=== PATIENT | female | born 1970 ===

== ENCOUNTER → 2020-03-11 14:30 | Outpatient (BNVA) | payer OTHER, SELFPAY | PROVIDERS: PCP Nurse Practitioner Family; Visit Provider Internal Medicine | DX: J45.909 Unspecified asthma, uncomplicated (principal); Z79.899 Other long term (current) drug therapy | CPT/HCPCS: 99212 ==

== ENCOUNTER 2020-04-03 13:33 | Outpatient (REF) | payer OTHER, SELFPAY ==
--- NOTE | 2020-04-03 | MM_ITS ---
EXAMINATION: MM SCREENING DIGITAL BREAST TOMOSYNTHESIS, BILATERAL CLINICAL INFORMATION: Screening. Asymptomatic. The lifetime risk of breast cancer based on the Tyrer-Cuzick Model is 8%. COMPARISON: Mammography: 04/13/2016, 05/15/2013 TECHNIQUE: Digital breast tomosynthesis is performed in both the craniocaudal and mediolateral oblique views along with computer-aided detection (CAD). Synthesized 2D images are generated from the tomosynthesis. FINDINGS: There are scattered areas of fibroglandular density (ACR BI-RADS breast composition Category b). There is fine fibronodular parenchymal pattern similar to prior studies. Nodularity posterior 3:00 left breast is decreased from 2014. Scattered bilateral parenchymal asymmetries are stable. Again, there is intramammary node upper left breast. There are no abnormal calcifications. No significant changes from prior exams. MM/MM tomosynthesis screening BI IMPRESSION: No mammographic evidence of malignancy. ASSESSMENT: BI-RADS 2: Benign RECOMMENDATION: Routine annual mammography screening. This patient's information was entered into a reminder system with a target due date for their next mammogram.
== END 2020-04-03 13:34 | disposition home or self-care (01) ==
LOC: HO.MAMMO 13:33
PROVIDERS: PCP Nurse Practitioner Family; Visit Provider Advanced Practice Midwife
DX: Z12.31 Encounter for screening mammogram for malignant neoplasm of breast (principal)
CPT/HCPCS: 77063; 77067

== ENCOUNTER 2020-07-05 14:55 | Outpatient (REF) | payer OTHER, SELFPAY ==
[2020-07-10 04:48] LABS: HPV mRNA E6/E7 rflx Not Detected (Not Detected)
== END 2020-07-05 14:56 | disposition home or self-care (01) ==
LOC: HO.LAB 14:55
PROVIDERS: PCP Nurse Practitioner Family; Visit Provider Advanced Practice Midwife
DX: Z01.419 Encounter for gynecological examination (general) (routine) without abnormal findings (principal); Z11.51 Encounter for screening for human papillomavirus (HPV); N95.0 Postmenopausal bleeding; Z92.29 Personal history of other drug therapy
CPT/HCPCS: 36415; 87624; 88142

== ENCOUNTER 2020-07-18 11:33 | Outpatient (REF) | payer OTHER, SELFPAY ==
--- NOTE | ~2020-07-18 | US_ITS ---
EXAMINATION: ULTRASOUND PELVIS COMPLETE CLINICAL INFORMATION: Postmenopausal bleeding. COMPARISON: None TECHNIQUE: Transabdominal and transvaginal imaging of pelvis is performed. FINDINGS: The uterus is anteverted and anteflexed measuring 7.8 cm in length, 3.4 cm in AP and 4.1 cm in transverse dimension. The endometrial thickness is 0.3 cm. There is minimal fluid in the cervix. The right ovary measures 1.8 x 1.8 x 1.8 cm and volume 4.1 mL. A dominant follicle is noted. Previously right ovary measured 2.7 x 1.7 x 2.0 cm. The left ovary measures 2.2 x 1.8 x 1.6 cm and volume 3.7 mL. It appears unremarkable. Previously it measured 2.7 x 1.4 x 1.8 cm. There is no free fluid in the cul-de-sac. US/US pelvic complete IMPRESSION: Unremarkable uterus. Minimal fluid in the cervix. The ovaries are grossly unremarkable. There is a dominant follicle in the right ovary.
--- NOTE | ~2020-07-18 | US_ITS ---
EXAMINATION: ULTRASOUND PELVIS COMPLETE CLINICAL INFORMATION: Postmenopausal bleeding. COMPARISON: None TECHNIQUE: Transabdominal and transvaginal imaging of pelvis is performed. FINDINGS: The uterus is anteverted and anteflexed measuring 7.8 cm in length, 3.4 cm in AP and 4.1 cm in transverse dimension. The endometrial thickness is 0.3 cm. There is minimal fluid in the cervix. The right ovary measures 1.8 x 1.8 x 1.8 cm and volume 4.1 mL. A dominant follicle is noted. Previously right ovary measured 2.7 x 1.7 x 2.0 cm. The left ovary measures 2.2 x 1.8 x 1.6 cm and volume 3.7 mL. It appears unremarkable. Previously it measured 2.7 x 1.4 x 1.8 cm. There is no free fluid in the cul-de-sac. US/US transvaginal IMPRESSION: Unremarkable uterus. Minimal fluid in the cervix. The ovaries are grossly unremarkable. There is a dominant follicle in the right ovary.
== END 2020-07-18 11:34 | disposition home or self-care (01) ==
LOC: HO.US 11:33
PROVIDERS: PCP Nurse Practitioner Family; Visit Provider Advanced Practice Midwife
DX: N95.0 Postmenopausal bleeding (principal); Z92.29 Personal history of other drug therapy
CPT/HCPCS: 76830; 76856

== ENCOUNTER → 2020-07-19 13:40 | Outpatient (BNVA) | payer OTHER, SELFPAY | PROVIDERS: Visit Provider Advanced Practice Midwife ==

== ENCOUNTER → 2020-07-29 10:32 | Outpatient (BNVA) | payer OTHER, SELFPAY | PROVIDERS: PCP Nurse Practitioner Family; Visit Provider Internal Medicine | DX: J45.909 Unspecified asthma, uncomplicated (principal); Z79.51 Long term (current) use of inhaled steroids | CPT/HCPCS: 99212 ==

== ENCOUNTER 2020-08-16 14:56 | Outpatient (REF) | payer OTHER, SELFPAY ==
[2020-08-17 10:21] LABS: Follicle Stimulating Hormone 54.3 mIU/mL
== END 2020-08-16 14:57 | disposition home or self-care (01) ==
LOC: HO.LAB 14:56
PROVIDERS: PCP Internal Medicine; Visit Provider Advanced Practice Midwife
DX: R23.2 Flushing (principal)
CPT/HCPCS: 36415; 83001

== ENCOUNTER → 2020-08-27 11:05 | Outpatient (BNVA) | payer OTHER, SELFPAY | PROVIDERS: PCP Nurse Practitioner Family; Visit Provider Advanced Practice Midwife ==

== ENCOUNTER → 2020-12-23 09:14 | Outpatient (BNVA) | payer OTHER, SELFPAY | PROVIDERS: PCP Internal Medicine; Visit Provider Internal Medicine | DX: J30.9 Allergic rhinitis, unspecified (principal); J45.50 Severe persistent asthma, uncomplicated; Z79.899 Other long term (current) drug therapy | CPT/HCPCS: 99212 ==

== ENCOUNTER 2021-01-31 14:27 | Emergency (ER) | payer OTHER, SELFPAY ==
--- NOTE | ~2021-01-31 | XR_ITS ---
EXAMINATION: XR CHEST CLINICAL INFORMATION: Shortness of breath COMPARISON: None TECHNIQUE: Frontal view of the chest was obtained. FINDINGS: The cardiac and mediastinal contours are stable. The lungs are clear. There is no pleural effusion or pneumothorax. There are degenerative changes of the spine. XR/XR chest 1V IMPRESSION: No evidence for acute disease in the chest.
[2021-01-31 14:38] VITALS: BP 152/88; PULSE 95; RESP 18; TEMP 36.6; O2SAT 95; BMI 26.5
[2021-01-31 15:57] VITALS: BP 128/64; PULSE 105; RESP 20; TEMP 37.7; O2SAT 96
--- NOTE | 2021-01-31 16:50 | ED.SOB ---
HPI - SOB/Dyspnea General Chief Complaint: Dyspnea Stated Complaint: diff breathing, wheezing, body ache Time Seen by Provider: 01/31/21 15:51 History of Present Illness HPI Narrative: 50-year-old female postmenopausal. Presented today with having increasing shortness of breath. Wheezing. Upper respiratory symptoms. She stopped smoking about 5 months ago. Positive coughing congestion upper respiratory symptoms. No change in smell or taste. No diarrhea. Patient got immunized with the Jose Luis and Jose Luis COVID vaccine back on January 23. Patient denies any diaphoresis. No chest pain. Positive generalized body ache. Patient has a history of asthma. Been admitted in the hospital in the past. She cannot recall when the last time she got admitted. No history of congestive heart failure. Patient is postmenopausal. Related Data Home Medications Medication Instructions Recorded Confirmed albuterol sulfate 90 mcg/actuation 2 puff INHALATION QID 03/11/20 12/23/20 aerosol inhaler alcohol swabs pad TOPICAL 03/11/20 12/23/20 cyclobenzaprine 10 mg tablet 10 mg PO BEDTIME PRN 03/11/20 12/23/20 fluticasone 500 mcg-salmeterol 50 INHALATION 03/11/20 mcg/dose blistr powdr for inhalation fluticasone propionate 50 INTRANASAL 03/11/20 12/23/20 mcg/actuation nasal spray,suspension ibuprofen 800 mg tablet 800 mg PO TID PRN 03/11/20 12/23/20 ipratropium 0.5 mg-albuterol 3 mg ml INHALATION QID PRN 03/11/20 12/23/20 (2.5 mg base)/3 mL nebulization soln montelukast 10 mg tablet 10 mg PO DAILY 03/11/20 12/23/20 nicotine (polacrilex) 2 mg gum mg PO 03/11/20 12/23/20 omeprazole 20 mg capsule,delayed 20 mg PO DAILY 03/11/20 12/23/20 release Previous Rx's Medication Instructions Recorded fluticasone 250 mcg-salmeterol 50 1 inh INHALATION BID 30 Days #60 ea 07/29/20 mcg/dose blistr powdr for inhalation (Advair Diskus) mepolizumab 100 mg/mL subcutaneous 100 mg SUBCUT Q4W #1 ml 08/20/20 auto-injector estradiol 0.05 mg-norethindrone 1 patch TRANSDERMAL 2XW #8 ea 08/27/20 0.25 mg/24 hr semiwkly transderm patch acetaminophen 300 mg-codeine 30 mg 1 tab PO Q8H PRN 3 Days #7 tab 01/31/21 tablet azithromycin 250 mg tablet See Rx Instructions .ROUTE 01/31/21 .COMPLEX #6 tab prednisone 20 mg tablet 40 mg PO DAILY #10 tab 01/31/21 Allergies Allergy/AdvReac Type Severity Reaction Status Date / Time varenicline [From CHANTIX] Allergy Unknown UNKNOWN Verified 12/23/20 09:21 nicotine [From NICODERM CQ] AdvReac Mild RASH Verified 12/23/20 09:21 Review of Systems Review of Systems: Positive coughing congestion upper respiratory symptoms. Positive generalized malaise. No change in smell or taste. No diarrhea no GI symptoms. Tolerating p.o.. Yes all other systems are reviewed and are negative PMFSH Past Medical History Attestation statement: The following information was validated with the patient. Medical History Allergic rhinitis Asthma Bronchial asthma Surgical History Hx of cholecystectomy Social History Social History Use of substances other than those prescribed or required for medical reasons: No Advance Directives: No Advance Directives Information Provided: No Physical Exam Vital Signs: Vital Signs: Last Vital Signs Temp 100.1 F 01/31/21 17:13 Pulse 113 H 01/31/21 17:20 Resp 20 01/31/21 17:13 BP 128/84 01/31/21 17:13 Pulse Ox 98 01/31/21 17:13 Body Mass Index 26.5 Appearance: Alert. Oriented X3. No acute distress. Eyes: Pupils equal, round and reactive to light. ENT: Pharynx normal. Neck: Normal inspection. Neck supple. No lymph nodes noted. No crepitus CVS: Normal heart rate and rhythm. Pulses normal. Normal S1 and S2 Respiratory: No respiratory distress. Positive expiratory wheezing noted bilaterally. Abdomen: Soft and nontender. No rigidity. No distention. good BS x4 Skin: Skin warm and dry. Normal skin color. Normal skin turgor. Extremities: No lower extremity edema. Neurovascular intact to all extremities. No Lacerations. No Rash Neuro: Oriented X 3. No motor deficit. No sensory deficit. Moving all extermities. No slurred speech MDM - SOB/Dyspnea MDM Narrative Medical decision making narrative: Patient symptom improved after neb treatment. Chest x-ray was grossly negative for any acute evidence of pneumonia pneumothorax. Patient well-appearing. O2 sat 96% on room air. COVID test was negative. Will discharge patient home. In stable condition. Differential Diagnosis Differential diagnosis: Likely asthma with exacerbation Medical Records Attestation: I reviewed the patient's medical records. Lab Data Attestation: I reviewed the patient's lab results. Labs: Lab Results 01/31/21 Range/Units 16:47 COVID-19 (ANNIKA) Negative (Negative) COVID-19 Clin Com See Note Discharge Plan Discharge Clinical Impression: Asthma, Upper respiratory infection Patient Disposition: Home, Self-Care Instructions: Asthma (ED), Upper Respiratory Infection (ED) Prescriptions: New azithromycin 250 mg tablet See Rx Instructions .ROUTE .COMPLEX Qty: 6 RF: 0 prednisone 20 mg tablet 40 mg PO DAILY Qty: 10 RF: 0 acetaminophen-codeine 300-30 mg tablet 1 tab PO Q8H PRN (Reason: pain) 3 Days Qty: 7 RF: 0 No Action mepolizumab 100 mg/mL auto-injector 100 mg subcut Q4W Qty: 1 RF: 12 nicotine (polacrilex) 2 mg gum PO RF: 0 fluticasone propionate 50 mcg/actuation spray,suspension intranasal RF: 0 ibuprofen 800 mg tablet 800 mg PO TID PRN (Reason: migraine) RF: 0 montelukast 10 mg tablet 10 mg PO DAILY RF: 0 omeprazole 20 mg capsule,delayed release(DR/EC) 20 mg PO DAILY RF: 0 fluticasone propion-salmeterol 500-50 mcg/dose blister with device inhalation RF: 0 cyclobenzaprine 10 mg tablet 10 mg PO BEDTIME PRN (Reason: muscle spasm) RF: 0 alcohol swabs Pads, Medicated topical RF: 0 albuterol sulfate 90 mcg/actuation HFA aerosol inhaler 2 puff inhalation QID RF: 0 ipratropium-albuterol 0.5 mg-3 mg(2.5 mg base)/3 mL solution for nebulization inhalation QID PRNRF: 0 fluticasone propion-salmeterol [Advair Diskus] 250-50 mcg/dose blister with device 1 inh inhalation BID 30 Days Qty: 60 RF: 5 estradiol-norethindrone acet 0.05-0.25 mg/24 hr patch semiweekly 1 patch transdermal 2XW Qty: 8 RF: 11 Referrals: Fern Schneider MD [Primary Care Provider] - 2 days
[2021-01-31 17:13] VITALS: BP 128/84; PULSE 114; RESP 20; TEMP 37.8; O2SAT 98
[2021-01-31 17:20] VITALS: PULSE 113; O2SAT 96
[2021-01-31 17:20] LABS: COVID-19 Test Negative (Negative)
[2021-01-31] MEDS: Albuterol/Iprat 2.5/0.5MG 3 ML AMPUL.NEB INHALE (17:20)
[2021-01-31 18:00] VITALS: BP 121/81; PULSE 121; RESP 20; TEMP 37.9; O2SAT 94
[2021-01-31] MEDS: predniSONE 20 MG TABLET 40 MG PO (18:53)
[2021-01-31] MEDS: Ibuprofen 400 MG TABLET PO (18:53)
[2021-01-31] MEDS: Acetaminophen 325 MG TABLET 650 MG PO (18:54)
== END 2021-01-31 19:30 | disposition home or self-care (01) ==
PROVIDERS: Emergency Medicine; Emergency Provider Emergency Medicine Emergency Medical Services; PCP Internal Medicine
DX: J06.9 Acute upper respiratory infection, unspecified (principal); J45.909 Unspecified asthma, uncomplicated; N95.9 Unspecified menopausal and perimenopausal disorder; M79.10 Myalgia, unspecified site; Z79.899 Other long term (current) drug therapy; Z20.822 Contact with and (suspected) exposure to COVID-19
CPT/HCPCS: 36415; 71045; 87635; 94640; 99284

== ENCOUNTER 2021-05-15 13:56 | Outpatient (REF) | payer OTHER, SELFPAY ==
--- NOTE | ~2021-05-15 | XR_ITS ---
EXAMINATION: XR HAND, LEFT CLINICAL INFORMATION: Cellulitis of left finger COMPARISON: None TECHNIQUE: PA, lateral, and oblique views of the left hand. FINDINGS: No fracture. Alignment is anatomic. Joint spaces are maintained. No erosions or soft tissue calcifications.. There is mild soft tissue swelling middle finger without soft tissue calcification. XR/XR hand LT min 3V IMPRESSION: Mild soft tissue swelling middle finger with. No visible fracture, dislocation or subluxation seen. No bony erosive changes.
== END 2021-05-15 13:57 | disposition home or self-care (01) ==
LOC: HO.XRAY 13:56
PROVIDERS: Visit Provider Nurse Practitioner Primary Care
DX: L03.012 Cellulitis of left finger (principal)
CPT/HCPCS: 73130

== ENCOUNTER → 2021-07-03 13:36 | Outpatient (BNVA) | payer OTHER, SELFPAY | PROVIDERS: PCP Internal Medicine; Visit Provider Internal Medicine | DX: J45.909 Unspecified asthma, uncomplicated (principal) | CPT/HCPCS: 94010; 99212 ==

== ENCOUNTER → 2021-10-02 13:13 | Outpatient (BNVA) | payer OTHER, SELFPAY | PROVIDERS: PCP Internal Medicine; Visit Provider Advanced Practice Midwife | DX: Z13.89 Encounter for screening for other disorder (principal) ==

== ENCOUNTER 2021-10-17 13:25 | Outpatient (REF) | payer OTHER, SELFPAY ==
--- NOTE | ~2021-10-17 | MM_ITS ---
EXAMINATION: MM SCREENING DIGITAL BREAST TOMOSYNTHESIS, BILATERAL CLINICAL INFORMATION: Screening. Asymptomatic. The lifetime risk of breast cancer based on the Tyrer-Cuzick Model is 8%. COMPARISON: Mammography: 04/03/2020, 04/13/2016 TECHNIQUE: Digital breast tomosynthesis is performed in both the craniocaudal and mediolateral oblique views along with computer-aided detection (CAD). Synthesized 2D images are generated from the tomosynthesis. FINDINGS: There are scattered areas of fibroglandular density (ACR BI-RADS breast composition Category b). Breast tissue composition borders on heterogeneously dense. There is fine fibronodular parenchymal pattern similar to prior studies. No interval dominant nodule. There are no significant masses, abnormal calcifications, or other abnormalities. The axilla and skin contours are unremarkable. MM/MM tomosynthesis screening BI IMPRESSION: No mammographic evidence of malignancy. ASSESSMENT: BI-RADS 2: Benign RECOMMENDATION: Routine annual mammography screening. This patient's information was entered into a reminder system with a target due date for their next mammogram.
== END 2021-10-17 13:26 | disposition home or self-care (01) ==
LOC: HO.MAMMO 13:25
PROVIDERS: PCP Nurse Practitioner Primary Care; Visit Provider Advanced Practice Midwife
DX: Z12.31 Encounter for screening mammogram for malignant neoplasm of breast (principal)
CPT/HCPCS: 77063; 77067

== ENCOUNTER → 2022-02-17 13:53 | Outpatient (BNVA) | payer OTHER, SELFPAY | PROVIDERS: PCP Nurse Practitioner Primary Care; Visit Provider Internal Medicine | DX: J45.909 Unspecified asthma, uncomplicated (principal) | CPT/HCPCS: 99212 ==

== ENCOUNTER 2022-06-12 14:59 | Outpatient (REF) | payer OTHER, SELFPAY ==
--- NOTE | ~2022-06-12 | US_ITS ---
EXAMINATION: US PELVIS CLINICAL INFORMATION: Postmenopausal bleeding COMPARISON: 07/18/2020 TECHNIQUE: Ultrasound of the pelvis is performed using both transabdominal and transvaginal transducers along with Doppler. Transvaginal imaging is performed due to inadequate visualization transabdominally. FINDINGS: Uterus: The uterus is anteverted and measures 6.1 x 2.9 x 3.0 cm. The double wall endometrial thickness is 0.4 mm. The uterus is smooth in contour and has normal myometrial echogenicity. Anterior uterine wall vascular calcification is noted. Adnexa: Both ovaries are visualized. There is normal color flow to the adnexa. There is no ovarian torsion. There is no pelvic ascites or fluid collection. Right ovary measures 2.7 x 1.8 x 1.9 cm. 1.4 x 1.1 x 1.1 cm intraovarian cyst Left ovary measures 2.6 x 1.7 x 1.1 cm. US/US pelvic and transvaginal IMPRESSION: 1. Endometrial thickness is within normal limits for a postmenopausal patient. 2. Right intraovarian 1.4 cm cyst. Recommend follow-up ultrasound in 6-12 weeks.
== END 2022-06-12 15:00 | disposition home or self-care (01) ==
LOC: HO.US 14:59
PROVIDERS: PCP Internal Medicine; Visit Provider Internal Medicine
DX: N95.0 Postmenopausal bleeding (principal)
CPT/HCPCS: 76830; 76856

== ENCOUNTER → 2022-06-29 08:37 | Outpatient (BNVA) | payer OTHER, SELFPAY | PROVIDERS: PCP Internal Medicine; Visit Provider Advanced Practice Midwife | DX: R23.2 Flushing (principal); R03.0 Elevated blood-pressure reading, without diagnosis of hypertension | CPT/HCPCS: 99212 ==

== ENCOUNTER → 2022-08-19 14:30 | Outpatient (BNVA) | payer OTHER, SELFPAY | PROVIDERS: PCP Internal Medicine; Visit Provider Internal Medicine | DX: J45.909 Unspecified asthma, uncomplicated (principal); Z79.899 Other long term (current) drug therapy | CPT/HCPCS: 99212 ==

== ENCOUNTER → 2022-09-23 10:23 | Outpatient (BNVA) | payer OTHER, SELFPAY | PROVIDERS: PCP Internal Medicine; Visit Provider Nurse Practitioner Family | DX: J45.901 Unspecified asthma with (acute) exacerbation (principal); Z79.52 Long term (current) use of systemic steroids; Z79.899 Other long term (current) drug therapy | CPT/HCPCS: 99212 ==

== ENCOUNTER 2022-10-30 16:19 | Outpatient (REF) | payer OTHER, SELFPAY ==
--- NOTE | ~2022-10-30 | XR_ITS ---
EXAMINATION: XR CHEST CLINICAL INFORMATION: 6 and coughing for 3 to 4 weeks, subacute, COMPARISON: 02/20/2021, 03/05/2019 TECHNIQUE: 2 views of the chest were obtained. FINDINGS: There is no gross pneumothorax. Heart size is normal. Mild rightward curvature of the thoracic spine with degenerative changes. Surgical clips right upper quadrant. No pleural effusion. No focal consolidation to to pneumonia. XR/XR chest 2V IMPRESSION: No evidence of pneumonia or pleural effusion.
== END 2022-10-30 16:20 | disposition home or self-care (01) ==
LOC: HO.XRAY 16:19
PROVIDERS: PCP Registered Nurse; Visit Provider Registered Nurse
DX: R05.2 Subacute cough (principal)
CPT/HCPCS: 71046

== ENCOUNTER 2022-12-08 18:13 | Outpatient (REF) | payer OTHER, SELFPAY ==
[2022-12-09 11:45] LABS: CT PCR NOT DETECTED (Not Detect.); NG PCR NOT DETECTED (Not Detect.)
== END 2022-12-08 18:14 | disposition home or self-care (01) ==
LOC: HO.LNP 18:13
PROVIDERS: Visit Provider Nurse Practitioner Primary Care
DX: R30.0 Dysuria (principal); Z20.822 Contact with and (suspected) exposure to COVID-19
CPT/HCPCS: 0353U; 87086; 87088; 87186

== ENCOUNTER 2022-12-08 19:19 | Outpatient (REF) | payer OTHER, SELFPAY | END 2022-12-08 19:20 | disposition home or self-care (01) | LOC: HO.HHCLNP 19:19 | PROVIDERS: Visit Provider Nurse Practitioner Primary Care | DX: R30.0 Dysuria (principal) | CPT/HCPCS: 87086; 87088; 87186 ==

== ENCOUNTER 2023-01-26 11:42 | Outpatient (REF) | payer OTHER, SELFPAY ==
--- NOTE | ~2023-01-26 | MM_ITS ---
EXAMINATION: MM SCREENING DIGITAL BREAST TOMOSYNTHESIS, BILATERAL CLINICAL INFORMATION: Screening. Asymptomatic. COMPARISON: Mammography: This study is compared with prior exams dating back to 2016. TECHNIQUE: Digital breast tomosynthesis is performed in both the craniocaudal and mediolateral oblique views along with computer-aided detection (CAD). Synthesized 2D images are generated from the tomosynthesis. FINDINGS: There are scattered areas of fibroglandular density (ACR BI-RADS breast composition Category b). There are no significant masses, abnormal calcifications, or other abnormalities. MM/MM tomosynthesis screening BI IMPRESSION: No mammographic evidence of malignancy. ASSESSMENT: BI-RADS BI-RADS 1 - Negative RECOMMENDATION: Routine annual mammography screening. 1 year F/U This examination should not preclude the clinical evaluation of a suspicious palpable abnormality. This patient's information was entered into a reminder system with a target due date for their next mammogram.
== END 2023-01-26 11:43 | disposition home or self-care (01) ==
LOC: HO.MAMMO 11:42
PROVIDERS: PCP Internal Medicine; Visit Provider Internal Medicine
DX: Z12.31 Encounter for screening mammogram for malignant neoplasm of breast (principal)
CPT/HCPCS: 77063; 77067

== ENCOUNTER → 2023-01-26 11:45 | Outpatient (BNV) | payer OTHER, SELFPAY | PROVIDERS: PCP Internal Medicine; Visit Provider Radiology Diagnostic Radiology | DX: Z12.31 Encounter for screening mammogram for malignant neoplasm of breast (principal) | CPT/HCPCS: 77063; 77067 ==

== ENCOUNTER 2023-02-21 09:39 | Emergency (ER) | payer OTHER, SELFPAY ==
--- NOTE | ~2023-02-21 | XR_ITS ---
EXAMINATION: XR CHEST CLINICAL INFORMATION: Cough COMPARISON: Chest radiograph from 10/30/2022 TECHNIQUE: 2 views of the chest were obtained. FINDINGS: No focal consolidation. No pneumothorax. Trachea is midline. Cardiac mediastinal silhouette is not enlarged. Aorta demonstrates mild tortuosity. No large pleural effusion. Osseous structures are intact. Soft tissues are unremarkable. Surgical clips right upper abdomen. XR/XR chest 2V IMPRESSION: No acute cardiopulmonary process.
[2023-02-21 09:41] VITALS: BP 115/94; PULSE 105; RESP 20; TEMP 36.7; O2SAT 97; BMI 31.8
--- NOTE | 2023-02-21 09:53 | ED_ITS ---
HPI - Asthma General Chief Complaint: Asthma Stated Complaint: Asthma Time Seen by Provider: 02/21/23 09:52 Source: patient, RN notes reviewed and old records reviewed Mode of arrival: ambulatory History of Present Illness HPI Narrative: 52-year-old female with a past medical history of allergic rhinitis, asthma, presenting to the ED complaining of asthma exacerbation x 4 days with productive cough, SOB, and chest discomfort with coughing. Admits to using nebulizer and inhalers at home without relief. Denies fever/chills, sore throat, recent travel, sick contacts. MD complaint: asthma attack and shortness of breath Related Data Home Medications Medication Instructions Recorded Confirmed albuterol sulfate 90 mcg/actuation 2 puff inhalation QID 03/11/20 09/23/22 aerosol inhaler alcohol swabs pad topical 03/11/20 09/23/22 cyclobenzaprine 10 mg tablet 10 mg PO BEDTIME PRN muscle spasm 03/11/20 09/23/22 fluticasone propionate 50 intranasal 03/11/20 09/23/22 mcg/actuation nasal spray,suspension ibuprofen 800 mg tablet 800 mg PO TID PRN migraine 03/11/20 09/23/22 ipratropium 0.5 mg-albuterol 3 mg ml inhalation QID PRN 03/11/20 09/23/22 (2.5 mg base)/3 mL nebulization soln montelukast 10 mg tablet 10 mg PO DAILY 03/11/20 09/23/22 nicotine (polacrilex) 2 mg gum mg PO 03/11/20 09/23/22 cholecalciferol (vitamin D3) 50 50 mcg PO DAILY 07/03/21 09/23/22 mcg (2,000 unit) capsule Previous Rx's Medication Instructions Recorded fluticasone 250 mcg-salmeterol 50 1 inh inhalation BID ASTHMA 30 07/29/20 mcg/dose blistr powdr for days #60 ea inhalation (Advair Diskus) Nucala 100 mg/mL subcutaneous 100 mg subcut Q4W #1 mL 09/18/22 auto-injector (mepolizumab) azithromycin 250 mg tablet See Rx Instructions PO .COMPLEX #6 09/23/22 tabs prednisone 10 mg tablet 40 mg (4 x 10 mg) PO DAILY 5 days 02/01/23 #20 tabs prednisone 20 mg tablet 40 mg (2 x 20 mg) PO DAILY 5 days 02/21/23 #10 tabs Allergies Allergy/AdvReac Type Severity Reaction Status Date / Time varenicline [From CHANTIX] Allergy Unknown UNKNOWN Verified 09/23/22 10:30 nicotine [From NICODERM CQ] AdvReac Mild RASH Verified 09/23/22 10:30 Review of Systems Review of Systems: Constitutional: No Fever, No Chills ENT/Mouth: No Ear Pain, No Nasal Congestion, No sore throat, No Rhinorrhea, No Swallowing Difficulty Cardiovascular: + Chest Pain w/cough, + SOB Respiratory: + Cough, + Sputum, + Wheezing Gastrointestinal: No Nausea, No Vomiting, No Abdominal pain Musculoskeletal: No joint pain, No Myalgias, No Joint Swelling Skin: No Skin Lesions, No rash Neuro: No Weakness Yes all other systems are reviewed and are negative Constitutional: Constitutional: Reports as per [facility] Past Medical History Attestation statement: The following information was validated with the patient. Source: old records reviewed Medical History Allergic rhinitis Bronchial asthma Asthma Surgical History Hx of cholecystectomy Social History Social History Alcohol intake: current Alcohol intake frequency: a few times a month Patient Tobacco Use Status: Former Tobacco user Advance Directives: No Sexual orientation: Straight/Heterosexual Gender identity: Female Physical Exam Vital Signs: Vital Signs: Last Vital Signs Temp 98.0 F 02/21/23 09:41 Pulse 84 02/21/23 12:46 Resp 18 02/21/23 12:46 BP 115/94 H 02/21/23 09:41 Pulse Ox 97 02/21/23 09:41 O2 Del Method Room Air 02/21/23 09:41 BMI result Body Mass Index 31.8 Const: General: cooperative, healthy appearing and no acute distress Orientation/consciousness: patient oriented x3 Limitations: no limitations HEENT: Head: Yes normal to inspection and Yes atraumatic Ears: hearing grossly normal bilaterally General nose exam: Normal external nose present Face and sinus: Yes normal facial exam Mouth: Normal oral and palatal mucosa present and no drooling Eyes: General: appearance normal, both eyes and all related structures EOM: EOMs intact bilaterally Neck: Neck: Yes normal visual inspection and Yes no meningeal signs Resp: Effort & Inspection: normal respiratory effort, Actively coughing and no respiratory distress Auscultation: wheezes expiratory wheezes and throughout Cardio: Rate: regular rate Heart sounds: S1 normal heart sound present and S2 normal heart sound present Skin: Rashes: no rashes Wounds: no wounds Neuro: General: patient oriented x3, tone normal and no meningeal signs Cranial nerves: Yes CN's II-XII intact bilaterally Gait exam (Neuro): Normal gait present Extrem: General: Yes normal to inspection Course Course Course Narrative: XR chest 2V IMPRESSION: No acute cardiopulmonary process. -COVID negative -1150--on re-evaluation post DuoNeb patient with continued expiratory wheeze, additional neb ordered. -1333--on re-evaluation breath sounds improved, still slight end expiratory residual wheeze. Additional DuoNeb offered however patient would like to be discharged home, she has machine at home with solution. Discussed diligent use of machine over the next few days. Results discussed with patient including worrisome signs and symptoms and strict return precautions, and when to return to the emergency department. They verbalized understanding and feel safe for discharge at this time. Medications Administered Discontinued Medications Generic Name Dose Route Start Last Admin Trade Name Valdezq PRN Reason Stop Dose Admin Albuterol/Ipratropium 3 ml 02/21/23 11:32 02/21/23 11:34 Albuterol/Iprat 2.5/0.5mg 3 Ml Ampul.Neb INHALE 02/21/23 11:33 3 ml ONCE ONE Administration Albuterol/Ipratropium 3 ml 02/21/23 11:49 02/21/23 12:45 Albuterol/Iprat 2.5/0.5mg 3 Ml Ampul.Neb INHALE 02/21/23 11:50 3 ml ONCE ONE Administration Prednisone 40 mg 02/21/23 10:02 02/21/23 10:58 Prednisone 20 Mg Tablet PO 02/21/23 10:03 40 mg ONCE ONE Administration Medical Decision Making Medical Decision Making MDM Narrative: 52-year-old female with a past medical history of allergic rhinitis, asthma, presenting to the ED complaining of asthma exacerbation x 4 days with productive cough, SOB, and chest discomfort with coughing. On exam mildly tachycardic likely from coughing, NAD, nontoxic appearing, no respiratory distress, diffuse expiratory wheeze noted. Concern for viral syndrome vs asthma exacerbation vs pneumonia vs bronchitis. Lower suspicion for ACS/PE Plan: COVID-19 testing, CXR, ED bronchodilator protocol, PO Prednisone Please refer to course for remaining clinical decision making, interpretation of labs/imaging results, and discussions with consultants and/or family members. Differential Diagnosis Differential Diagnoses: The differential diagnosis associated with the presentation includes As above Lab Data Labs: Lab Results 02/21/23 Range/Units 10:08 COVID-19 (ANNIKA) Negative (Negative) COVID-19 Clin Com See Note Independent Interpretation I performed an independent interpretation of an: Plain X-Ray Radiology Impression Discussion of test interpretation with radiology: I have reviewed the radiologist's reading. External Record Review External record reviewed: Inpatient record, Office record, Outpatient record, Prior outpatient labs, Prior outpatient radiology, Primary care record and Outside ED record Tests considered The following testing was considered but not selected: As above Prescription Management I considered prescription management with: Antibiotic Chronic Conditions Patient?s care impacted by: Other (asthma) Discharge Plan Discharge Clinical Impression: Asthma with acute exacerbation Patient Disposition: Home, Self-Care Instructions: Asthma (DC) Additional Instructions: Chest x-ray unremarkable. You tested negative for COVID-19 Continue to use your neb machine and inhalers at home In addition take prednisone as prescribed Follow-up with your doctor If symptoms persist or worsen return to the ED Prescriptions: New prednisone 20 mg tablet 40 mg PO DAILY 5 Days Qty: 10 0RF No Action Nucala 100 mg/mL auto-injector 100 mg subcut Q4W Qty: 1 11RF prednisone 10 mg tablet 40 mg PO DAILY 5 Days Qty: 20 0RF nicotine (polacrilex) 2 mg gum PO fluticasone propionate 50 mcg/actuation spray,suspension intranasal ibuprofen 800 mg tablet 800 mg PO TID PRN (Reason: migraine) montelukast 10 mg tablet 10 mg PO DAILY cyclobenzaprine 10 mg tablet 10 mg PO BEDTIME PRN (Reason: muscle spasm) alcohol swabs Pads, Medicated topical albuterol sulfate 90 mcg/actuation HFA aerosol inhaler 2 puff inhalation QID ipratropium-albuterol 0.5 mg-3 mg(2.5 mg base)/3 mL solution for nebulization inhalation QID PRN fluticasone propion-salmeterol [Advair Diskus] 250-50 mcg/dose blister with device 1 inh inhalation BID 30 Days Qty: 60 5RF cholecalciferol (vitamin D3) 50 mcg (2,000 unit) capsule 50 mcg PO DAILY azithromycin 250 mg tablet See Rx Instructions PO .COMPLEX Qty: 6 0RF Rx Instructions: For 250 mg dose pack: take 500 mg today (day 1), then 250 mg for 4 days (days 2-5) PO Referrals: Fern Schneider MD [Primary Care Provider] - 3 days Stand Alone Forms: Work/School Release
[2023-02-21 10:36] LABS: COVID-19 Test Negative (Negative); IDNOW Serial# BCCEAD1C
[2023-02-21] MEDS: predniSONE 20 MG TABLET 40 MG PO (10:58)
--- NOTE | 2023-02-21 11:00 | PC.NURSE ---
pt medicated per MAR
[2023-02-21 11:34] VITALS: PULSE 78; RESP 16; O2SAT 95
[2023-02-21] MEDS: Albuterol/Iprat 2.5/0.5MG 3 ML AMPUL.NEB INHALE ×2 (11:34→12:45)
[2023-02-21 12:46] VITALS: PULSE 84; RESP 18; O2SAT 96
== END 2023-02-21 13:44 | disposition home or self-care (01) ==
PROVIDERS: Emergency Provider Emergency Medicine; PCP Internal Medicine
DX: J45.901 Unspecified asthma with (acute) exacerbation (principal); R05.9 Cough, unspecified; R07.89 Other chest pain; R06.02 Shortness of breath; Z11.52 Encounter for screening for COVID-19; Z20.822 Contact with and (suspected) exposure to COVID-19
CPT/HCPCS: 71046; 87635; 94640; 99283; 99284

== ENCOUNTER 2023-03-01 14:03 | Outpatient (AMB) | payer OTHER, SELFPAY ==
--- NOTE | 2023-03-01 14:07 | A.OFFVIS_ITS ---
Intake Vital Signs 03/01/23 14:09 Height 5 ft 1 in Weight 166 lb BMI 31.4 BP 110/72 Blood Pressure Location Lt brachial Position Sitting Pulse 107 H Pulse Source Pulse Oximeter Pulse Oximetry (%) 98 Oxygen Delivery Method Room Air Intake Visit Reasons: Asthma Intake Note: pt is here for follow up and still on Nucala, and feeling okay and she does feel little wheezy. Cloth Shrinking Tester Required: No Allergies varenicline [From CHANTIX] Allergy (Unknown, Verified 03/01/23 14:26) UNKNOWN nicotine [From NICODERM CQ] Adverse Reaction (Mild, Verified 03/01/23 14:26) RASH Medication List - Last Reconciled 03/01/23 by Lianet Catalan MD albuterol sulfate 90 mcg/actuation 2 puffs inhalation QID alcohol swabs pad topical cholecalciferol (vitamin D3) 50 mcg PO DAILY cyclobenzaprine 10 mg PO BEDTIME PRN fluticasone propion-salmeterol 250-50 mcg/dose (Advair Diskus) 1 inh inhalation BID 30 days fluticasone propionate 50 mcg/actuation intranasal ibuprofen 800 mg PO TID PRN ipratropium-albuterol 0.5 mg-3 mg(2.5 mg base)/3 mL mL inhalation QID PRN montelukast 10 mg PO DAILY nicotine (polacrilex) mg PO Nucala (mepolizumab) 100 mg subcut Q4W NS Do you need a note to return to daycare/school/sports/work: No HPI Asthma HPI Details 52 YEARS OLD FEMALE A KNOWN CASE OF CHRONIC PERSISTENT BRONCHIAL ASTHMA, WITH RECURRENT ACUTE EXACERBATIONS, BUT HAD IMPROVED SIGNIFICANTLY AFTER SHE WAS STARTED ON BIOLOGIC TREATMENT ( NUCALA ) SHE WAS SEEN IN THE EMERGENCY ROOM ON 01/31 AND 1021, WITH EXACERBATION OF HER ASTHMA. SHE GOT BETTER BUT, COMPLAINS OF ONGOING WHEEZING, DENIES ANY A.CUTE RESPIRATORY INFECTION. SHE STILL HAS CAT AT HOME, AND SHE HAS BEEN OUT OF ADVAIR FOR THE LAST FEW WEEKS. [facility] Medical History Allergic rhinitis Bronchial asthma Asthma Surgical History Hx of cholecystectomy Social History Alcohol intake: current Alcohol intake frequency: a few times a month Patient Tobacco Use Status: Former Tobacco user Sexual orientation: Straight/Heterosexual Gender identity: Female Review of Systems Const All systems reviewed & are unremarkable except as noted in HPI and below ENT Denies nasal congestion Card Denies chest pain, Denies leg edema and Denies dyspnea on exertion Resp Reports cough (mild , intermittent . ) and Denies dyspnea on exertion GI Reports no additional complaints Reports no additional complaints Musc Reports no additional complaints Neuro Reports no additional complaints Psych Reports no additional complaints Endo Reports no additional complaints Physical Exam Vital Signs: Last Vital Signs Pulse 107 H 03/01/23 14:09 BP 110/72 03/01/23 14:09 Pulse Ox 98 03/01/23 14:09 Oxygen Delivery Method Room Air 03/01/23 14:09 BMI result Body Mass Index 31.4 Const General: healthy appearing, comfortable, no acute distress, alert and awake Orientation/consciousness: patient oriented x3 HEENT Head: Yes normal to inspection General nose exam: No nasal polyps present and No nasal discharge present Face and sinus: Yes sinuses nontender Mouth: oropharynx normal Throat: Yes posterior oropharynx normal Eyes General: appearance normal, both eyes and all related structures Neck Neck: Yes normal visual inspection, Yes no lymphadenopathy, Yes trachea midline and Yes no JVD Thyroid: Thyroid normal Chest Chest palpation & inspection: normal inspection of the chest, normal palpation of entire chest wall and no tenderness Resp Other: Percussion note is resonant,, breath sounds are equal. she does have scattered expiratory wheezes on khadra.th sides Cardio Palpation: normal PMI Rate: regular rate Rhythm: regular rhythm Heart sounds: no gallops and no murmurs Peripheral pulses: Peripheral pulses 2+ throughout GI Palpation (GI): Soft to palpation, nontender, No hepatosplenomegaly present and no masses Auscultation: normal bowel sounds Back/Spine/Pelvis Thoracic/Lumbar Spine: thoracic and lumbar spine normal to inspection Skin General skin exam: no rashes or lesions noted Neuro General: patient oriented x3 and no focal motor deficits Cranial nerves: Yes CN's II-XII intact bilaterally Extrem General: Yes normal to inspection, Yes no clubbing, cyanosis or edema and Yes no calf tenderness Psych Appearance: grossly normal and well kempt Speech and movement: Normal speech and movement present Assessment & Plan Assessment & Plan (1) Allergic rhinitis: Comment: WELL CONTROLLED , WITH MILD INTERMITTENT FLARE UPS. TX CONT. MONTELUKAST 10 MG DAILY , AND FLONASE -50 2 SPRAYS IN EACH NOSTRIL ONCE A DAY . Code(s): J30.9 - Allergic rhinitis, unspecified (2) Bronchial asthma: Comment: PATIENT HAS CHRONIC PERSISTENT BRONCHIAL ASTHMA, MOST LIKELY ALLERGIC, MAIN TRIGGER AT HOME IS CAT , HAS BEEN EXPLAINED MANY TIMES THAT SHE SHOULD TRY TO AVOID TOO MUCH CONTACT. WITH THE CAT, DOES NOT WANT TO GIVE UP. TX : NUCALA 100 MG SUBQ Q.4 WEEKS. ADVAIR 250-51 I.NHALATION B.I.D. IPRATROPIUM-ALBUTEROL SOLUTION IN THE NEBULIZER Q 6 HOURS P.R.N.. FOR OUTDOORS ALBUTEROL HFA Q 4-6 HOURS P.R.N. * PREDNISONE 10 MG 1 B.I .D. FOR 1 WEEK , P.R.N. FOR ACUTE EXACERBATION. PRESCRIBED TO JUST KEEP AT HOME , BUT TRY TO LIMITS THE USE OF PREDNISONE MUCH POSSIB.LE Code(s): J45.909 - Unspecified asthma, uncomplicated Medications: New prednisone 10 mg PO BID 14 tabs 0RF ASTHMA EXCARBATION . 1 week Refilled fluticasone propion-salmeterol 250-50 mcg/dose (Advair Diskus) 1 inh inhalation BID 30 days 60 ea 5RF ASTHMA Coding Level of Care Code Est Pt Level 3 (30635) Diagnoses Allergic rhinitis J30.9 Bronchial asthma J45.909
[2023-03-01 14:09] VITALS: BP 110/72; PULSE 107; O2SAT 98; BMI 31.4
== END 2023-03-01 14:36 | disposition home or self-care (01) ==
PROVIDERS: PCP Internal Medicine; Visit Provider Internal Medicine
DX: J30.9 Allergic rhinitis, unspecified (principal); J45.909 Unspecified asthma, uncomplicated
CPT/HCPCS: 99213

== ENCOUNTER → 2023-03-01 14:03 | Outpatient (BNVA) | payer OTHER, SELFPAY | PROVIDERS: PCP Internal Medicine; Visit Provider Internal Medicine | DX: J45.909 Unspecified asthma, uncomplicated (principal) | CPT/HCPCS: 99212 ==

== ENCOUNTER 2023-06-30 15:00 | Outpatient (AMB) | payer OTHER, SELFPAY ==
--- NOTE | 2023-06-30 15:08 | A.OFFVIS_ITS ---
Intake Vital Signs 06/30/23 15:11 Height 5 ft 1 in Weight 159 lb 13.362 oz BMI 30.2 BP 110/70 Blood Pressure Location Lt brachial Position Sitting Pulse 108 H Pulse Source Pulse Oximeter Pulse Oximetry (%) 98 Oxygen Delivery Method Room Air Intake Visit Reasons: Asthma Intake Note: pt is here for follow up and states no asthma flare ups, on nucala. District Or District Office Director Required: No Allergies varenicline [From CHANTIX] Allergy (Unknown, Verified 06/30/23 15:25) UNKNOWN nicotine [From NICODERM CQ] Adverse Reaction (Mild, Verified 06/30/23 15:25) RASH Medication List - Last Reconciled 06/30/23 by Lianet Catalan MD albuterol sulfate 90 mcg/actuation 2 puffs inhalation QID alcohol swabs pad topical cholecalciferol (vitamin D3) 50 mcg PO DAILY cyclobenzaprine 10 mg PO BEDTIME PRN fluticasone propion-salmeterol 250-50 mcg/dose (Advair Diskus) 1 inh inhalation BID 30 days fluticasone propionate 50 mcg/actuation intranasal ibuprofen 800 mg PO TID PRN ipratropium-albuterol 0.5 mg-3 mg(2.5 mg base)/3 mL mL inhalation QID PRN montelukast 10 mg PO DAILY nicotine (polacrilex) mg PO Nucala (mepolizumab) 100 mg subcut Q4W NS Do you need a note to return to daycare/school/sports/work: No HPI Asthma HPI Details 53 YEARS OLD FEMALE A CASE OF ALLERGIC R HINITIS AND SEVERE BRONCHIAL ASTHMA, NONSMOKER , USING NICOTINE GUM NEEDED. SHE IS ON NUCALA 100 MG SUBQ Q.4 WEEKS. HAS NOT NEEDED. TO USE PREDNISONE SHE IS DOING WELL WITH THE USE OF ADVAIR 250-51 INHALATION B.I.D. AND IPRATROPIUM-ALBUTEROL SOLUTION IN THE NEBULIZER ONLY NEEDED. OR ALBUTEROL HFA 2 PUFFS Q 4-6 HOURS P.R.N. WHEN OUTDOORS. THE USE OF RESCUE MEDS HAS BEEN CUT DOWN SIGNIFICANTLY. SHE ALSO USES MONTELUKAST 10 MG DAILY. SHE IS DOING VERY WELL AND IS VERY HAPPY WITH THE USE OF NUCALA. [facility] Medical History Allergic rhinitis Bronchial asthma Asthma Surgical History Hx of cholecystectomy Social History Alcohol intake: current Alcohol intake frequency: a few times a month Patient Tobacco Use Status: Former Tobacco user Sexual orientation: Straight/Heterosexual Gender identity: Female Review of Systems Const All systems reviewed & are unremarkable except as noted in HPI and below ENT Denies nasal congestion Card Denies chest pain, Denies leg edema and Denies dyspnea on exertion Resp Reports cough (mild , intermittent . ) and Denies dyspnea on exertion GI Reports no additional complaints Reports no additional complaints Musc Reports no additional complaints Neuro Reports no additional complaints Psych Reports no additional complaints Endo Reports no additional complaints Physical Exam Vital Signs: Last Vital Signs Pulse 108 H 06/30/23 15:11 BP 110/70 06/30/23 15:11 Pulse Ox 98 06/30/23 15:11 Oxygen Delivery Method Room Air 06/30/23 15:11 BMI result Body Mass Index 30.2 Const General: healthy appearing, comfortable, no acute distress, alert and awake Orientation/consciousness: patient oriented x3 HEENT Head: Yes normal to inspection General nose exam: No nasal polyps present and No nasal discharge present Face and sinus: Yes sinuses nontender Mouth: oropharynx normal Throat: Yes posterior oropharynx normal Eyes General: appearance normal, both eyes and all related structures Neck Neck: Yes normal visual inspection, Yes no lymphadenopathy, Yes trachea midline and Yes no JVD Thyroid: Thyroid normal Chest Chest palpation & inspection: normal inspection of the chest, normal palpation of entire chest wall and no tenderness Resp Other: Percussion note is resonant,, breath sounds are equal. No wheezes or rhonchi are heard today. Cardio Palpation: normal PMI Rate: regular rate Rhythm: regular rhythm Heart sounds: no gallops and no murmurs Peripheral pulses: Peripheral pulses 2+ throughout GI Palpation (GI): Soft to palpation, nontender, No hepatosplenomegaly present and no masses Auscultation: normal bowel sounds Back/Spine/Pelvis Thoracic/Lumbar Spine: thoracic and lumbar spine normal to inspection Skin General skin exam: no rashes or lesions noted Neuro General: patient oriented x3 and no focal motor deficits Cranial nerves: Yes CN's II-XII intact bilaterally Extrem General: Yes normal to inspection, Yes no clubbing, cyanosis or edema and Yes no calf tenderness Psych Appearance: grossly normal and well kempt Speech and movement: Normal speech and movement present Assessment & Plan Assessment & Plan (1) Allergic rhinitis: Comment: WELL CONTROLLED , WITH MILD INTERMITTENT FLARE UPS. Code(s): J30.9 - Allergic rhinitis, unspecified Plan: TX CONT. MONTELUKAST 10 MG DAILY , AND FLONASE -50 2 SPRAYS IN EACH NOSTRIL ONCE A DAY . (2) Bronchial asthma: Comment: PATIENT HAS CHRONIC PERSISTENT BRONCHIAL ASTHMA, MOST LIKELY ALLERGIC, MAIN TRIGGER AT HOME IS CAT , HAS BEEN EXPLAINED MANY TIMES THAT SHE SHOULD TRY TO AVOID TOO MUCH CONTACT. WITH THE CAT, DOES NOT WANT TO GIVE UP. Code(s): J45.909 - Unspecified asthma, uncomplicated Plan: TX : NUCALA 100 MG SUBQ Q.4 WEEKS. ADVAIR 250-51 I.NHALATION B.I.D. IPRATROPIUM-ALBUTEROL SOLUTION IN THE NEBULIZER Q 6 HOURS P.R.N.. FOR OUTDOORS ALBUTEROL HFA Q 4-6 HOURS P.R.N. Coding Level of Care Code Est Pt Level 3 (46096) Diagnoses Allergic rhinitis J30.9 Bronchial asthma J45.909
[2023-06-30 15:11] VITALS: BP 110/70; PULSE 108; O2SAT 98; BMI 30.2
== END 2023-06-30 15:25 | disposition home or self-care (01) ==
PROVIDERS: PCP Internal Medicine; Visit Provider Internal Medicine
DX: J30.9 Allergic rhinitis, unspecified (principal); J45.909 Unspecified asthma, uncomplicated
CPT/HCPCS: 99213

== ENCOUNTER → 2023-06-30 15:00 | Outpatient (BNVA) | payer OTHER, SELFPAY | PROVIDERS: PCP Internal Medicine; Visit Provider Internal Medicine | DX: J45.909 Unspecified asthma, uncomplicated (principal) | CPT/HCPCS: 99212 ==

== ENCOUNTER 2023-11-06 18:39 | Emergency (ER) | payer OTHER, SELFPAY ==
--- NOTE | ~2023-11-06 | XR_ITS ---
EXAMINATION: XR LUMBOSACRAL SPINE CLINICAL INFORMATION: Right lower back pain COMPARISON: None available. TECHNIQUE: Three views of the lumbosacral spine. FINDINGS: There are 5 lumbar-type nonrib-bearing vertebrae. The vertebral body heights and alignment are maintained. Intervertebral disc spaces are preserved except for probable mild narrowing of the L2-L3 disc space. Posterior elements appear intact. Minimal anterior endplate spurring is noted at multiple levels in the lumbar spine and visualized lower thoracic spine. No suspicious lytic or blastic osseous lesions are seen. Postcholecystectomy surgical clips are noted in the right upper abdominal quadrant. Moderate to large stool burden in the visualized colon. On limited evaluation, sclerosis along the sacral and iliac sides of bilateral sacroiliac joints is suspected. XR/XR lumbar spine 2-3V IMPRESSION: No evidence of acute compression fracture or suspicious osseous lesion. Probable sclerosis along the sacroiliac joints; in the appropriate clinical settings findings may suggest sacroiliitis. Recommend clinical correlation and further imaging evaluation as clinically deemed necessary.
[2023-11-06 18:43] VITALS: BP 151/88; PULSE 95; RESP 18; TEMP 36.7; O2SAT 95; BMI 27.4
--- NOTE | 2023-11-06 21:35 | ED_ITS ---
HPI - General Adult General Chief complaint: Back Pain/Injury Stated complaint: right leg pain Time Seen by Provider: 11/06/23 21:35 History of Present Illness ED Provider: Keerthi GREGG narrative: The patient is a 53-year-old woman who says that she has a history of asthma but is otherwise in fairly good health. She is currently going through menopause. She says that yesterday morning, on Wednesday morning she woke up with significant right lower back pain that has been radiating down the right leg. The pain today was interfering with her ability to walk and she finally drove to the emergency room for evaluation. No fever, sweats, chills. She says that she has been lifting heavy bricks on Wednesday and this might have been a factor in developing this low back pain. She does not have a history of back problems. She works as a COLLECTIONS TECHNICIAN. No bowel or bladder control problems. Related Data Home Medications ?Medication ?Instructions ?Recorded ?Confirmed albuterol sulfate 90 mcg/actuation 2 puff inhalation QID 03/11/20 03/01/23 aerosol inhaler alcohol swabs pad topical 03/11/20 03/01/23 cyclobenzaprine 10 mg tablet 10 mg PO BEDTIME PRN muscle spasm 03/11/20 03/01/23 fluticasone propionate 50 intranasal 03/11/20 03/01/23 mcg/actuation nasal spray,suspension ibuprofen 800 mg tablet 800 mg PO TID PRN migraine 03/11/20 03/01/23 ipratropium 0.5 mg-albuterol 3 mg ml inhalation QID PRN 03/11/20 03/01/23 (2.5 mg base)/3 mL nebulization soln montelukast 10 mg tablet 10 mg PO DAILY 03/11/20 03/01/23 nicotine (polacrilex) 2 mg gum mg PO 03/11/20 03/01/23 cholecalciferol (vitamin D3) 50 50 mcg PO DAILY 07/03/21 03/01/23 mcg (2,000 unit) capsule Previous Rx's ?Medication ?Instructions ?Recorded fluticasone 250 mcg-salmeterol 50 1 inh inhalation BID ASTHMA 30 03/01/23 mcg/dose blistr powdr for days #60 ea inhalation (Advair Diskus) Nucala 100 mg/mL subcutaneous 100 mg subcut Q4W #1 mL 10/18/23 auto-injector (mepolizumab) cyclobenzaprine 10 mg tablet 10 mg PO TID PRN muscle spasm #14 11/06/23 tabs ibuprofen 600 mg tablet 600 mg PO Q6H PRN pain #14 tabs 11/06/23 morphine 15 mg immediate release 15 mg PO Q6H PRN pain #10 tabs 11/06/23 tablet Allergies Allergy/AdvReac Type Severity Reaction Status Date / Time varenicline [From CHANTIX] Allergy Unknown UNKNOWN Verified 11/06/23 18:45 nicotine [From NICODERM CQ] AdvReac Mild RASH Verified 11/06/23 18:45 Review of Systems Review of Systems: Yes all other systems are reviewed and are negative [facility] Past Medical History Medical History Allergic rhinitis Bronchial asthma Asthma Surgical History Hx of cholecystectomy Social History Social History Alcohol intake: current Alcohol intake frequency: a few times a month Patient Tobacco Use Status: Former Tobacco user Advance Directives: No Advance Directives Information Provided: No Do you have a plan to hurt others: No Plan Sexual orientation: Straight/Heterosexual Gender identity: Female Physical Exam ED Vital Signs: Vital Signs - 24 hr 11/06/23 18:43 11/06/23 23:03 11/07/23 00:36 Temperature 98.0 F 97.7 F 98.0 F Pulse Rate 95 79 80 Respiratory Rate 18 18 18 Blood Pressure 151/88 H 126/77 140/79 H Pulse Oximetry 95 99 98 Oxygen Delivery Method Room Air Room Air Room Air 11/07/23 00:40 Temperature 98.0 F Pulse Rate 80 Respiratory Rate 18 Blood Pressure 140/79 H Pulse Oximetry 98 Oxygen Delivery Method Room Air BMI result Body Mass Index 27.4 Const Other: The patient is awake, alert, pleasant, cooperative. She did not look in distress at rest but was in obvious discomfort when moving around. HENMT Other: Face is symmetrical and unremarkable. Mucous membranes moist. Eyes Other: Pupils are round equal, conjunctivae clear Resp Effort & Inspection: normal respiratory effort Auscultation: clear to auscultation bilaterally Cardio Rate: regular rate Rhythm: regular rhythm Heart sounds: S1 normal heart sound present and S2 normal heart sound present GI Other: Abdomen is soft and nontender Back/Spine/Pelvis Other: No definite midline vertebral tenderness. There is right paraspinous tenderness. Skin Other: Skin is dry and unremarkable. Neuro Other: The patient has pain with moving the right leg but no jas weakness. The patient has minimal reflexes in either of the knees or ankles. With augmentation maneuvers there is a 1+ reflexes at the left knee in the left ankle. I really could not get much in the way of reflexes in the right knee or right ankle. Minimal Babinski responses. Sensation is intact throughout. Extrem Other: No calf swelling or tenderness. No peripheral edema. No asymmetry. Negative contralateral straight leg raise test. Positive ipsilateral straight leg raise test. Medications Administered Discontinued Medications Generic Name Dose Route Start Last Admin Trade Name Freq PRN Reason Stop Dose Admin Acetaminophen 975 mg 11/06/23 21:45 11/06/23 21:49 Acetaminophen 325 Mg Tablet PO 11/06/23 21:46 975 mg ONCE ONE Administration Ketorolac Tromethamine 30 mg 11/06/23 21:44 11/06/23 21:49 Ketorolac Tromethamine 30 Mg/Ml Vial IM 11/06/23 21:45 30 mg ONCE ONE Administration Medical Decision Making Medical Decision Making [facility] Narrative: The patient is a 53-year-old woman who presents with right lower back pain radiating down the right leg. There are no red flags. An x-ray of the lumbar spine shows sclerosis along the sacroiliac joints but no other acute findings. This is essentially a sciatica like syndrome. The patient will be given a work note. She will be given prescriptions for ibuprofen, cyclobenzaprine, and morphine. She should follow up with her PCP. Discharge Plan Discharge Clinical Impression: Low back pain radiating to right leg Patient Disposition: Home, Self-Care Instructions: Acute Low Back Pain (ED), Lower Back Exercises (ED) Additional Instructions: You seem to have a significant case of low back pain. I have sent a prescription for ibuprofen that you may use as needed for pain. You may also use acetaminophen (Tylenol), 2 extra-strength tablets up to 3 times a day. In addition to ibuprofen and acetaminophen I have sent prescriptions for cyclobenzaprine and morphine. These are medications that can make you sleepy and you should only use these medications when you are home and planning on resting. Please contact your regular doctor on Wednesday to set up a prompt follow up appointment. You have been given a work note for the next week. Return to the emergency room if significantly worse. Prescriptions: New ibuprofen 600 mg tablet 600 mg PO Q6H PRN (Reason: pain) Qty: 14 0RF cyclobenzaprine 10 mg tablet 10 mg PO TID PRN (Reason: muscle spasm) Qty: 14 0RF morphine 15 mg tablet 15 mg PO Q6H PRN (Reason: pain) Qty: 10 0RF Rx Instructions: Partial Fill upon patient request. No Action Nucala 100 mg/mL auto-injector 100 mg subcut Q4W Qty: 1 12RF nicotine (polacrilex) 2 mg gum PO fluticasone propionate 50 mcg/actuation spray,suspension intranasal ibuprofen 800 mg tablet 800 mg PO TID PRN (Reason: migraine) montelukast 10 mg tablet 10 mg PO DAILY cyclobenzaprine 10 mg tablet 10 mg PO BEDTIME PRN (Reason: muscle spasm) alcohol swabs Pads, Medicated topical albuterol sulfate 90 mcg/actuation HFA aerosol inhaler 2 puff inhalation QID ipratropium-albuterol 0.5 mg-3 mg(2.5 mg base)/3 mL solution for nebulization inhalation QID PRN cholecalciferol (vitamin D3) 50 mcg (2,000 unit) capsule 50 mcg PO DAILY fluticasone propion-salmeterol [Advair Diskus] 250-50 mcg/dose blister with device 1 inh inhalation BID 30 Days Qty: 60 5RF Referrals: Fern Schneider MD [Primary Care Provider] - (acute low back pain) Stand Alone Forms: Work/School Release Interventions: ED Discharge Assessment Last Done: 11/07/23 00:40 Discharge Date/Time: 11/07/23 00:40 Print Language: Icelandic
[2023-11-06] MEDS: Acetaminophen 325 MG TABLET 975 MG PO (21:49)
[2023-11-06] MEDS: Ketorolac Tromethamine 30 MG/ML VIAL IM (21:49)
[2023-11-06 23:03] VITALS: BP 126/77; PULSE 79; RESP 18; TEMP 36.5; O2SAT 99
[2023-11-07 00:36] VITALS: BP 140/79; PULSE 80; RESP 18; TEMP 36.7; O2SAT 98
[2023-11-07 00:40] VITALS: BP 140/79; PULSE 80; RESP 18; TEMP 36.7; O2SAT 98
== END 2023-11-07 00:40 | disposition home or self-care (01) ==
PROVIDERS: Emergency Provider Emergency Medicine; PCP Internal Medicine
DX: M54.41 Lumbago with sciatica, right side (principal)
CPT/HCPCS: 72100; 96372; 99284; J1885

== ENCOUNTER 2023-12-22 14:15 | Outpatient (AMB) | payer OTHER, SELFPAY ==
[2023-12-22 14:28] VITALS: BP 138/80; PULSE 101; O2SAT 99; BMI 28.5
--- NOTE | 2023-12-22 14:28 | A.OFFVIS_ITS ---
Vital Signs 12/22/23 14:28 Height 5 ft 2 in Weight 156 lb BMI 28.5 BP 138/80 Blood Pressure Location Lt brachial Position Sitting Pulse 101 H Pulse Source Pulse Oximeter Pulse Oximetry (%) 99 Oxygen Delivery Method Room Air Intake Visit Reasons: Asthma Intake Note: pt is here for follow up and states she is feeling she needed a treatment due to wheeze. [employer] Professor [employer] Required: No Allergies varenicline [From CHANTIX] Allergy (Unknown, Verified 12/22/23 14:51) UNKNOWN nicotine [From NICODERM CQ] Adverse Reaction (Mild, Verified 12/22/23 14:51) RASH Medication List - Last Reconciled 12/22/23 by Lianet Catalan MD albuterol sulfate 90 mcg/actuation 2 puffs inhalation QID alcohol swabs pad topical cholecalciferol (vitamin D3) 50 mcg PO DAILY cyclobenzaprine 10 mg PO TID PRN cyclobenzaprine 10 mg PO BEDTIME PRN fluticasone propion-salmeterol 250-50 mcg/dose (Advair Diskus) 1 inh inhalation BID 30 days fluticasone propionate 50 mcg/actuation intranasal ibuprofen 600 mg PO Q6H PRN ibuprofen 800 mg PO TID PRN ipratropium-albuterol 0.5 mg-3 mg(2.5 mg base)/3 mL mL inhalation QID PRN montelukast 10 mg PO DAILY morphine 15 mg PO Q6H PRN nicotine (polacrilex) mg PO Nucala (mepolizumab) 100 mg subcut Q4W NS Do you need a note to return to daycare/school/sports/work: No HPI HPI Asthma: Details: 53 YEARS OLD FEMALE IS HERE FOR HER 6 MONTHS FOLLOW-UP . SHE IS BEING TREATED FOR CHRONIC EOSINOPHILIC BRONCHIAL ASTHMA . SHE HAS DONE VERY WELL WITH THE INJECTIONS OF NUCALA 100 MG Q 4 WEEKS. STILL HAS MILD INTERMITTENT NASAL CONGESTION AND WHEEZING, FOR WHICH SHE USES ALBUTEROL HFA OR IF THAT DOES NOT HELP THEN SHE USES DUONEB UPDRAFT AT HOME. SHE IS NONSMOKER. SHE STILL HAS HER CAT AT HOME . [facility] Medical History (Updated 12/22/23 @ 15:12 by Lianet Catalan MD) Eosinophilia Allergic rhinitis Bronchial asthma Asthma Surgical History Hx of cholecystectomy Social History Alcohol intake: current Alcohol intake frequency: a few times a month Patient Tobacco Use Status: Former Tobacco user Sexual orientation: Straight/Heterosexual Gender identity: Female Review of Systems Const All systems reviewed & are unremarkable except as noted in HPI and below ENT Denies nasal congestion Card Denies chest pain, Denies leg edema and Denies dyspnea on exertion Resp Reports cough (mild , intermittent . ) and Denies dyspnea on exertion GI Reports no additional complaints Reports no additional complaints Musc Reports no additional complaints Neuro Reports no additional complaints Psych Reports no additional complaints Endo Reports no additional complaints Physical Exam Vital Signs: Last Vital Signs Pulse 101 H 12/22/23 14:28 BP 138/80 12/22/23 14:28 Pulse Ox 99 12/22/23 14:28 Oxygen Delivery Method Room Air 12/22/23 14:28 BMI result Body Mass Index 28.5 Const General: healthy appearing, comfortable, no acute distress, alert and awake Orientation/consciousness: patient oriented x3 HEENT Head: Yes normal to inspection General nose exam: No nasal polyps present and No nasal discharge present Face and sinus: Yes sinuses nontender Mouth: oropharynx normal Throat: Yes posterior oropharynx normal Eyes General: appearance normal, both eyes and all related structures Neck Neck: Yes normal visual inspection, Yes no lymphadenopathy, Yes trachea midline and Yes no JVD Thyroid: Thyroid normal Chest Chest palpation & inspection: normal inspection of the chest, normal palpation of entire chest wall and no tenderness Resp Other: Percussion note is resonant,, breath sounds are equal. No wheezes or rhonchi are heard today. Cardio Palpation: normal PMI Rate: regular rate Rhythm: regular rhythm Heart sounds: no gallops and no murmurs Peripheral pulses: Peripheral pulses 2+ throughout GI Palpation (GI): Soft to palpation, nontender, No hepatosplenomegaly present and no masses Auscultation: normal bowel sounds Back/Spine/Pelvis Thoracic/Lumbar Spine: thoracic and lumbar spine normal to inspection Skin General skin exam: no rashes or lesions noted Neuro General: patient oriented x3 and no focal motor deficits Cranial nerves: Yes CN's II-XII intact bilaterally Extrem General: Yes normal to inspection, Yes no clubbing, cyanosis or edema and Yes no calf tenderness Psych Appearance: grossly normal and well kempt Speech and movement: Normal speech and movement present Office Procedures Spirometry Testing Spirometry Comments: In office spirometry completed with results given to Dr Catalan. 96216- Spirometry Results Reviewed Results Reviewed: SPIROMETRY Assessment & Plan Assessment & Plan (1) Bronchial asthma: Comment: PATIENT HAS CHRONIC PERSISTENT BRONCHIAL ASTHMA, MOST LIKELY ALLERGIC, MAIN TRIGGER AT HOME IS CAT , HAS BEEN EXPLAINED MANY TIMES THAT SHE SHOULD TRY TO AVOID TOO MUCH CONTACT. WITH THE CAT, DOES NOT WANT TO GIVE UP. Code(s): J45.909 - Unspecified asthma, uncomplicated Category: Medical Plan: KEEP A DISTANCE FROM THE CAT MONTELUKAST 10 MG DAILY ALBUTEROL HFA 2 PUFFS Q 4-6 HOURS P.R.N. ADVAIR DISKUS 250-51 INHALATION B.I.D. IPRATROPIUM-ALBUTEROL, MAY CUT IT DOWN TO ONLY ONCE A DAY WHEN SYMPTOMS ARE UNDER CONTROL. IPRATROPIUM-ALBUTEROL SOLUTION IN THE NEBULIZER Q 6 HOURS P.R.N., IF ALBUTEROL HFA DOES NOT HELP. (2) Allergic rhinitis: Comment: WELL CONTROLLED , WITH MILD INTERMITTENT FLARE UPS. Code(s): J30.9 - Allergic rhinitis, unspecified Category: Medical Plan: CONTINUE MONTELUKAST 10 MG DAILY AND FLONASE - 51 INHALATION IN EACH NOSTRIL DAILY (3) Eosinophilia: Comment: SHE HAS HAD MILD EOSINOPHILIA, NEEDS TO BE CHECKED ,AGAIN IF. NUCALA HAS MADE A DIFFERENCE. Code(s): D72.10 - Eosinophilia, unspecified Category: Medical Plan CBC WITH DIFF ORDERED. I WOULD ALSO CHECK IGE LEVEL . Orders: Orders Immunoglobulin E Today J30.9 - Allergic rhinitis, unspecified, J45.909 - Unspecified asthma, uncomplicated AMB Spirometry Testing Today D72.10 - Eosinophilia, unspecified, J30.9 - Allergic rhinitis, unspecified Complete Blood Count Auto Diff Today D72.10 - Eosinophilia, unspecified, J30.9 - Allergic rhinitis, unspecified, J45.909 - Unspecified asthma, uncomplicated Coding Level of Care Code Est Pt Level 3 (93464) Diagnoses Bronchial asthma J45.909 Allergic rhinitis J30.9 Eosinophilia D72.10 CPT Codes Spirometry - CPT: 21948- Spirometry ([id number])
== END 2023-12-22 15:14 | disposition home or self-care (01) ==
PROVIDERS: PCP Internal Medicine; Visit Provider Internal Medicine
DX: J45.909 Unspecified asthma, uncomplicated (principal); J30.9 Allergic rhinitis, unspecified; D72.10 Eosinophilia, unspecified
CPT/HCPCS: 94010; 99213

== ENCOUNTER → 2023-12-22 14:15 | Outpatient (BNVA) | payer OTHER, SELFPAY | PROVIDERS: PCP Internal Medicine; Visit Provider Internal Medicine | DX: J45.909 Unspecified asthma, uncomplicated (principal); D72.10 Eosinophilia, unspecified | CPT/HCPCS: 94010; 99212 ==

== ENCOUNTER 2023-12-23 10:50 | Outpatient (REF) | payer OTHER, SELFPAY ==
--- NOTE | ~2023-12-23 | US_ITS ---
EXAMINATION: US PELVIS CLINICAL INFORMATION: Follow-up left ovarian cyst. COMPARISON: Pelvic ultrasound 06/12/2022 TECHNIQUE: Ultrasound of the pelvis is performed using both transabdominal and transvaginal transducers along with Doppler. Transvaginal imaging is performed due to inadequate visualization transabdominally. FINDINGS: UTERUS: The uterus is anteverted and measures 6.3 x 2.4 x 3.4 cm. The double wall endometrial thickness is 1.0 mm. The uterus is smooth in contour and has normal myometrial echogenicity. No visible fibroid. ADNEXA: Both ovaries are visualized. There is normal color flow to the adnexa. There is no ovarian torsion. here is no pelvic ascites or fluid collection. Right ovary measures 2.8 x 1.7 x 2.0 cm for a volume of 5.0 mL. A few cysts are present the largest measuring 1.2 cm. Previously this larger cyst measured 1.4 x 1.1 x 1.1 cm. A single 0.7 cm cyst and a 4 mm area of calcification. The previously seen right ovarian cyst has not resolved. US/US pelvic and transvaginal IMPRESSION: 1. Normal-appearing uterus. 2. Benign-appearing right ovarian cysts. No further follow-up should be necessary. Electronically signed by: Claude Schilling MD 01/04/2024 04:14 PM EDT
== END 2023-12-23 10:51 | disposition home or self-care (01) ==
LOC: HO.US 10:50
PROVIDERS: PCP Internal Medicine; Visit Provider Internal Medicine
DX: N83.201 Unspecified ovarian cyst, right side (principal)
CPT/HCPCS: 76830; 76856

== ENCOUNTER 2024-02-07 12:35 | Outpatient (REF) | payer OTHER, SELFPAY ==
[2024-02-07 13:26] LABS: MANUAL DIFF FLAG NO
[2024-02-07 13:35] LABS: Basophils Percent Auto 0.5 % (0-2); Eosinophils Absolute Auto 0.1 X10*3/uL (0.0-0.4); Eosinophils Percent Auto 1.3 % (0-4); Hematocrit 45.2 % (37.0-47.0); Hemoglobin 15.3 g/dl (12.0-16.0); Imm Gran Abs Auto 0.02 X10*3/uL (0.00-0.03); Imm Gran Pct Auto 0.3 % (0.0-0.4); Lymphocytes Absolute Auto 2.2 X10*3/uL (1.2-4.9); Lymphocytes Percent Auto 29.6 % (20-40); Mean Corpuscular HGB Conc 33.8 g/dl (31.0-35.0); Mean Corpuscular Hemoglobin 30.1 pg (27.0-33.0); Mean Platelet Volume 9.1 fL (9.4-12.3); Monocytes Absolute Auto 0.6 X10*3/uL (0.1-1.2); Monocytes Percent Auto 7.6 % (2-11); Neutrophils Absolute Auto 4.5 x10*3/uL (2.0-8.3); Neutrophils Percent Auto 60.7 % (45-73); Platelet Count 327 X10*3/uL (160-400); Red Blood Count 5.08 X10*6/uL (4.20-5.50); Red Cell Distribution Width 11.8 % (11.0-16.0); White Blood Count 7.5 X10*3/uL (4.8-10.8)
[2024-02-07 13:50] LABS: Estimated Average Glucose 94 mg/dL; Hemoglobin A1C 117.7754 umol/L; Hemoglobin A1c % 4.9 % (<6.0); Total Hemoglobin (HGBA1C) 3867.4345 umol/L
[2024-02-07 14:10] LABS: Alanine Aminotransferase 26 U/L (0-31); Albumin Level 4.1 g/dL (3.5-5.0); Alkaline Phosphatase 66 U/L (39-117); Anion Gap 12 (12-20); Aspartate Amino Transferase 15 U/L (5-31); Bilirubin Total 0.4 mg/dL (0.0-1.0); Blood Urea Nitrogen 13 mg/dL (9-16); Carbon Dioxide 27 mmol/L (22-29); Chloride 103 mmol/L (96-108); Cholesterol 215 mg/dL (<200); Estimated Glomerular Filt Rate > 60; Glucose Random 71 mg/dL (60-115); HDL Cholesterol 64 mg/dL (>40); LDL Cholesterol Calculated 109 mg/dL (<100); Potassium 3.8 mmol/L (3.3-5.1); Sodium 138 mmol/L (135-145); Triglycerides 212 mg/dL (<150)
[2024-02-07 14:14] LABS: Erythrocyte Sedimentation Rate 3 MM/HR (0-20)
[2024-02-07 14:18] LABS: Vitamin D 25-OH Total 54.3 ng/mL (>30)
[2024-02-07 14:32] LABS: Reflex LDLD? No
[2024-02-08 04:16] LABS: Syphilis Screen Nonreactive (Nonreactive)
[2024-02-08 13:47] LABS: Immunoglobulin E 561 kU/L (<OR=114)
[2024-02-09 11:14] LABS: Anti Nuclear Antibody Screen NEGATIVE (NEGATIVE)
[2024-02-10 01:07] LABS: TS Negative Control Passed; TS Panel A 0; TS Panel B 3; TS Positive Control Passed; TSpotTB Negative (Negative)
== END 2024-02-07 12:36 | disposition home or self-care (01) ==
LOC: HO.HHCL 12:35
PROVIDERS: Referring Provider Internal Medicine; Visit Provider Internal Medicine
DX: I10 Essential (primary) hypertension (principal); N83.201 Unspecified ovarian cyst, right side; N95.1 Menopausal and female climacteric states; B35.3 Tinea pedis; R61 Generalized hyperhidrosis; J30.9 Allergic rhinitis, unspecified; J45.909 Unspecified asthma, uncomplicated; D72.10 Eosinophilia, unspecified
CPT/HCPCS: 36415; 80053; 80061; 82306; 82785; 83036; 84443; 85025; 85652; 86038; 86481; 86780

== ENCOUNTER 2024-03-17 13:05 | Outpatient (REF) | payer OTHER, SELFPAY ==
[2024-03-17 15:12] LABS: Bacterial Vaginosis PCR POSITIVE (Negative); Candida Group PCR NOT DETECTED (Not Detect); Candida glab krusei PCR NOT DETECTED (Not Detect); Trichomonas vaginalis PCR NOT DETECTED (Not Detect)
[2024-03-17 15:48] LABS: CT PCR NOT DETECTED (Not Detect.); NG PCR NOT DETECTED (Not Detect.)
[2024-04-06 13:39] LABS: HPV 16,18/45 See PAP report
== END 2024-03-17 13:06 | disposition home or self-care (01) ==
LOC: HO.HHCLNP 13:05
PROVIDERS: Visit Provider Internal Medicine
DX: Z01.419 Encounter for gynecological examination (general) (routine) without abnormal findings (principal); N83.201 Unspecified ovarian cyst, right side
CPT/HCPCS: 0352U; 87491; 87591; 87624; 88175

== ENCOUNTER 2024-06-21 13:28 | Outpatient (AMB) | payer OTHER, SELFPAY ==
[2024-06-21 13:35] VITALS: BP 128/72; PULSE 91; O2SAT 98; BMI 27.6
--- NOTE | 2024-06-21 13:35 | MHC.OFFVIS ---
Vital Signs 06/21/24 13:35 Height 5 ft 2 in Weight 151 lb 0.266 oz BMI 27.6 BP 128/72 Blood Pressure Location Lt brachial Position Sitting Pulse 91 Pulse Source Pulse Oximeter Pulse Oximetry (%) 98 Oxygen Delivery Method Room Air Intake Visit Reasons: Asthma Intake Note: pt is here for follow up and states she is feeling good today Freight Tallier Required: No Allergies varenicline [From CHANTIX] Allergy (Unknown, Verified 06/21/24 13:39) UNKNOWN nicotine [From NICODERM CQ] Adverse Reaction (Mild, Verified 06/21/24 13:39) RASH Medication List - Last Reconciled 06/21/24 by Lianet Catalan MD albuterol sulfate 90 mcg/actuation 2 puffs inhalation QID alcohol swabs pad topical cholecalciferol (vitamin D3) 50 mcg PO DAILY cyclobenzaprine 10 mg PO TID PRN fluticasone propion-salmeterol 250-50 mcg/dose (Advair Diskus) 1 inh inhalation BID 30 days fluticasone propionate 50 mcg/actuation intranasal ibuprofen 600 mg PO Q6H PRN ibuprofen 800 mg PO TID PRN ipratropium-albuterol 0.5 mg-3 mg(2.5 mg base)/3 mL mL inhalation QID PRN montelukast 10 mg PO DAILY nicotine (polacrilex) mg PO Nucala (mepolizumab) 100 mg subcut Q4W NS Do you need a note to return to daycare/school/sports/work: No HPI HPI Asthma: Details: 54 YEARS OLD FEMALE WITH LONGSTANDING HISTORY OF ALLERGIC RHINITIS AND BRONCHIAL ASTHMA. COMES FOR FOLLOW-UP AFTER 6 MONTHS. ON HER CURRENT TREATMENT REGIMEN SHE IS DOING VERY WELL. ESPECIALLY SINCE SHE IS ON NUCALA INJECTIONS ONCE A MONTH HER SYMPTOMS HAVE MUCH IMPROVED, SHE USES ALBUTEROL INHALER ONCE IN A WHILE, AND IF THAT DOES NOT HELP THEN SHE WILL USE IPRATROPIUM-ALBUTEROL SOLUTION IN THE NEBULIZER. BUT THIS IS ONLY OCCASIONALLY AND MUCH LESS THAN BEFORE. SHE CONTINUES TO USE ADVAIR, AND MONTELUKAST ON A REGULAR BASIS. SHE DOES NOT SMOKE ANYMORE AND CONTINUES TO USE NICOTINE GUM P.R.N. IF SHE HAS AN URGE. [facility], [facility] Medical History Eosinophilia Allergic rhinitis Bronchial asthma Asthma Surgical History Hx of cholecystectomy Social History Alcohol intake: current Alcohol intake frequency: a few times a month Patient Tobacco Use Status: Former Tobacco user Sexual orientation: Straight/Heterosexual Gender identity: Female Review of Systems Const All systems reviewed & are unremarkable except as noted in HPI and below ENT Denies nasal congestion Card Denies chest pain, Denies leg edema and Denies dyspnea on exertion Resp Reports cough (mild , intermittent . ) and Denies dyspnea on exertion GI Reports no additional complaints Reports no additional complaints Musc Reports no additional complaints Neuro Reports no additional complaints Psych Reports no additional complaints Endo Reports no additional complaints Physical Exam Vital Signs: Last Vital Signs Pulse 91 06/21/24 13:35 BP 128/72 06/21/24 13:35 Pulse Ox 98 06/21/24 13:35 Oxygen Delivery Method Room Air 06/21/24 13:35 BMI result Body Mass Index 27.6 Const General: healthy appearing, comfortable, no acute distress, alert and awake Orientation/consciousness: patient oriented x3 HEENT Head: Yes normal to inspection General nose exam: No nasal polyps present and No nasal discharge present Face and sinus: Yes sinuses nontender Mouth: oropharynx normal Throat: Yes posterior oropharynx normal Eyes General: appearance normal, both eyes and all related structures Neck Neck: Yes normal visual inspection, Yes no lymphadenopathy, Yes trachea midline and Yes no JVD Thyroid: Thyroid normal Chest Chest palpation & inspection: normal inspection of the chest, normal palpation of entire chest wall and no tenderness Resp Other: Percussion note is resonant,, breath sounds are equal. No wheezes or rhonchi are heard today. Cardio Palpation: normal PMI Rate: regular rate Rhythm: regular rhythm Heart sounds: no gallops and no murmurs Peripheral pulses: Peripheral pulses 2+ throughout GI Palpation (GI): Soft to palpation, nontender, No hepatosplenomegaly present and no masses Auscultation: normal bowel sounds Back/Spine/Pelvis Thoracic/Lumbar Spine: thoracic and lumbar spine normal to inspection Skin General skin exam: no rashes or lesions noted Neuro General: patient oriented x3 and no focal motor deficits Cranial nerves: Yes CN's II-XII intact bilaterally Extrem General: Yes normal to inspection, Yes no clubbing, cyanosis or edema and Yes no calf tenderness Psych Appearance: grossly normal and well kempt Speech and movement: Normal speech and movement present Office Procedures Spirometry Testing Spirometry Comments: In office spirometry performed with results given to Dr Catalan. 93815- Spirometry Results Reviewed Results Reviewed: SPIROMETRY FVC=80 % FEV1= 63 % FEV1/FVC= 63 FEF 25-75 = 51 % C/W MODERATELY SEVERE OBSTRUCTIVE DISORDER. COMPARED TO THE SPIROMETRY RESULTS IN DECEMBER 2023 THE FLOW VOLUMES ARE DEFINITELY DECREASED. Assessment & Plan Assessment & Plan (1) Bronchial asthma: Comment: PATIENT HAS CHRONIC PERSISTENT BRONCHIAL ASTHMA, MOST LIKELY ALLERGIC, MAIN TRIGGER AT HOME IS CAT , HAS BEEN EXPLAINED MANY TIMES THAT SHE SHOULD TRY TO AVOID TOO MUCH CONTACT. WITH THE CAT, DOES NOT WANT TO GIVE UP. ACCORDING TO THE SPIROMETRY TODAY THE OBSTRUCTIVE COMPONENT IS NOT WELL CONTROLLED. PATIENT ADMITTED THAT SHE IS NOT USING ADVAIR TWICE A DAY REGULARLY, . AND THAT COULD BE THE REASON Code(s): J45.909 - Unspecified asthma, uncomplicated Category: Medical Plan: ADVISED TO USE ADVAIR 250-51 INHALATION B.I.D. REGULARLY AND DO NOT MISS. ALBUTEROL 2 PUFFS Q 6 HOURS P.R.N.. ALTERNATIVELY MAY USE IPRATROPIUM-ALBUTEROL SOLUTION IN THE NEBULIZER P.R.N.. (2) Allergic rhinitis: Comment: WELL CONTROLLED , WITH MILD INTERMITTENT FLARE UPS. Code(s): J30.9 - Allergic rhinitis, unspecified Category: Medical Plan: CONTINUE NUCALA 100 MG SUBQ Q.4 WEEKS MONTELUKAST 10 MG DAILY. FLONASE 2 SPRAY EACH NOSTRIL DAILY (3) Eosinophilia: Comment: SHE HAS HAD MILD EOSINOPHILIA, NEEDS TO BE CHECKED ,AGAIN IF. NUCALA HAS MADE A DIFFERENCE. Code(s): D72.10 - Eosinophilia, unspecified Category: Medical Plan: PATIENT HAS HAD EOSINOPHILIC BRONCHIAL ASTHMA, MUCH IMPROVED AFTER STARTING ON NUCALA. Plan CONTINUE NUCALA 100 MG SUBQ Q 4 WEEKS. Orders: Orders AMB Spirometry Testing Today J45.909 - Unspecified asthma, uncomplicated Coding Level of Care Code Est Pt Level 3 (40708) Diagnoses Bronchial asthma J45.909 Allergic rhinitis J30.9 Eosinophilia D72.10 CPT Codes Spirometry - CPT: 36873- Spirometry ([id number])
--- OUTSIDE RECORDS SUMMARY | 2024-06-21 13:48 | XMS_ITS | Encounter Summary ---
Author Organization [employer] Address [address] [place] [address] Care Team Providers Care Electronic Equipment Repairer Name Role Phone Fern Schneider MD Primary Care Provider + Encounter Details Date Type Department Care Team (Late st Contact Info) Description 06/01/2022 Orders Only [facility] MEDICINE [address] [place], [place] [phone] Geena Wiley LPN Social History Tobacco Use Types Packs/Day Years Used Date Smoking Tobacco: Never Assessed Comments Unknown Sex and Gender Information Value Date Recorded Sex Assigned at Female 03/02/2022 10:14 AM EDT Legal Sex Female 10:14 AM EDT Gender Identity Female 03/02/2022 10:14 AM EDT Sexual Orientation Straight 03/02/2022 10 :14 AM EDT documented as of this encounter Plan of Treatment Upcoming Encounters Date Type Department Care Team (Late st Contact Info) Description 06/29/2024 1:00 PM EST Office Visit [facility] [address] [place], [place] [phone] Tracy Macdonald [address] [place], [place] [phone] documented as of this encounter Procedures Procedure Name Priority Date/Time Associated Diagnosis Comments US PELVIS TRANSVAGINAL Routine 06/12/2022 3:24 PM EST documented in this encounter Results * US Pelvis Transvaginal (06/12/2022 3:24 PM EST) Anatomical Region Laterality Modality Pelvis Ultrasound 06/12/2022 3:24 PM EST Narrative 06/15/2022 5:29 PM EST ? [facility] ?[address] ?[place] [address] ? Ultrasound Report ? Signed ? Patient: Wang,Iris N ?MR#: [id number] ? : 1970 ?Acct:[id number] ? Age/Sex: 52 / F ?ADM Date: 06/12/22 ? Loc: HO.US ? Attending Dr: Fern Schneider MD ? Ordering Physician: Fern Schneider MD ?? Date of Service: 06/12/22 ?? Procedure(s): US pelvic and transvaginal ?? Accession Number(s): [id number] ? cc: Fern Schneider MD ? EXAMINATION: ? US PELVIS ? CLINICAL INFORMATION: ? Postmenopausal bleeding ? COMPARISON: ?? 07/18/2020 ? TECHNIQUE: ?? Ultrasound of the pelvis is performed using both transabdominal and ?? transvaginal transducers along with Doppler. Transvaginal imaging is ?? performed due to inadequate visualization transabdominally. ? FINDINGS: ?? Uterus: ?? The uterus is anteverted and measures 6.1 x 2.9 x 3.0 cm. ? The double wall endometrial thickness is 0.4 mm. ? The uterus is smooth in contour and has normal myometrial echogenicity. ? Anterior uterine wall vascular calcification is noted. ? Adnexa: ?? Both ovaries are visualized. There is normal color flow to the adnexa. ?? There is no ovarian torsion. ??There is no pelvic ascites or fluid ?? collection. ? Right ovary measures 2.7 x 1.8 x 1.9 cm. 1.4 x 1.1 x 1.1 cm ?? intraovarian cyst ? Left ovary measures 2.6 x 1.7 x 1.1 cm. ? US/US pelvic and transvaginal ?? IMPRESSION: ?? 1. ??Endometrial thickness is within normal limits for a postmenopausal ?? patient. ?? 2. ??Right intraovarian 1.4 cm cyst. Recommend follow-up ultrasound in ?? 6-12 weeks. ? Dictated By: ?Alis Snider MD ? Signed By: ?<Electronically signed by Alis Snider MD in OV> ? 06/15/226 ? DD/ 23 ? TD/TT: ? Hog Trader: ? Procedure Note Donothoustoninterpreter, Image - 06/15/2022 [place] [address] Ultrasound Report Signed Patient: Mecca Wang NMR#: [id number] : 1970Acct:[id number] Age/Sex: 52 / FADM Date: 06/12/22 Loc: HO.US Attending Dr: Fern Schneider MD Ordering Physician: Fern Schneider MD Date of Service: 06/12/22 Procedure(s): US pelvic and transvaginal Accession Number(s): [id number] cc: Fern Schneider MD EXAMINATION: US PELVIS CLINICAL INFORMATION: Postmenopausal bleeding COMPARISON: 07/18/2020 TECHNIQUE: Ultrasound of the pelvis is performed using both transabdominal and transvaginal transducers along with Doppler. Transvaginal imaging is performed due to inadequate visualization transabdominally. FINDINGS: Uterus: The uterus is anteverted and measures 6.1 x 2.9 x 3.0 cm. The double wall endometrial thickness is 0.4 mm. The uterus is smooth in contour and has normal myometrial echogenicity. Anterior uterine wall vascular calcification is noted. Adnexa: Both ovaries are visualized. There is normal color flow to the adnexa. There is no ovarian torsion. There is no pelvic ascites or fluid collection. Right ovary measures 2.7 x 1.8 x 1.9 cm. 1.4 x 1.1 x 1.1 cm intraovarian cyst Left ovary measures 2.6 x 1.7 x 1.1 cm. US/US pelvic and transvaginal IMPRESSION: 1. Endometrial thickness is within normal limits for a postmenopausal patient. 2. Right intraovarian 1.4 cm cyst. Recommend follow-up ultrasound in 6-12 weeks. Dictated By: Alis Snider MD Signed By: <Electronically signed by Alis Snider MD in OV> 06/15/22 1726 DD/ 1524 TD/TT: Hog Trader: [facility] External Provider IMG US PROCEDURES Edited Result - Final documented in this encounter Visit Diagnoses Not on filedocumented in this encounter Care Teams Electronic Equipment Repairer Relationship Specialty Start Date End Date Fern Schneider MD [address] [place] [phone] PCP - General Family Medicine 06/13/20 documented as of this encounter
--- OUTSIDE RECORDS SUMMARY | 2024-06-21 13:48 | XMS_ITS | Encounter Summary ---
Author Organization [employer] Address [address] [place] [address] Care Team Providers Care Foot Specialist Name Role Phone Fern Schneider MD Primary Care Provider + Encounter Details Date Type Department Care Team (Late st Contact Info) Description 05/06/2022 Orders Only [facility] PEDS [address] [place], [place] [phone] Liz Frausto LPN Social History Tobacco Use Types Packs/Day [...] 06/29/2024 1:00 PM EST Office Visit [facility] [address] [place] [address] Juvencio Macdonaldine [address] [place], [place] [phone] documented as of this encounter Visit Diagnoses Not on filedocumented in this encounter Care Teams Foot Specialist Relationship Specialty Start Date End Date Fern Schneider MD [address] [place] [phone] PCP - General Family Medicine 06/13/20 documented as of this encounter
--- OUTSIDE RECORDS SUMMARY | 2024-06-21 13:48 | XMS_ITS | Encounter Summary ---
Author Organization [employer] Address [address] [place] [address] Care Team Providers Care Registered Medical Transcriptionist Name Role Phone Fern Schneider MD Primary Care Provider + Encounter Details Date Type Department Care Team (Late Contact Info) Description 10/13/2022 Orders Only [facility] PEDS [address] [place], [place] [phone] Liz Frausto LPN Social History Tobacco Use Types Packs/Day Years Used Date Smoking Tobacco: Never Smokeless Tobacco: Never Alcohol Use Standard Drinks/Week Comments Yes 0 (1 standard drink = 0.6 oz pur e alcohol) oca Depression Answer Date Recorded Patient Health Questionnaire-2 Score 0 08/18/2022 Comments Unknown Sex and Gender Information Value [...] Description 06/29/2024 1:00 PM EST Office Visit [facility] [address] [place], [place] [phone] Tracy Macdonald [address] [place], [place] [phone] documented as of this encounter Procedures Procedure Name Priority Date/Time Associated Diagnosis Comments XR CHEST 2 VIEWS Routine 10/30/2022 4:39 PM EDT documented in this encounter Results * XR Chest 2 Views (10/30/2022 4:39 PM EDT) Anatomical Region Laterality Modality Chest Radiographic Melony ging 10/30/2022 4:39 PM EDT Narrative 11/16/2022 10:50 AM EDT ? [facility] ?[address] ?[place] [address] ?XRay Report ? Signed ? Patient: Wang,Iris N ?MR#: [id number] ? : 1970 ?Acct:[id number] ? Age/Sex: 52 / F ?ADM Date: 10/30/22 ? Loc: HO.XRAY ? Attending Dr: Breana MILLS ? Ordering Physician: Breana Bates ?? Date of Service: 10/30/22 ?? Procedure(s): XR chest 2V ?? Accession Number(s): [id number] ? cc: Breana Bates ? EXAMINATION: ?? XR CHEST ? CLINICAL INFORMATION: ?? 6 and coughing for 3 to 4 weeks, subacute, ? COMPARISON: ?? 02/20/2021, 03/05/2019 ? TECHNIQUE: ?? 2 views of the chest were obtained. ? FINDINGS: ?? There is no gross pneumothorax. Heart size is normal. ? Mild rightward curvature of the thoracic spine with degenerative ?? changes. Surgical clips right upper quadrant. ? No pleural effusion. No focal consolidation to to pneumonia. ? XR/XR chest 2V ?? IMPRESSION: ?? No evidence of pneumonia or pleural effusion. ? Dictated By: ?Lilliam Siegel MD ? Signed By: ?<Electronically signed by Lilliam Siegel MD in OV> ? 11/16/22 1048 ? DD/ 1639 ? TD/TT: ? Salesforce Developer: ? Procedure Note Jacques Dudley - 11/16/[address] [address] XRay Report Signed Patient: Mecca Wang NMR#: [id number] : 1970Acct:[id number] Age/Sex: 52 / FADM Date: 10/30/22 Loc: TINA Attending Dr: Breana Bates SOLAR INSTALLER TECHNICIAN Ordering Physician: Breana Bates Date of Service: 10/30/22 Procedure(s): XR chest 2V Accession Number(s): [id number] cc: Breana Bates EXAMINATION: XR CHEST CLINICAL INFORMATION: 6 and coughing for 3 to 4 weeks, subacute, COMPARISON: 02/20/2021, 03/05/2019 TECHNIQUE: 2 views of the chest were obtained. FINDINGS: There is no gross pneumothorax. Heart size is normal. Mild rightward curvature of the thoracic spine with degenerative changes. Surgical clips right upper quadrant. No pleural effusion. No focal consolidation to to pneumonia. XR/XR chest 2V IMPRESSION: No evidence of pneumonia or pleural effusion. Dictated By: Lilliam Siegel MD Signed By: <Electronically signed by Lilliam Siegel MD in OV> 11/16/22 1048 DD/ 1639 TD/TT: Salesforce Developer: [facility] External Provider IMG XR PROCEDURES Final Result documented in this encounter Visit Diagnoses Not on filedocumented in this encounter Care Teams Registered Medical Transcriptionist Relationship Specialty Start Date End Date Fern Schneider MD [address] [place] [phone] PCP - General Family Medicine 06/13/20 documented as of this encounter
--- OUTSIDE RECORDS SUMMARY | 2024-06-21 13:48 | XMS_ITS | Clinical Summary ---
Author Organization [employer] Address [address] [facility] [address] [place] [address] Care Team Providers Care Founder President And Ceo Name Role Phone Kyung Ch MD Primary Care Provider + Allergies Active Allergy Reactions Criticality Noted Date Comments Nicotine Dermatitis 01/05/2017 Only with Nicotine patch, no allergy to other nicotine containing products Varenicline 06/01/2011 Other reaction(s): nausea, face red & itchy Medications aluminum chloride (Drysol) 20 % external solution Apply topically at bedtime. 35 mL 1 08/10/19 24 2024 Active clotrimazole-be tamethasone (Lotrisone) cream APPLY 1 GRAM TOPICALLY TO THE AFFECTED AREA(S) TWICE DAILY DIRECTED FOR 28 DAYS 30 g 1 11/17/19 24 Active montelukast (Singulair) 10 MG tablet TAKE 1 TABLET BY MOUTH EVERY DAY IN THE EVENING 90 tablet 1 11/18/19 24 Active mometasone (Nasonex) 50 MCG/ACT nasal spray INSTILL 2 SPRAYS IN EACH NOSTRIL ONCE DAILY IN THE MORNING 17 g 3 01/21/20 24 Active Fluticasone-Luis meterol 250-50 MCG/ACT aerosol powder INHALE 1 PUFF BY MOUTH TWICE DAILY RINSE MOUTH AFTER USING. 12/08/19 24 Active Nucala 100 MG/ML solution auto-injector Inject under the skin every 4 (four) weeks. Active morphine (MSIR) 15 MG tablet Take 15 mg by mouth every 6 (six) hours if needed. 11/07/19 24 Active ipratropium-alb uterol (Duo-Neb) 0.5-2.5 mg/3 mL nebulizer solution Take 3 mL by nebulization every 6 (six) hours. 180 mL 11 01/29/20 24 2024 Active glycopyrrolate (Robinul) 1 MG tabletIndicatio ns:Hyperhidrosi s Take 1 tablet (1 mg) by mouth 3 times daily. 90 tablet 11 02/18/20 24 2024 Active moisturizing mouth (Biotene Oral Dry Mouth) solution Take 1 spray by mouth if needed (dry mouth). 44.3 mL 03/19/20 24 Active cyclobenzaprine (Flexeril) 10 MG tabletIndicatio ns:Muscle spasm TAKE 1 TABLET BY MOUTH AT BEDTIME NEEDED FOR MUSCLE SPASMS 30 tablet 2 04/28/20 24 Active Ventolin HFA 108 (90 Base) MCG/ACT inhalerIndicati ons:Moderate persistent extrinsic asthma without complication INHALE 2 PUFFS BY MOUTH FOUR TIMES DAILY 18 g 3 05/11/19 25 Active nicotine polacrilex (Nicorette) 2 MG gum CHEW 1 PIECE OF GUM EVERY 2 HOURS NEEDED FOR SMOKING CESSATION 100 each 1 05/12/19 25 Active CombiPatch 0.05-0.14 MG/DAYIndicatio ns:Menopausal flushing APPLY 1 PATCH TO SKIN TWICE A WEEK 8 patch 2 06/01/19 25 Active omeprazole (PriLOSEC) [address] capsuleIndicati ons:Gastroesoph ageal reflux disease without esophagitis TAKE 1 CAPSULE BY MOUTH EVERY DAY IN THE MORNING 90 capsule 1 06/08/19 25 Active omeprazole (PriLOSEC) [address] capsuleIndicati ons:Gastroesoph ageal reflux disease without esophagitis TAKE 1 CAPSULE BY MOUTH DAILY IN THE MORNING 90 capsule 1 05/05/19 24 2024 Discontinued estradiol-noret hindrone (CombiPatch) 0.05-0.14 MG/DAYIndicatio ns:Menopausal flushing APPLY 1 PATCH TO SKIN TWICE A WEEK 8 patch 02/07/20 24 2024 Discontinued Active Problems Problem Noted Date Diagnosed Date Bronchitis 05/05/2024 Assessment & Plan (05/08/2024 12:16 PM EST): Drink plenty of fluids and rest CXR ordered 5 days of prednisone and z pack Patient will be contacted with results Leukoplakia of oral cavity 03/17/2024 Assessment & Plan (03/20/2024 8:45 AM EST): I gave her information to schedule dental appointment [facility] for further evaluation. Advised to cut down Glycopyrrolate to once per day and do a lavage with Biotene oral, re-consult prn if Sx do not improve within a few weeks. Encounter for cervical Pap smear with pelvic exa m 03/17/2024 Assessment & Plan (03/17/2024 12:25 PM EST): Pelvic exam today wnl FU pap smear results/HPV/STI testing and will call back PRN positive results or FU in 3 months Pt feels safe at home no concern for DV/STDs Counseled regarding STI prevention If today's pap smear/co testing is normal next one will be due in 5 years. Moderate persistent asthma without complication 02/07/2024 Assessment & Plan (02/07/2024 12:30 PM EDT): - controlled, declined influenza IZ - continue Duo-neb PRN + Advair BID + Singulair + Nucala and f/u with pulmonology - reminded her not to smoke Chronic bilateral thoracic back pain 02/07/2024 Assessment & Plan (02/07/2024 12:31 PM EDT): - pt has OA of the spine - advised to continue weight reduction and will also refer to PT Tinea pedis of both feet 10/18/2023 Assessment & Plan (12/08/2023 7:38 PM EDT): Rx Lotrimin cream to use bid x 2-3w. Keep feet clean and dry, can use baking soda on shoes daily. Arthralgia 10/18/2023 Assessment & Plan (10/18/2023 10:48 AM EDT): On ankles and knee, it could be oA vs auto immune/psoriasis? Order labs and fu w me May need PT or intraarticular inj Hyperhidrosis 08/10/2023 Assessment & Plan (08/10/2023 2:20 PM EDT): - Pt is using topical agents, most likely aluminium chloride lotions? I will rx Drysol and refer to derm for fu, may need anticholinergic meds. Screening mammogram for breast cancer 12/29/2022 Chronic cough 12/16/2022 Assessment & Plan (12/29/2022 2:30 PM EDT): Asthma seems to be controlled and PND is partially improved on Fluticasone spray. Refer to ENT to evaluate laryngeal area, specially given hx smoking. Continue Advair, Flonase and omeprazole. FU w me in 4m Primary hypertension 11/20/2022 Assessment & Plan (03/17/2024 12:25 PM EST): Controlled. Continue off medications. Counseled re low salt diet/increase moderate physical activity. Check home BP BIW and prn CP/GALEANO/CABA Non smoking patient. Follow up in 3 months. Assessment & Plan (02/07/2024 12:27 PM EDT): Uncontrolled, she has been off Losartan for more than 3 months Counseled re low salt diet/increase moderate physical activity. Check home BP BIW and prn CP/GALEANO/CABA Non smoking patient. Order labs and f/u with me in 2 months Assessment & Plan (12/08/2023 7:40 PM EDT): Controlled. Compliant w/meds Continue losartan 50mg/d Counseled re low salt diet/increase moderate physical activity. Check home BP BIW and prn CP/GALEANO/CABA Non smoking patient. FU in 6m Assessment & Plan (08/10/2023 9:44 AM EDT): - uncontrolled. Pt has not been taking medication for a few weeks. - refill for Losartan sent to pharmacy - order labs - Continue Losartan same dose - Counseled re low salt diet/increase moderate physical activity. - Check home BP BIW and prn CP/GALEANO/CABA - f/u in 4-5 weeks Assessment & Plan (12/29/2022 2:32 PM EDT): Borderline controlled, unclear about compliance Continue Lisinopril for now, check BP in 3-4 m with BP readings log Counseled re low salt diet/increase moderate physical activity. Check home BP BIW and prn CP/GALEANO/CABA Non smoking patient (x 6-8m). Assessment & Plan (11/20/2022 12:16 PM EDT): Uncontrolled today, could be related to prednisone or sudafed use DC sudafed, start nasonex as above continue lisinopril 5mg and FU with me in 1 month Counseled re low salt diet/increase moderate physical activity. Check home BP BIW and prn CP/GALEANO/CABA Non smoking patient. Postnasal drip 11/20/2022 Assessment & Plan (11/20/2022 12:16 PM EDT): DC flonase and start nasonex Use nasal saline Postcoital bleeding 11/20/2022 Assessment & Plan (11/20/2022 12:16 PM EDT): Resolved, reconsult PRN currently treated for UTI Gastroesophageal reflux disease without esophagi tis 08/18/2022 Assessment & Plan (08/18/2022 10:57 AM EDT): Recently quit smoking. Use omeprazole x2 months and then PRN. Smoker within last 12 months 08/18/2022 Assessment & Plan (08/10/2023 9:45 AM EDT): - pt is continued to be abstinent - counseled on importance of not smoking due to asthma and is using HRT patch Assessment & Plan (08/18/2022 10:57 AM EDT): Currently using nicotine gums, allergic to nicotine patch Cyst of right ovary 08/18/2022 Assessment & Plan (03/17/2024 12:25 PM EST): Stable for over 2 years. No need for additional follow up. Assessment & Plan (12/09/2023 3:41 PM EDT): Pelvic US rs for 12/22. Infor provided to patient. Assessment & Plan (12/08/2023 7:41 PM EDT): - Never had f/u for pelvic ultrasound - I gave her the info to schedule US. Assessment & Plan (08/10/2023 9:44 AM EDT): - Never had f/u for pelvic ultrasound - will order pelvic ultrasound Assessment & Plan (12/29/2022 2:39 PM EDT): Hasn't rs pelvic US, she has the order with her. I told her to call and rs appt. Assessment & Plan (11/20/2022 12:15 PM EDT): Pelvic US needs to be rescheduled FU with me next month Assessment & Plan (08/18/2022 10:56 AM EDT): FU pelvic US prior to next appointment. Perimenopausal symptoms 08/14/2022 Assessment & Plan (12/09/2023 3:47 PM EDT): She has worsening arthralgias, vasomotor changes, weight gain, tiredness. FU in 3-4w when she's back to HRT Advised to get labs done, mainly due to weight gain Visual impairment 05/20/2022 Postmenopausal bleeding 05/20/2022 Assessment & Plan (12/09/2023 3:40 PM EDT): None since last year, didn't fu with pelvic US Pelvic US rs for 12/23/23 at 11am, info provided to patient. FU with pelvic US results Assessment & Plan (05/20/2022 3:07 PM EST): Had slightly thick endometrium (6mm) On pelvic US 2y ago, never fu for it.Order pelvic US and fu w me in 1m. Moderate persistent asthma with exacerbation Assessment & Plan (01/29/2024 1:02 PM EDT): Give prednisone 50mg in clinic before departure Then continue prednisone 40mg x 5 days Use nebulizer every 2-3 hours with Duonebs, refills ordered to the pharmacy ER precautions for ongoing symptoms or worsening symptoms despite prednisone and 2-3 hour frequent neb admin Assessment & Plan (12/09/2023 3:39 PM EDT): Ro acute exacerbation/viral? Advised to use albuterol q4h x 2d then prn Restarted Advair bid today, will continue Nucala and Singulair FU 3-4w Assessment & Plan (12/09/2023 2:36 PM EDT): >>ASSESSMENT AND PLAN FOR EXTRINSIC ASTHMA WRITTEN ON 05/20/2022 3:04 PM BY KYUNG CH MD Doing well, received from Cov[facility] Continue Nucala, advair and fu with pulmonology. Recommended to continue off smoking, use nicotine gum. Assessment & Plan (12/09/2023 2:36 PM EDT): >>ASSESSMENT AND PLAN FOR EXTRINSIC ASTHMA WRITTEN ON 08/18/2022 11:00 AM BY LINDA Chaidez. Continue Advair, NUCALA, and ventolin Congratulated her for quitting smoking. Menopausal flushing 08/31/2016 Assessment & Plan (02/07/2024 12:15 PM EDT): - advised to restart HRT and f/u with me in 2 months - reminded her not to start smoking again Assessment & Plan (12/09/2023 3:45 PM EDT): - She's off HRT patch. - Advised to get back on hormonal patch and fu with me in 3w - She's an ex- smoker - PAP and mammogram are up to date Assessment & Plan (08/10/2023 2:16 PM EDT): - seems to be better on HRT patch - will schedule pap smear with me, continue on HRT patch for now. - She's an ex- smoker - mammograph is up to date Assessment & Plan (12/29/2022 2:39 PM EDT): Improving on combo patch, will continue for 6more month Needs repeated PAP on 2023. I will order mammogram She has order to rs pelvic US due to hx ovarian cyst. Patient is a non smoker Assessment & Plan (11/20/2022 12:17 PM EDT): significantly improved with combipatch Pt is an ex-smoker, quit more than 1 year ago. Continue combipatch Needs FU Pelvic US, see below. FU with me in 3 months Assessment & Plan (08/18/2022 11:03 AM EDT): Pt has significant menopausal symptoms. She quit smoking a few months ago and seems to be doing well on nicotine gum. She has failed OTC meds and SNRIs. Start Combipatch to change every week and fu with me in 3 months. Discussed with pt the importance of staying abstinent from smoking Will attempt tight control of HTN Will repeat pelvic US Assessment & Plan (05/20/2022 3:12 PM EST): Failed Effexor and OTC meds. Counseled to stay away form smoking, use nicotine gum, encouraged out door exercise, dress in layers. Order CV RF and pelvic US to determine risk of HRT. 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 Hypercholesterolemia 07/24/2016 Assessment & Plan (12/09/2023 3:42 PM EDT): Advised to get labs done prior to next appt. She's not on meds Recommended moderate amount of exercise and increase consumption of fruit, vegetables, fish and high fiber foods. Should decrease consumption of highly saturated fats or trans fats. Vitamin D deficiency 07/24/2016 Overweight 08/01/2015 Assessment & Plan (02/10/2024 3:09 PM EDT): Discussed re weight reduction options including exercise, life style modifications, diet and referral to invoicing specialist. Recommended to decrease soda and sugary beverage consumption, increase protein intake with meals (at least 1 portion of protein with each meal) to assist with satiety, increase dietary fiber Recommended at least 150 min/week of moderate intensity exercise. Will f/u with labs and consider medication treatments including Metformin or Topamax Assessment & Plan (12/09/2023 3:41 PM EDT): Discussed re weight reduction options including exercise, life style modifications, diet and meds. FU with labs in 3-4w Recommended to decrease soda and sugary beverage consumption, increase protein intake with meals (at least 1 portion of protein with each meal) to assist with satiety, increase dietary fiber Recommended at least 150 min/week of moderate intensity exercise. Resolved Problems Problem Noted Date Diagnosed Date Resolved Date Elevated blood pressure reading 05/20/2022 03/17/2024 Assessment & Plan (11/22/2022 4:58 PM EDT): Has dx HTN. See below Assessment & Plan (08/18/2022 11:01 AM EDT): Pt seems to have new onset hypertension. Congratulated her for quitting smoking. Start lisinopril 5 mg and check BP twice her per week. Order BMP prior to next appointment Counseled re low salt diet/increase moderate physical activity. Check home BP BIW and prn CP/GALEANO/CABA Assessment & Plan (05/20/2022 3:05 PM EST): For few years npw, ro HTN Order labs to assess CV Risk factors and fu w me in 1m Counseled re low salt diet/increase moderate physical activity. Check home BP BIW and prn CP/GALEANO/CABA Quit smoking 1-2m ago. Encounters Date Type Department Care Team Description 06/08/2024 Refill [facility] [address] [place] [address] Kyung Ch MD Gastroesophageal reflux disease without esophagitis; Chronic rhinitis 06/01/2024 Refill [facility] [address] [place] [address] Kyung Ch MD Menopausal flushing 05/12/2024 Refill [facility] [address] [place], [place] [phone] Kyung Ch MD 05/11/2024 Refill [facility] [address] [place] [address] Kyung Ch MD Moderate persistent extrinsic asthma without complication 05/05/2024 2:40 PM EST Office Visit [facility] [address] [place], [place] [phone] Lisha Sanabria MD Bronchitis (Primary Dx) 04/28/2024 Refill [facility] [address] [place], [place] [phone] Kyung Ch MD Muscle spasm from Last 3 Months Immunizations Name Administration Dates Next Due Hep B, adult 04/01/2018,08/28/2016,07/24/2016 Pneumococcal Polysaccharide PPSV23 07/05/2017 Tdap 08/01/2015 Social History Tobacco Use Types Packs/Day Years Used Date Smoking Tobacco: Former Cigarettes Passive Smoke Exposure: Past Smokeless Tobacco: Never Tobacco Cessation:Counseling Given: Not Answered Alcohol Use Standard Drinks/Week Comments Yes 0 (1 standard drink = 0.6 oz pur e alcohol) oca Housing Stability Answer Date Recorded What is your housing situation today? I have ajith rod 10/18/[address] you li ve. Do you have problems with any of the following? None of the above 10/18/2023 Food Insecurity Answer Date Recorded Within the past 12 months, y ou worried that your food would run out before you got money to buy more: Never True 10/18/2023 Within the past 12 months,th e food you bought just didn't last and you didn't have enough money to get more: Never True Transportation Answer Date Recorded In the past 12 months, has l ack of transportation kept you from medical appts, meetings, work or from getting things needed for daily living? No 10/18/2023 Utilities Answer Date Recorded In the past 12 months, has t he electric, gas, oil or water company threatened to shut off services in your home? No 10/18/2023 Depression Answer Date Recorded Patient Health Questionnaire-2 Score 0 10/18/2023 Internet Access Answer Date Recorded Internet Access Q1 No 12/31/2023 Internet Access Q2 I do not want or need it 12/03 Comments No Sex and Gender Information Value Date Recorded Sex Assigned at Female 03/02/2022 10:14 AM EDT Legal Sex Female 10:14 AM EDT Gender Identity Female 03/02/2022 10:14 AM EDT Sexual Orientation Straight 03/02/2022 10 :14 AM EDT Last Filed Vital Signs Vital Sign Reading Time Taken Comments Blood Pressure 167/88 05/05/2024 2:43 PM EST Pulse 102 05/05/2024 2:43 PM EST Temperature 36.2 ??C (97.2 ??F) 05/05/2024 2:43 PM ES T Respiratory Rate 18 05/05/2024 2:43 PM EST Oxygen Saturation 98% 05/05/2024 2:43 PM EST Inhaled Oxygen Concentration - - Weight 68.6 kg (151 lb 3.2 oz) 05/05/2024 2:43 P M EST Height 156.2 cm (5' 1.5 ) 03/17/2024 11:51 AM ES T Body Mass Index 28.11 03/17/2024 11:51 AM EST Plan of Treatment Upcoming Encounters Date Type Department Care Team (Late st Contact Info) Description 06/29/2024 1:00 PM EST Office Visit [facility] [address] [place] [phone] Tracy Macdonald [address] [place] [phone] Health Maintenance Due Date Last Done Comments CT Colonography 1969 Colonoscopy 1969 Colorectal Cancer Screening 1970 FIT DNA/Cologuard 1969 FIT 1970 FOBT 1970 HIV Screening 1970 Sigmoidoscopy 1970 Alcohol/Substance Use Screening 1981 Hepatitis C Screening 1987 Pneumococcal Vaccine: 50+ Years (2 of 2 - PCV) 07/05/2018 07/05/2017 Zoster Vaccines (1 of 2) 2019 COVID-19 Vaccine ( season) 2024 06/30/2021, 01/16/2021 Influenza Vaccine (#1) 2024 Mammogram 01/27/2024 01/26/2023 Depression Screening 10/17/2024 10/18/2023, 10/18/19 24 SDOH Screening 10/17/2024 10/18/2023 Tobacco Screening 03/17/2025 03/17/2024 Cervical Cancer Screening 07/05/2025 HPV/Cotest 07/05/2025 07/05/2020, 0308/2020, 07/05/2020, Additional history exists DTaP/Tdap/Td Vaccines (2 - Td or Tdap) 07/31/2025 08/01/2015 Lipid Panel 02/06/2029 02/07/2024, 04/25/2020 Pap Smear 03/17/2029 03/17/2024, 07/05/2020 RSV Patients and Patients Aged 60 years or older (1 - 1-dose 75+ series) 2044 Hepatitis B Vaccines Completed 04/01/2018, 08/28/2016, 07/24/2016 HIB Vaccines Aged Out No longer eligi ble based on patient's age to complete this topic HPV Vaccines Aged Out No longer eligi ble based on patient's age to complete this topic Hepatitis A Vaccines Aged Out No long er eligible based on patient's age to complete this topic IPV Vaccines Aged Out No longer eligi ble based on patient's age to complete this topic Meningococcal Vaccine Aged Out No nerissa eve eligible based on patient's age to complete this topic RSV under 20 months Aged Out No longe r eligible based on patient's age to complete this topic Rotavirus Vaccines Aged Out No longer eligible based on patient's age to complete this topic Procedures Procedure Name Priority Date/Time Associated Diagnosis Comments POCT INFLUENZA B (ID NOW RAPID MOLECULAR) Routine 05/05/2024 3:12 PM EST Bronchitis POCT INFLUENZA A (ID NOW RAPID MOLECULAR) Routine 05/05/2024 3:12 PM EST Bronchitis POCT RAPID COVID ANTIGEN Routine 05/05/2024 3:12 PM EST Bronchitis PAP SMEAR Routine 03/17/2024 12:00 AM EST Encounter for cervical Pap smear with pelvic exam LIPID PANEL WITH REFLEX TO DIRECT LDL Routine 02/07/2024 12:42 PM EDT Primary hypertension BI MAMMOGRAM SCREENING TOMOSYNTHESIS BILATERAL Routine 01/26/2023 12:00 PM EDT HM PAP/HPV Routine 07/05/2020 from Last 3 Months or Most Recently Relevant to Health Maintenance Results * Influenza B (ID NOW Rapid Molecular) (05/05/2024 3:12 PM EST) [facility] Influenza B Negative Negative, Indeterminate [facility] Swab 05/05/2024 3:12 PM EST Lisha Gutiérrez MD POINT OF CARE TEST EN TER/EDIT ORDERABLES Final Result Performing Organization Address City/[facility]/ZIP Co de Phone Number [facility] [address] [place] [phone] * Influenza A (ID NOW Rapid Molecular) (05/05/2024 3:12 PM EST) [facility] Influenza A Negative Negative, Indeterminate [facility] Swab 05/05/2024 3:12 PM EST Lisha Gutiérrez MD POINT OF CARE TEST EN TER/EDIT ORDERABLES Final Result Performing Organization Address [facility] Co de Phone Number [facility] [address] [place] [phone] * POCT Rapid COVID Ag (05/05/2024 3:12 PM EST) [facility] Rapid COVID Ag Negative [facility] Swab 05/05/2024 3:12 PM EST us Lisha Gutiérrez MD POINT OF CARE TEST EN TER/EDIT ORDERABLES Final Result [facility] [address] [place] [phone] * Pap Smear (03/17/2024 12:00 AM EST) Swab Cervical swab / Unknown 03/17/2024 03/17/2024 1:50 PM EST Narrative [facility] - 04/05/2024 7:49 AM EST ----- ------- Name: Mecca Wang ? Age/Sex: 53/F ? : 1970 Unit#: [id number] ?? Attend Dr: Kyung Ch MD ?Re03/17/24 ?Status: DEP REF ? Location: HO.HHCLNP ? Disch: ? ----- ------- SPEC : [id number] ?RECD: 03/17/24-1349 ? STATUS: ??SOUT ? REQ NUM: [id number] ? BETZAIDA: 03/17/24-0000 ? SUBM DR: Kyung Ch MD ? ENTERED: ??03/17/24-1354 ?SP TYPE: Pap Smr ?OTHR DR: ? ORDERED: ??Pap Smear ? Interpretation ?? Satisfactory for evaluation. ?? Negative for intraepithelial lesion or malignancy. ?? No endocervical cells seen. ?? Coccobacilli consistent with shift in vaginal cinthia. ? HPV High Risk: ??Negative ? HPV Genotyping 16: ??Negative ?? HPV Genotyping 18: ??Negative ?Clinical Information LMP: Postmenopausal Previous PAP test: 2020, WNL ? Material Received ?? ThinPrep-Cervical ----- ------- Signed (signature on file) SHERIE Lane (ASCP) 04/05/24 0749 ? ----- ------- ? END OF REPORT ? us Kyung Ch MD LAB CYTOLOGY ORDERABLES Final Result Performing Organization Address [facility]/State/ZIP Co de Phone Number [facility] [address] [place] [phone] * (ABNORMAL) Lipid Panel with Reflex to Direct LDL (02/07/2024 12:42 PM EDT) Triglycerides 212(H) <150 mg/dL [facility] Comment:Desirable Triglyceri de: less than 150 mg/dLBorderline High Triglyceride 150-199 mg/dLHigh Triglyceride: 200-499 mg/dLVery High Triglyceride: greater than or equal to 5OO mg/dL Cholesterol 215(H) <200 mg/dL [facility] Comment:Desirable Cholestero l: less than 200 mg/dLBorderline High Cholesterol: 200-239 mg/dLHigh Cholesterol: greater than 239 mg/dL LDL Cholesterol Calculated 109(H) <100 mg/dL [facility] Comment:Desirable LDL: less than 100 mg/dLNear Optimal/Above Optimal LDL: 110- 129 mg/dLBorderline High LDL: 130-159 mg/dLHigh LDL: 160-189 mg/dLVery High LDL: greater than or equal to 190 mg/dL HDL Cholesterol 64 >40 mg/dL [facility] Comment:Desirable HDL: great er than 40 mg/dL Note: This HDL assay may give artificially low results in patients with liver disease. Blood 02/07/2024 12:4 2 PM EDT 02/07/2024 1:13 PM EDT Kyung Ch MD LAB BLOOD ORDERABLES Fin al Result [facility] [address] [place] [phone] * BI Mammogram Screening Tomosynthesis Bilateral (01/26/2023 12:00 PM EDT) Anatomical Region Laterality Modality Breast Bilateral Mammography 01/26/2023 12:0 0 PM EDT Narrative 02/21/2023 7:42 AM EDT ? [facility] [place] ? [address] ?[place] [id number] ? Mammography Report ? Signed ? Patient: Wang,Iris N ?MR#: [id number] ? : 1970 ?Acct:[id number] ? Age/Sex: 52 / F ?ADM Date: 01/26/23 ? Loc: HO.MAMMO ? Attending Dr: Kyung Ch MD ? Ordering Physician: Kyung Ch MD ?Results: 1Ne ?? gative ? Date of Service: 01/26/23 ?Follow Up: 1 Year From Orig ?? inal Mammogram ? Procedure(s): MM tomosynthesis screening BI ?? Accession Number(s): [id number] ? cc: Kyung Ch MD ? EXAMINATION: ?? MM SCREENING DIGITAL BREAST TOMOSYNTHESIS, BILATERAL ? CLINICAL INFORMATION: ? Screening. Asymptomatic. ? COMPARISON: ?? Mammography: This study is compared with prior exams dating back to ?? 2016. ? TECHNIQUE: ?? Digital breast tomosynthesis is performed in both the craniocaudal and ?? mediolateral oblique views along with computer-aided detection (CAD). ?? Synthesized 2D images are generated from the tomosynthesis. ? FINDINGS: ?? There are scattered areas of fibroglandular density (ACR BI-RADS breast ?? composition Category b). ? There are no significant masses, abnormal calcifications, or other ?? abnormalities. ? MM/MM tomosynthesis screening BI ?? IMPRESSION: ?? No mammographic evidence of malignancy. ? ASSESSMENT: ? BI-RADS BI-RADS 1 - Negative ? RECOMMENDATION: ?? Routine annual mammography screening. ? 1 year F/U ? This examination should not preclude the clinical evaluation of a ?? suspicious palpable abnormality. ? This patient's information was entered into a reminder system with a ?? target due date for their next mammogram. ? Dictated By: ?Mary Alice Walls MD ? Signed By: ?<Electronically signed by Mary Alice Walls MD in OV> ? 10/22/23 0738 ? DD/ 1200 ? TD/TT: ? Nursing Program Director: ? Procedure Note Jacques Dudley - [facility]/2023 [facility] [address] [place] [address] Mammography Report Signed Patient: Mecca Wang [facility]#: [id number] : 1970Acct:[id number] Age/Sex: 52 / FADM Date: 01/26/23 Loc: [facility] Attending Dr: Kyung Ch MD Ordering Physician: Kyung Chesults: 1Ne gative Date of Service: 01/26/23Follow Up: 1 Year From Orig inal Mammogram Procedure(s): MM tomosynthesis screening BI Accession Number(s): [id number] cc: Kyung Ch MD EXAMINATION: MM SCREENING DIGITAL BREAST TOMOSYNTHESIS, BILATERAL CLINICAL INFORMATION: Screening. Asymptomatic. COMPARISON: Mammography: This study is compared with prior exams dating back to 2016. TECHNIQUE: Digital breast tomosynthesis is performed in both the craniocaudal and mediolateral oblique views along with computer-aided detection (CAD). Synthesized 2D images are generated from the tomosynthesis. FINDINGS: There are scattered areas of fibroglandular density (ACR BI-RADS breast composition Category b). There are no significant masses, abnormal calcifications, or other abnormalities. MM/MM tomosynthesis screening BI IMPRESSION: No mammographic evidence of malignancy. ASSESSMENT: BI-RADS BI-RADS 1 - Negative RECOMMENDATION: Routine annual mammography screening. 1 year F/U This examination should not preclude the clinical evaluation of a suspicious palpable abnormality. This patient's information was entered into a reminder system with a target due date for their next mammogram. Dictated By: Mary Alice Walls MD Signed By: <Electronically signed by Mary Alice Walls MD in OV> 02/21/23 0738 DD/ 1200 TD/TT: Nursing Program Director: us Kyung Ch MD IMG BI PROCEDURES Final Result * Hm Pap Smear (07/05/2020) Pap Negative for intraephithelial lesion or malignancy Negative for intraephithelial lesion or malignancy, Other [facility] HPV Undetected [facility] 07/05/2020 us hSira Maher HEALTH MAINTENANCE Final Result [facility] [address] [place] [address] [phone] from Last 3 Months or Most Recently Relevant to Health Maintenance Insurance [address] [place] [address] [facility] PARTIAL (MEDICAID) Care Teams Founder President And Ceo Relationship Specialty Start Date End Date Kyung Ch MD [address] [place] [phone] PCP - General Family Medicine 06/13/20
--- OUTSIDE RECORDS SUMMARY | 2024-06-21 13:48 | XMS_ITS | Encounter Summary ---
Author Organization [employer] [facility] Address [address] [facility] 7t [place] [address] Care Team Providers Care Superintendent Greens Name Role Phone Fern Schneider MD Primary Care Provider + Encounter Details Date Type Department Care Team (Latest Contact Info) Description 07/26/2018 Abstract [facility] CONVERSIONS Dental, Provider, DDS Social History Tobacco Use Types Packs/Day Years [...] Description 06/29/2024 1:00 PM EST Office Visit [facility] D[facility]AL [address] [place], [place] [phone] Tracy Macdonald [address] [place], [place] [phone] documented as of this encounter Visit Diagnoses Not on filedocumented in this encounter Care Teams Superintendent Greens Relationship Specialty Start Date End Date Fern Schneider MD [address] [place] [phone] PCP - General Family Medicine 06/13/20 documented as of this encounter
--- OUTSIDE RECORDS SUMMARY | 2024-06-21 13:48 | XMS_ITS | Encounter Summary ---
Author Organization [employer] Address [address] [facility] 7t [place] [address] Care Team Providers Care Cigarette Tipper Name Role Phone Fern Schneider MD Primary Care Provider + Reason for Visit * Reason Onset Date Comments triage 04/29/2022 Encounter Details Date Type Department Care Team ([facility] st Contact Info) Description 04/29/2022 Telephone [facility] MEDICINE [address] [place] [address] Fern Schneider MD [address] [place] [address] triage Social History Tobacco Use Types Packs/Day Years Used Date Smoking Tobacco: Never Assessed Comments Unknown Sex and Gender Information Value Date Recorded Sex Assigned at Female 03/02/2022 10:14 AM EDT Legal Sex Female 10:14 AM EDT Gender Identity Female 03/02/2022 10:14 AM EDT Sexual Orientation Straight 03/02/2022 10 :14 AM EDT documented as of this encounter Miscellaneous Notes * Telephone Encounter - Esther Calderon RN - 04/29/2022 2:33 PM EST Triage call Pt reports for 2 days, productive cough, producing greenish mucous, chills but, neg forfever, body aches. Neg home Covid tests x2. Reviewed home care with Pt and advised to come to WIC if needed . Pt agreed with disposition and plan and didn't want to come to WIC will just rest at home. Protocol Used: Cough (Adult) Protocol-Based Disposition: Home Care Positive Triage Question: * Cough with cold symptoms (e.g., runny nose, postnasal drip, throat clearing) * All higher-acuity triage questions were negative Care Advice Discussed: * Reassurance and Education - Cough * Cough Medicines * Cough Syrup With Dextromethorphan * Cough Syrup With Dextromethorphan - Extra Notes and Warnings * Coughing Spells * Prevent Dehydration * Humidifier * Fever Medicines * Fever Medicines - Extra Notes and Warnings * Expected Course * Reasons To Call Back - Difficulty breathing - Cough lasts more than 3 weeks - Fever lasts more than 3 days - You become worse * Telephone Encounter - Errol Goodrich - 04/29/2022 12:01 PM EST Symptoms: Cough, Body Aches Outcome: Schedule an urgent appointment (within 1 hour) or talk to a nurse or provider soon Reason: Wheezing The caller accepted this outcome documented in this encounter Plan of Treatment Upcoming Encounters Date Type Department Care Team (Late st Contact Info) Description 06/29/2024 1:00 PM EST Office Visit [facility] DENTAL [address] [place] [address] [phone] Tracy Macdonald [address] [place], [place] [phone] documented as of this encounter Visit Diagnoses Not on filedocumented in this encounter Care Teams Cigarette Tipper Relationship Specialty Start Date End Date Fern Schneider MD [address] [place] [phone] PCP - General Family Medicine 06/13/20 documented as of this encounter
--- OUTSIDE RECORDS SUMMARY | 2024-06-21 13:48 | XMS_ITS | Encounter Summary ---
Author Organization [employer] Address [address] [facility] 7t [place] [address] Care Team Providers Care Protective Officer Name Role Phone Fern Schneider MD Primary Care Provider + Reason for Visit * Reason Comments Med Refill Encounter Details Date Type Department Care Team ([facility] st Contact Info) Description 01/05/2024 Refill [facility] MEDICINE [address] [place], [place] [phone] Fern Schneider MD [address] [place] [address] Nicotine dependence, unspecified, uncomplicated Social History Tobacco Use Types Packs/Day Years Used Date Smoking Tobacco: Former Cigarettes Passive Smoke Exposure: Past Smokeless Tobacco: Never Alcohol Use Standard Drinks/Week Comments Yes 0 (1 standard drink = 0.6 oz pur e alcohol) oca Housing Stability Answer Date Recorded What is your housing situation today? I have ajith velasco 10/18/[address] you li [...] Description 06/29/2024 1:00 PM EST Office Visit [facility] DENTAL [address] [place] [phone] Tracy Macdonald [address] [place] [address] documented as of this encounter Visit Diagnoses Diagnosis Nicotine dependence, unspecified, uncomplicated documented in this encounter Care Teams Protective Officer Relationship Specialty Start Date End Date Fern Schneider MD [address] [place] [address] PCP - General Family Medicine 06/13/20 documented as of this encounter
--- OUTSIDE RECORDS SUMMARY | 2024-06-21 13:48 | XMS_ITS | Encounter Summary ---
Author Organization [employer] Address [address] [facility] 7t [place] [address] Care Team Providers Care Malware Analyst Name Role Phone Fern Schneider MD Primary Care Provider + Encounter Details Date Type Department Care Team (Late st Contact Info) Description 06/30/2022 Orders Only [facility] PEDS [address] [place], [place] [phone] Liz Frausto LPN Social History Tobacco Use [...] Description 06/29/2024 1:00 PM EST Office Visit [facility] D[facility]AL [address] [place] [address] Juvencio Macdonaldine [address] [place], [place] [phone] documented as of this encounter Visit Diagnoses Not on filedocumented in this encounter Care Teams Malware Analyst Relationship Specialty Start Date End Date Fern Schneider MD [address] [place] [phone] PCP - General Family Medicine 06/13/20 documented as of this encounter
--- OUTSIDE RECORDS SUMMARY | 2024-06-21 13:48 | XMS_ITS | Encounter Summary ---
Author Organization [employer] Address [address] [facility] 7t [place] [address] Care Team Providers Care Special Inspector Name Role Phone Fren Schneider MD Primary Care Provider + Reason for Visit * Reason Comments Med Refill Encounter Details Date Type Department Care Team ([facility] st Contact Info) Description 06/08/[address] [facility] MEDICINE [address] [place], [place] [phone] Fern Schneider MD 230 [place] [address] Gastroesophageal reflux disease without esophagitis; Chronic rhinitis Social History Tobacco Use Types Packs/Day Years [...] Description 06/29/2024 1:00 PM EST Office Visit [facility] DENTAL [address] [place], [place] [phone] Tracy Macdonald 91 [place], [place] [phone] documented as of this encounter Visit Diagnoses Diagnosis Gastroesophageal reflux disease without esophagitis Esophageal reflux Chronic rhinitis documented in this encounter Care Teams Special Inspector Relationship Specialty Start Date End Date Fern Schneider MD [address] [place] [phone] PCP - General Family Medicine 06/13/20 documented as of this encounter
--- OUTSIDE RECORDS SUMMARY | 2024-06-21 13:48 | XMS_ITS | Encounter Summary ---
Author Organization [employer] Address [address] [facility] 7t [place] [address] Care Team Providers Care Catcher Filter Tip Name Role Phone Fern Schneider MD Primary Care Provider + Reason for Visit * Reason Comments Med Refill Encounter Details Date Type Department Care Team ([facility] st Contact Info) Description 01/21/2024 Refill [facility] MEDICINE 230 [place], [place] [phone] Fern Schneider MD 230 [place] [address] COVID-19; Moderate persistent asthma without complication Social History Tobacco Use Types Packs/Day Years [...] Description 06/29/2024 1:00 PM EST Office Visit [facility] DENTAL 91 [place], [place] [phone] Tracy Macdonald 91 [place], [place] [phone] documented as of this encounter Visit Diagnoses Diagnosis COVID-19 Moderate persistent asthma without complication documented in this encounter Care Teams Catcher Filter Tip Relationship Specialty Start Date End Date Fern Schneider MD [address] [place] [address] PCP - General Family Medicine 06/13/20 documented as of this encounter
--- OUTSIDE RECORDS SUMMARY | 2024-06-21 13:48 | XMS_ITS | Encounter Summary ---
Author Organization [employer] Address [address] [facility] [address] 7t [place] [address] Care Team Providers Care Industrial Recruiter Name Role Phone Fern Schneider MD Primary Care Provider + Reason for Visit * Reason Comments Med Refill Encounter Details Date Type Department Care Team ([facility] st Contact Info) Description 06/01/2024 Refill [facility] MEDICINE [address] [place], [place] [phone] Fern Schneider MD 230 [place], [place] [phone] Menopausal flushing Social History Tobacco Use Types Packs/Day Years [...] Description 06/29/2024 1:00 PM EST Office Visit [facility] DENTAL [address] [place] [address] [phone] Tracy Macdonald 91 [place], [place] [phone] documented as of this encounter Visit Diagnoses Diagnosis Menopausal flushing Symptomatic menopausal or female climacteric states documented in this encounter Care Teams Industrial Recruiter Relationship Specialty Start Date End Date Fern Schneider MD [address] [place] [phone] PCP - General Family Medicine 06/13/20 documented as of this encounter
--- OUTSIDE RECORDS SUMMARY | 2024-06-21 13:48 | XMS_ITS | Encounter Summary ---
Author Organization [employer] Address [address] [facility] 7t [place] [address] Care Team Providers Care Cooler Service Supervisor Name Role Phone Fenr Schneider MD Primary Care Provider + Reason for Visit * Reason Comments Med Refill Encounter Details Date Type Department Care Team ([facility] st Contact Info) Description 12/21/[address] [facility] MEDICINE [address] [place], [place] [phone] Fern Schneider MD 230 [place] [address] Smoker Social History Tobacco Use Types Packs/Day Years [...] Recorded Patient Health Questionnaire-2 Score 0 10/18/2023 Comments No Sex and Gender Information Value [...] Description 06/29/2024 1:00 PM EST Office Visit [facility] DENTAL [address] [place] [address] [phone] Tracy Macdonald 91 [place], [place] [phone] documented as of this encounter Visit Diagnoses Diagnosis Smoker Tobacco use disorder documented in this encounter Care Teams Cooler Service Supervisor Relationship Specialty Start Date End Date Fern Schneider MD [address] [place] [phone] PCP - General Family Medicine 06/13/20 documented as of this encounter
--- OUTSIDE RECORDS SUMMARY | 2024-06-21 13:48 | XMS_ITS | Encounter Summary ---
Author Organization [employer] Address [address] [facility] 7t [place] [address] Care Team Providers Care Marketing Director Name Role Phone Fern Schneider MD Primary Care Provider + Reason for Visit * Reason Onset Date Comments Nurse Triage 12/31/2023 Encounter Details Date Type Department Care Team ([facility] st Contact Info) Description 12/31/2023 Telephone [facility] MEDICINE 230 [place] [address] Fern Schneider MD 230 [place] [address] Nurse Triage Social History Tobacco Use Types Packs/Day Years [...] encounter Miscellaneous Notes * Telephone Encounter - Britney Anderson RN - 12/31/2023 2:16 PM EDT Called pt. She states she needs a refill on her nicorette gum. Pt has been more successful she states with smoking cessation and It keeps me from smoking so I need it . Pt has been prescribed this in past by PCP a little under a year ago. Pt. Resumed smoking and Nicorette gum was Dc'd. Pt has beenbuying Nicorette gum again and wants Rx. Refilled. Wants it prior to the weekend so that she has it for the Holiday weekend. Will send request for refill to a provider on Red team. Please advise. Protocol Used: Smoking - Tobacco Use and Problems (Adult) Protocol-Based Disposition: Video visit not offered Positive Triage Question: * Requesting prescription medication to help quit smoking * All higher-acuity triage questions were negative Care Advice Discussed: * Quitting Smoking * Three Steps for Quitting Smoking * STEP 1 - Get Ready * STEP 2 - Get Medicine * STEP 3 - Get Help * Nicotine Gum * Telephone Encounter - Gideon Cramer - 12/31/2023 2:14 PM EDT TC from pt requesting medication refill. Medications needing refill : nicotine polacrilex (Nicorette) 2 MG gum To be sent to: [facility] - [place], [place] - [address] documented in this encounter Plan of Treatment Upcoming Encounters Date Type Department Care Team (Late st Contact Info) Description 06/29/2024 1:00 PM EST Office Visit [facility] DENTAL 91 [place], [place] [phone] Tracy Macdonald 91 [place], [place] [phone] documented as of this encounter Visit Diagnoses Not on filedocumented in this encounter Care Teams Marketing Director Relationship Specialty Start Date End Date Fern Schneider MD [address] [place] [address] PCP - General Family Medicine 06/13/20 documented as of this encounter
== END 2024-06-21 14:11 | disposition home or self-care (01) ==
PROVIDERS: PCP Internal Medicine; Visit Provider Internal Medicine
DX: J45.909 Unspecified asthma, uncomplicated (principal); J30.9 Allergic rhinitis, unspecified; D72.10 Eosinophilia, unspecified
CPT/HCPCS: 94010; 99213

== ENCOUNTER → 2024-06-21 13:28 | Outpatient (BNVA) | payer OTHER, SELFPAY | PROVIDERS: PCP Internal Medicine; Visit Provider Internal Medicine | DX: J45.909 Unspecified asthma, uncomplicated (principal); D72.10 Eosinophilia, unspecified | CPT/HCPCS: 94010; 99212 ==

== ENCOUNTER 2024-12-19 14:03 | Outpatient (AMB) | payer OTHER, SELFPAY ==
[2024-12-19 14:16] VITALS: BP 108/64; PULSE 97; O2SAT 98; BMI 27.8
--- NOTE | 2024-12-19 14:16 | MHC.OFFVIS ---
Vital Signs 12/19/24 14:16 Height 5 ft 2 in Weight 152 lb BMI 27.8 BP 108/64 Blood Pressure Location Lt brachial Position Sitting Pulse 97 Pulse Source Pulse Oximeter Pulse Oximetry (%) 98 Oxygen Delivery Method Room Air Intake Visit Reasons: Asthma Intake Note: pt is here for follow up and is feeling good Solid Waste Facility Operator Required: No Allergies varenicline (From CHANTIX) Allergy (Unknown, Verified 12/19/24 14:27) UNKNOWN nicotine (From NICODERM CQ) Adverse Reaction (Mild, Verified 12/19/24 14:27) RASH Medication List - Last Reconciled 12/19/24 by Lianet Catalan MD albuterol sulfate 90 mcg/actuation 2 puffs inhalation QID alcohol swabs pad topical cholecalciferol (vitamin D3) 50 mcg PO DAILY cyclobenzaprine 10 mg PO TID PRN estradiol-norethindrone acet 0.05-0.14 mg/24 hr (CombiPatch) 1 patch topical 2XW fluticasone propion-salmeterol 250-50 mcg/dose (Advair Diskus) 1 inh inhalation BID 30 days fluticasone propionate 50 mcg/actuation intranasal ibuprofen 600 mg PO Q6H PRN ibuprofen 800 mg PO TID PRN ipratropium-albuterol 0.5 mg-3 mg(2.5 mg base)/3 mL mL inhalation QID PRN losartan 50 mg PO QAM montelukast 10 mg PO DAILY nicotine (polacrilex) mg PO Nucala (mepolizumab) 100 mg subcut Q4W NS Do you need a note to return to daycare/school/sports/work: No HPI HPI Asthma: Details: YASMIN IS HERE FOR 6 MONTHS FOLLOW-UP. SHE HAS CHRONIC ALLERGIC BRONCHIAL ASTHMA, WITH SOME DEGREE OF ALLERGIC RHINITIS. SHE IS ON BIOLOGIC TREATMENT WITH NUCALA INJECTION 100 MG SUBQ ONCE A MONTH. IN ADDITION SHE IS ON MONTELUKAST 10 MG DAILY AND ADVAIR 250-50 1 INHALATION B.I.D. SHE IS REMAINING VERY STABLE AND SYMPTOMS ARE WELL CONTROLLED. SHE STILL HAS A CAT AT HOME BUT DOES NOT COME NEAR HER. SHE SAY SHE HARDLY NEEDS TO USE THE NEBULIZER OR RESCUE INHALER. SHE DOES NOT SMOKE ANYMORE. [facility] Medical History Eosinophilia Allergic rhinitis Bronchial asthma Asthma Surgical History Hx of cholecystectomy Social History Alcohol intake: current Alcohol intake frequency: a few times a month Patient Tobacco Use Status: Former Tobacco user Sexual orientation: Straight/Heterosexual Gender identity: Female Review of Systems Const All systems reviewed & are unremarkable except as noted in HPI and below ENT Denies nasal congestion Card Denies chest pain, Denies leg edema and Denies dyspnea on exertion Resp Reports cough (mild , intermittent . ) and Denies dyspnea on exertion GI Reports no additional complaints Reports no additional complaints Musc Reports no additional complaints Neuro Reports no additional complaints Psych Reports no additional complaints Endo Reports no additional complaints Physical Exam Vital Signs: Last Vital Signs Pulse 97 12/19/24 14:16 BP 108/64 12/19/24 14:16 Pulse Ox 98 12/19/24 14:16 Oxygen Delivery Method Room Air 12/19/24 14:16 BMI result Body Mass Index 27.8 Const General: healthy appearing, comfortable, no acute distress, alert and awake Orientation/consciousness: patient oriented x3 HEENT Head: Yes normal to inspection General nose exam: No nasal polyps present and No nasal discharge present Face and sinus: Yes sinuses nontender Mouth: oropharynx normal Throat: Yes posterior oropharynx normal Eyes General: appearance normal, both eyes and all related structures Neck Neck: Yes normal visual inspection, Yes no lymphadenopathy, Yes trachea midline and Yes no JVD Thyroid: Thyroid normal Chest Chest palpation & inspection: normal inspection of the chest, normal palpation of entire chest wall and no tenderness Resp Other: Percussion note is resonant,, breath sounds are equal. No wheezes or rhonchi are heard today. Cardio Palpation: normal PMI Rate: regular rate Rhythm: regular rhythm Heart sounds: no gallops and no murmurs Peripheral pulses: Peripheral pulses 2+ throughout GI Palpation (GI): Soft to palpation, nontender, No hepatosplenomegaly present and no masses Auscultation: normal bowel sounds Back/Spine/Pelvis Thoracic/Lumbar Spine: thoracic and lumbar spine normal to inspection Skin General skin exam: no rashes or lesions noted Neuro General: patient oriented x3 and no focal motor deficits Cranial nerves: Yes CN's II-XII intact bilaterally Extrem General: Yes normal to inspection, Yes no clubbing, cyanosis or edema and Yes no calf tenderness Psych Appearance: grossly normal and well kempt Speech and movement: Normal speech and movement present Assessment & Plan Assessment & Plan (1) Bronchial asthma: Comment: PATIENT HAS CHRONIC PERSISTENT BRONCHIAL ASTHMA, EIOSINOPHILIC/ ALLERGIC, MAIN TRIGGER AT HOME IS CAT , SYMPTOMS ARE WELL CONTROLLED AT THIS TIME AND SHE HARDLY NEEDS TO USE THE RESCUE INHALER. Code(s): J45.909 - Unspecified asthma, uncomplicated Category: Medical Plan: ADVISED TO CONTINUE NUCALA INJECTION 100 MG SUBQ Q.4 WEEKS. ADVAIR 250-50 1 INHALATION B.I.D. ( BUT SHE IS USING ONLY WHEN HER SYMPTOMS FLARE UP ) VENTOLIN HFA 2 PUFFS Q 4-6 HOURS P.R.N.. MONTELUKAST 10 MG DAILY (2) Allergic rhinitis: Comment: WELL CONTROLLED , WITH MILD INTERMITTENT FLARE UPS. SHE DOES NOT HAVE TO USE ANY DECONGESTANTS OR ANTIHISTAMINICS LONG SHE IS USING MONTELUKAST 10 MG DAILY Code(s): J30.9 - Allergic rhinitis, unspecified Category: Medical Plan: CONTINUE MONTELUKAST 10 MG DAILY (3) Eosinophilia: Comment: SHE HAS HAD MILD EOSINOPHILIA, LAST COUNT 02/07/24 1.3 HAS RESPONDED WELL TO TREATMENT WITH NUCALA. Code(s): D72.10 - Eosinophilia, unspecified Category: Medical Plan: CONTINUE NUCALA 100 MG SUBQ Q.4 WEEKS . Coding Level of Care Code Est Pt Level 3 (45709) Diagnoses Bronchial asthma J45.909 Allergic rhinitis J30.9 Eosinophilia D72.10
--- OUTSIDE RECORDS SUMMARY | 2024-12-19 15:23 | XMS_ITS | Encounter Summary ---
Author Organization [employer] Address [address] [facility] 7t [place] [address] Care Team Providers Care Roading Engineer Name Role Phone Fern Schneider MD Primary Care Provider + Encounter Details Date Type Department Care Team (Late st Contact Info) Description 05/06/2022 Orders Only [facility] [address] [place], [place] [phone] Liz Frausto LPN Social History Tobacco Use Types Packs/Day Years Used Date Smoking Tobacco: Never Assessed Comments Unknown Sex and Gender Information Value Date Recorded Sex Assigned at Female 03/02/2022 10:14 AM EDT Legal Sex Female 10:14 AM EDT Gender Identity Female 03/02/2022 10:14 AM EDT Sexual Orientation Straight 03/02/2022 10 :14 AM EDT documented as of this encounter Plan of Treatment Not on file documented as of this encounter Visit Diagnoses Not on filedocumented in this encounter Care Teams Roading Engineer Relationship Specialty Start Date End Date Fern Schneider MD [address] [place] [phone] PCP - General Family Medicine 06/13/20 documented as of this encounter
== END 2024-12-19 14:28 | disposition home or self-care (01) ==
LOC: HO.HPS 14:03
PROVIDERS: PCP Internal Medicine; Visit Provider Internal Medicine
DX: J45.909 Unspecified asthma, uncomplicated (principal); J30.9 Allergic rhinitis, unspecified; D72.10 Eosinophilia, unspecified
CPT/HCPCS: 99213

== ENCOUNTER → 2024-12-19 14:03 | Outpatient (BNVA) | payer OTHER, SELFPAY | PROVIDERS: PCP Internal Medicine; Visit Provider Internal Medicine | DX: D72.10 Eosinophilia, unspecified (principal); J30.9 Allergic rhinitis, unspecified | CPT/HCPCS: 99212 ==

== ENCOUNTER 2025-04-18 11:40 | Outpatient (REF) | payer OTHER, SELFPAY ==
--- OUTSIDE RECORDS SUMMARY | 2025-04-18 11:00 | XMS_ITS | Encounter Summary ---
Author Organization [employer] Address [address] [place] [address] Care Team Providers Care Parking Enforcement Specialist Name Role Phone Fern Schneider MD Primary Care Provider + Reason for Referral * Imaging (Routine) - Authorized Specialty Diagnoses / Procedures Referred By Contac t Referred To Contact Radiology Diagnoses Postmenopausal bleeding Procedures US Pelvis Transvaginal Fern Schneider MD [address] [place], [place] Phone: tel: fax: [address] [address] Phone: tel: fax: Referral ID Status Reason Start Date Expiration Date V isits Requested Visits Authorized [id number] Authorized 04/18/2025 04/18/2026 1 1 * Imaging (Routine) - Authorized Specialty Diagnoses / Procedures Referred By Contac t Referred To Contact Radiology Diagnoses Postmenopausal bleeding Procedures Us Pelvis complete Fern Schneider MD [address] [place] [address] Phone: tel: fax: [address] [address] Phone: tel: fax: Referral ID Status Reason Start Date Expiration Date V isits Requested Visits Authorized [id number] Authorized 04/18/2025 04/18/2026 1 1 * Consultation (Urgent) - Authorized Specialty Diagnoses / Procedures Referred By Teresa beckman Referred To Contact Obstetrics and Gynecology Diagnoses Postmenopausal bleeding Fern Schneider MD [address] [place] [address] Phone: tel: fax: [facility] [address] [place] [address] [address] Phone: tel: fax: Referral ID Status Reason Start Date Expiration Date Visits Requested Visits Authorized [id number] Authorized Specialty Services Required 04/18/2026 1 1 * Imaging (Routine) - Authorized Specialty Diagnoses / Procedures Referred By Teresa beckman Referred To Contact Radiology Diagnoses Screening mammogram for breast cancer Procedures BI Mammogram Screening Tomosynthesis Bilateral Fern Schneider MD [address] [place] [address] Phone: tel: fax: [address] [address] Phone: tel: fax: Referral ID Status Reason Start Date Expiration Date V isits Requested Visits Authorized [id number] Authorized 04/18/2025 04/18/2026 1 1 Encounter Details Date Type Department Care Team (Latest Contact Info) Description 04/18/2025 11:00 AM EST Office Visit [facility] [address] [place] [address] Fern Schneider MD [address] [place], [place] [id number] Hyperhidrosis (Primary Dx); Primary hypertension; Postmenopausal bleeding; Screening mammogram for breast cancer; Overweight; Hypercholesterolemia; Smoker within last 12 months; Moderate persistent asthma without complication; Dietary counseling; Exercise counseling Social History Tobacco Use Types Packs/Day Years Used Date Smoking Tobacco: Former Cigarettes Passive Smoke Exposure: Past Smokeless Tobacco: Never Alcohol Use Standard Drinks/Week Comments Yes 0 (1 standard drink = 0.6 oz pur e alcohol) oca Alcohol Answer Date Recorded How often do you have a drink containing alcohol ? 2 04/18/2025 How many drinks containing a lcohol do you have on a typical day when you are drinking? 1 04/18/2025 How often do you have six or more drinks on one occasion? 0 04/18/2025 Housing Stability Answer Date Recorded What is your housing situation today? I have ajith velasco 04/18/[address] you li ve. Do you have problems with any of the following? None of the above 04/18/2025 Food Insecurity Answer Date Recorded Within the past 12 months, y ou worried that your food would run out before you got money to buy more: Never True 04/18/2025 Within the past 12 months,th e food you bought just didn't last and you didn't have enough money to get more: Never True Transportation Answer Date Recorded In the past 12 months, has l ack of transportation kept you from medical appts, meetings, work or from getting things needed for daily living? No 04/18/2025 Utilities Answer Date Recorded In the past 12 months, has t he electric, gas, oil or water company threatened to shut off services in your home? No 04/18/2025 Depression Answer Date Recorded Patient Health Questionnaire-2 Score 0 10/18/2023 Internet Access Answer Date Recorded Internet Access Q1 Yes 04/18/2025 Internet Access Q2 Not on file 04/18/2025 Comments No Sex and Gender Information Value Date Recorded Sex Assigned at Female 03/02/2022 10:14 AM EDT Legal Sex Female 10:14 AM EDT Gender Identity Female 03/02/2022 10:14 AM EDT Sexual Orientation Straight 03/02/2022 10 :14 AM EDT documented as of this encounter Last Filed Vital Signs Vital Sign Reading Time Taken Comments Blood Pressure 126/78 04/18/2025 11:00 AM EST Pulse 92 04/18/2025 11:00 AM EST Temperature 36.2 C (97.2 F) 04/18/2025 11:00 AM EST Respiratory Rate 16 04/18/2025 11:00 AM EST Oxygen Saturation - - Inhaled Oxygen Concentration - - Weight 70.6 kg (155 lb 9.6 oz) 04/18/2025 11:00 AM EST Height 156.2 cm (5' 1.5 ) 04/18/2025 11:00 AM ES T Body Mass Index 28.92 04/18/2025 11:00 AM EST documented in this encounter Functional Status * Over the last 2 weeks, how often have you been bothered by any of the following problems? Question Answer Date of Assessment Author Feeling nervous, anxious, or on edge 2 04/18/2025 12:19 PM EST Cindy Streeter MA Not being able to stop or co ntrol worrying 0 04/18/2025 12:19 PM EST Cindy Streeter MA Worrying too much about diff erent things 1 04/18/2025 12:19 PM EST Cindy Streeter MA Trouble relaxing 2 04/18/2025 12:19 PM Cindy Padilla MA Being so restless that it is hard to sit still 2 04/18/2025 12:19 PM EST Cindy Streeter MA Becoming easily annoyed or irritable 0 04/18/2025 12:19 PM EST Cindy Streeter MA Feeling afraid as if somethi ng awful might happen 1 04/18/2025 12:19 PM EST Cindy Streeter MA VIPIN-7 Total Score 8 04/18/2025 12:19 PM EST Cindy Streeter MA documented as of this encounter Progress Notes * Fern Schneider MD - 04/18/2025 11:00 AM EST SUBJECTIVE: Mecca Wang is a 55 y.o. year old female who presents for fu htn. Denies recent illness, injury, or hospitalization. Has hx lifelong excessive sweating of hands and feet. Notes ongoing plantar sweating; states ???feet still sweating all my life.?? Currently taking glycopyrrolate 2 per day which partially improves sxs; Denies palpitations , blurred vision, constipation while using medication. Mentions mouth dryness with prior nicotine gum formulation; changed to mint gum which reduced irritation. Nicotine dependence Currently using nicotine gum; reports it helps with smoking cessation. Abnormal uterine bleeding while on estrogen patch Reports bleeding episodes while using hormonal patch; had similar symptoms in the past and was seenby PHYSICIAN/ALLERGY/IMMUNOLOGY. Unclear if she had prior endometrial biopsy. Requests female nail professional for evaluation. Asthma Uses inhaler ???pumps?? ; reports good control and that ???they???re working well.?? Acute Concerns: Social History Social History Narrative Not on file Problem List[1] Family History[2] Review of Systems Constitutional: Negative for chills, fatigue and fever. HENT: Negative for congestion, ear pain, nosebleeds, rhinorrhea, sinus pressure, sore throat and trouble swallowing. Eyes: Negative for pain and discharge. Respiratory: Negative for cough, chest tightness and shortness of breath. Cardiovascular: Negative for chest pain, palpitations and leg swelling. Gastrointestinal: Negative for abdominal pain, blood in stool, constipation, diarrhea and nausea. Endocrine: Negative for polydipsia and polyuria. Genitourinary: Positive for vaginal bleeding. Negative for dysuria, frequency, genital sores, pelvic pain and vaginal discharge. Musculoskeletal: Negative for back pain and neck pain. Skin: Negative for rash. Allergic/Immunologic: Negative for environmental allergies. Neurological: Negative for dizziness, seizures, weakness, light-headedness and headaches. Hematological: Negative for adenopathy. Psychiatric/Behavioral: Negative for agitation, behavioral problems, self-injury and suicidal ideas. OBJECTIVE: Vitals: 04/18/25 1100 BP: 126/78 Pulse: 92 Resp: 16 Temp: 97.2 ??F (36.2 ??C) Physical Exam HENT: Right Ear: Tympanic membrane and ear canal normal. Left Ear: Tympanic membrane and ear canal normal. Mouth/Throat: Mouth: Mucous membranes are moist. Pharynx: No oropharyngeal exudate or posterior oropharyngeal erythema. Eyes: Pupils: Pupils are equal, round, and reactive to light. Cardiovascular: Rate and Rhythm: Regular rhythm. Pulses: Normal pulses. Heart sounds: Normal heart sounds. No murmur heard. Pulmonary: Breath sounds: Normal breath sounds. Abdominal: General: Bowel sounds are normal. Palpations: Abdomen is soft. Tenderness: There is no abdominal tenderness. Musculoskeletal: General: Normal range of motion. Cervical back: Neck supple. Skin: General: Skin is warm. Neurological: General: No focal deficit present. Mental Status: She is alert and oriented to person, place, and time. Psychiatric: Mood and Affect: Mood normal. Behavior: Behavior normal. Problem List Items Addressed This Visit Hyperhidrosis - Primary - Hyperhidrosis managed with glycopyrrolate; current dose noted as 1 mg per day only - Prescribed glycopyrrolate with dosing up to three times daily (maximum) if needed. - Follow-up in 3 months - Risks and side effects: Discussed dry mouth, constipation, palpitations, and blurred vision; advised hydration and symptomatic measures (water, ice). Advised to stop for 1-2 days if side effects occur and monitor. Primary hypertension Controlled. Continue off medications. Counseled re low salt diet/increase moderate physical activity. Check home BP BIW and prn CP/GALEANO/CABA Non smoking patient. Follow up in 3 months. Postmenopausal bleeding Advised to stop HRT patch, counseled re withdrawal bleeding. Refer to PHYSICIAN/ALLERGY/IMMUNOLOGY, needs endometrial biopsy. Relevant Orders Referral to Obstetrics / Gynecology Us Pelvis complete US Pelvis Transvaginal Screening mammogram for breast cancer Relevant Orders BI Mammogram Screening Tomosynthesis Bilateral Overweight Discussed re weight reduction options including exercise, life style modifications, diet and referral to emergency room specialist. Recommended to decrease soda and sugary beverage consumption, increase protein intake with meals (at least 1 portion of protein with each meal) to assist with satiety, increase dietary fiber Recommended at least 150 min/week of moderate intensity exercise. Hypercholesterolemia FU lab results. Smoker within last 12 months - Doing well on nicotine gum for cessation. - Provided refill for nicotine gum; continue use as it helps reduce smoking. Encouraged reduction in smoking to improve nasal congestion. - Risks and side effects: Discussed dry mouth from nicotine gum; advised hydration and use of ice as needed. Moderate persistent asthma without complication - controlled, declined influenza, covid , PCV IZ, advised to get them at earliest convenience. - continue Duo-neb PRN + Wixela BID + Singulair + Nucala and f/u with pulmonology - She quit smoking this year Other Visit Diagnoses Dietary counseling Exercise counseling This note was drafted using Ambient (AI) technology. The patient/patient's guardian has been informed and has consented to the use of this technology: Yes Follow up in about 3 months (around 07/17/2025) for fu DUB/labs. Medications Ordered Prior to Encounter[3] [1] Patient Active Problem List Diagnosis Hypercholesterolemia Menopausal flushing Vitamin D deficiency Visual impairment Postmenopausal bleeding Overweight Perimenopausal symptoms Gastroesophageal reflux disease without esophagitis Smoker within last 12 months Cyst of right ovary Primary hypertension Postcoital bleeding Chronic cough Screening mammogram for breast cancer Hyperhidrosis Tinea pedis of both feet Arthralgia Moderate persistent asthma with exacerbation Moderate persistent asthma without complication Chronic bilateral thoracic back pain Leukoplakia of oral cavity Encounter for cervical Pap smear with pelvic exam Bronchitis Screening for colorectal cancer [2] No family history on file. [3] Current Outpatient Medications on File Prior to Visit Medication Sig Dispense Refill cyclobenzaprine (Flexeril) 10 MG tablet TAKE 1 TABLET BY MOUTH AT BEDTIME NEEDED FOR MUSCLE SPASMS 30 tablet 0 estradiol-norethindrone (CombiPatch) 0.05-0.14 MG/DAY APPLY 1 PATCH TOPICALLY TWICE A WEEK 8 patch 2 Fluticasone-Salmeterol 250-50 MCG/ACT aerosol powder INHALE 1 PUFF BY MOUTH TWICE DAILY RINSE MOUTHAFTER USING. ibuprofen 600 MG tablet Take 1 tablet (600 mg) by mouth every 6 (six) hours if needed for mild painfor up to 20 doses. 20 tablet 0 ibuprofen 600 MG tablet Take 1 tablet (600 mg) by mouth every 6 (six) hours if needed for mild painfor up to 20 doses. 20 tablet 0 ipratropium-albuterol (Duo-Neb) 0.5-2.5 mg/3 mL nebulizer solution Take 3 mL by nebulization every 6 (six) hours. 180 mL 11 mometasone (Nasonex) 50 MCG/ACT nasal spray INSTILL 2 SPRAYS IN EACH NOSTRIL ONCE DAILY IN THE MORNING 17 g 0 montelukast (Singulair) 10 MG tablet Take 1 tablet (10 mg) by mouth in the evening. 90 tablet 0 nicotine polacrilex (Nicorette) 2 MG gum CHEW 1 PIECE OF GUM EVERY 2 HOURS NEEDED FOR SMOKING CESSATION 110 each 1 Nucala 100 MG/ML solution auto-injector Inject under the skin every 4 (four) weeks. omeprazole (PriLOSEC) [address] capsule TAKE 1 CAPSULE BY MOUTH EVERY DAY IN THE MORNING 90 capsule 1 Ventolin HFA 108 (90 Base) MCG/ACT inhaler INHALE 2 PUFFS BY MOUTH FOUR TIMES DAILY 18 g 3 [DISCONTINUED] clotrimazole-betamethasone (Lotrisone) cream APPLY 1 GRAM TOPICALLY TO THE AFFECTED AREA(S) TWICE DAILY DIRECTED FOR 28 DAYS 30 g 1 [DISCONTINUED] moisturizing mouth (Biotene Oral Dry Mouth) solution Take 1 spray by mouth if needed(dry mouth). (Patient not taking: Reported on 04/18/2025) 44.3 mL 0 [DISCONTINUED] morphine (MSIR) 15 MG tablet Take 15 mg by mouth every 6 (six) hours if needed. (Patient not taking: Reported on 04/18/2025) No current facility-administered medications on file prior to visit. documented in this encounter Miscellaneous Notes * Assessment & Plan Note - Fern Schneider MD - 04/18/2025 2:27 PM EST Associated Problem(s): Overweight Discussed re weight reduction options including exercise, life style modifications, diet and referral to emergency room specialist. Recommended to decrease soda and sugary beverage consumption, increase protein intake with meals (at least 1 portion of protein with each meal) to assist with satiety, increase dietary fiber Recommended at least 150 min/week of moderate intensity exercise. * Assessment & Plan Note - Fern Schneider MD - 04/18/2025 2:26 PM EST Associated Problem(s): Hypercholesterolemia FU lab results. * Assessment & Plan Note - Fern Schneider MD - 04/18/2025 2:26 PM EST Associated Problem(s): Postmenopausal bleeding Advised to stop HRT patch, counseled re withdrawal bleeding. Refer to PHYSICIAN/ALLERGY/IMMUNOLOGY, needs endometrial biopsy. * Assessment & Plan Note - Fern Schneider MD - 04/18/2025 2:24 PM EST Associated Problem(s): Smoker within last 12 months - Doing well on nicotine gum for cessation. - Provided refill for nicotine gum; continue use as it helps reduce smoking. Encouraged reduction in smoking to improve nasal congestion. - Risks and side effects: Discussed dry mouth from nicotine gum; advised hydration and use of ice as needed. * Assessment & Plan Note - Fern Schneider MD - 04/18/2025 2:24 PM EST Associated Problem(s): Hyperhidrosis - Hyperhidrosis managed with glycopyrrolate; current dose noted as 1 mg per day only - Prescribed glycopyrrolate with dosing up to three times daily (maximum) if needed. - Follow-up in 3 months - Risks and side effects: Discussed dry mouth, constipation, palpitations, and blurred vision; advised hydration and symptomatic measures (water, ice). Advised to stop for 1-2 days if side effects occur and monitor. * Assessment & Plan Note - Fern Schneider MD - 04/18/2025 2:20 PM EST Associated Problem(s): Moderate persistent asthma without complication - controlled, declined influenza, covid , PCV IZ, advised to get them at earliest convenience. - continue Duo-neb PRN + Wixela BID + Singulair + Nucala and f/u with pulmonology - She quit smoking this year * Assessment & Plan Note - Fern Schneider MD - 04/18/2025 2:18 PM EST Associated Problem(s): Primary hypertension Controlled. Continue off medications. Counseled re low salt diet/increase moderate physical activity. Check home BP BIW and prn CP/GALEANO/CABA Non smoking patient. Follow up in 3 months. documented in this encounter Plan of Treatment Upcoming Encounters Date Type Department Care Team (Late st Contact Info) Description 07/23/2025 11:15 AM EDT Office Visit [facility] [address] [place] [address] Fern Schneider MD [address] [place] [address] Scheduled Orders Name Type Priority Associated Diagnoses Orde r Schedule BI Mammogram Screening Tomosynthesis Bilateral Imaging Routine Screening mammogram for breast cancer Expected: 04/18/2025 (Approximate), Expires: 06/19/2026 Us Pelvis complete Imaging Routine Postmenopausal bleeding Expected: 04/18/2025, Expires: 04/18/2026 US Pelvis Transvaginal Imaging Routine Postmenopausal bleeding Expected: 04/18/2025 (Approximate), Expires: 04/18/2026 Scheduled Referrals Name Type Priority Associated Diagnoses Order Schedule Referral to Obstetrics / Gynecology Outpatient Referral Urgent Postmenopausal bleeding Expected: 04/18/2025 (Approximate), Expires: 04/18/2026 documented as of this encounter Visit Diagnoses Diagnosis Hyperhidrosis- Primary Generalized hyperhidrosis Primary hypertension Unspecified essential hypertension Postmenopausal bleeding Screening mammogram for breast cancer Overweight Hypercholesterolemia Pure hypercholesterolemia Smoker within last 12 months Moderate persistent asthma without complication Dietary counseling Dietary surveillance and counseling Exercise counseling documented in this encounter Care Teams Parking Enforcement Specialist Relationship Specialty Start Date End Date Fern Schneider MD [address] [place] [id number] PCP - General Family Medicine 06/13/20 documented as of this encounter
[2025-04-18 15:04] LABS: Anion Gap 9 (12-20); Blood Urea Nitrogen 14 mg/dL (9-16); Calcium 9.1 mg/dL (8.4-10.2); Carbon Dioxide 25 mmol/L (22-29); Chloride 105 mmol/L (96-108); Cholesterol 197 mg/dL (<200); Estimated Glomerular Filt Rate > 60; HDL Cholesterol 56 mg/dL (>40); Potassium 3.8 mmol/L (3.3-5.1); Sodium 135 mmol/L (135-145); Triglycerides 97 mg/dL (<150)
--- OUTSIDE RECORDS SUMMARY | 2025-04-18 15:32 | XMS_ITS | Encounter Summary ---
Author Organization [employer] Address [address] [place] [address] Care Team Providers Care Depilatory Painter Name Role Phone Fern Schneider MD Primary Care Provider + Reason for Visit * Reason Comments Med Refill Encounter Details Date Type Department Care Team ([facility] st Contact Info) Description 01/01/2025 Refill [facility] [address] [place], [place] [phone] Fern Schneider MD [address] [place] [address] Social History Tobacco Use Types Packs/Day Years [...] Description 07/23/2025 11:15 AM EDT Office Visit [facility] [address] [place] [address] Fern Schneider MD [address] [place] [address] documented as of this encounter Visit Diagnoses Not on filedocumented in this encounter Care Teams Depilatory Painter Relationship Specialty Start Date End Date Fern Schneider MD [address] [place] [id number] PCP - General Family Medicine 06/13/20 documented as of this encounter
--- OUTSIDE RECORDS SUMMARY | 2025-04-18 15:32 | XMS_ITS | Encounter Summary ---
Author Organization [employer] Address [address] [facility] 7[address] [place] [address] Care Team Providers Care Teradata Developer Name Role Phone Fern Schneider MD Primary Care Provider + Reason for Visit * Reason Onset Date Comments Chart Prep 04/17/2025 Encounter Details Date Type Department Care Team ([facility] Contact Info) Description 04/17/2025 Telephone [facility] [address] [place] [address] Fern Schneider MD [address] [place] [address] Chart Prep Social History Tobacco Use Types Packs/Day Years [...] encounter Miscellaneous Notes * Telephone Encounter - Lisa Hunt MA - 04/17/2025 11:08 AM EST Chart Prep Labs: not done Images: not done Referrals: not applicable Vaccines due: Covid, Flu, PCV20, RSV, and Zoster Screenings: mammogram and Hep C Screening, HIV Screening Overdue care gaps: SBIRT, SDOH, PHQ-9, VIPIN-7, and Disability screen documented in this encounter Plan of Treatment Upcoming Encounters Date Type Department Care Team (Late st Contact Info) Description 07/23/2025 11:15 AM EDT Office Visit [facility] [address] [place] [address] Fern Schneider MD [address] [place] [address] documented as of this encounter Visit Diagnoses Not on filedocumented in this encounter Care Teams Teradata Developer Relationship Specialty Start Date End Date Fern Schneider MD [address] [place] [address] PCP - General Family Medicine 06/13/20 documented as of this encounter
--- OUTSIDE RECORDS SUMMARY | 2025-04-18 15:32 | XMS_ITS | Encounter Summary ---
Author Organization [employer] Address [address] [facility] [address] [place] [address] Care Team Providers Care Leasing Sales Consultant Name Role Phone Fern Schneider MD Primary Care Provider + Reason for Visit * Reason Comments Med Refill Encounter Details Date Type Department Care Team ([facility] st Contact Info) Description 09/25/2024 Refill [facility] [address] [place], [place] [phone] Fern Schneider MD [address] [place] [address] Social History Tobacco Use Types Packs/Day Years [...] Description 07/23/2025 11:15 AM EDT Office Visit [facility] [address] [place] [address] Fern Schneider MD [address] [place] [address] documented as of this encounter Visit Diagnoses Not on filedocumented in this encounter Care Teams Leasing Sales Consultant Relationship Specialty Start Date End Date Fern Schneider MD [address] [place] [id number] PCP - General Family Medicine 06/13/20 documented as of this encounter
--- OUTSIDE RECORDS SUMMARY | 2025-04-18 15:32 | XMS_ITS | Encounter Summary ---
Author Organization [employer] Address 75 [facility] 7t [place] [address] Care Team Providers Care Civil Service Worker Name Role Phone Fern Schneider MD Primary Care Provider + Reason for Visit * Reason Onset Date Comments Med Refill 04/12/2025 Encounter Details Date Type Department Care Team (Late st Contact Info) Description 04/12/2025 Refill [facility] [address] [place] [address] Fern Schneider MD [address] [place] [address] Primary hypertension (Primary Dx); Hypercholesterolemia Social History Tobacco Use Types Packs/Day Years [...] encounter Miscellaneous Notes * Telephone Encounter - Cindy Streeter MA - 04/13/2025 2:25 PM EST TC to pt re: message below Pt agreed to 04/18/25 @ 11 AM appt approved by Breana Amanda informed to get labs done Wednesday or Wednesday * Telephone Encounter - Fern Schneider MD - 04/13/2025 2:07 PM EST Please schedule an appointment with me re fu hypertension/hyper hydrosis, please ask her to get labs prior to appointment w me. * Telephone Encounter - Liz Frausto LPN - 04/12/2025 2:16 PM EST Last seen 05/05/24. * Telephone Encounter - Alok Krishnan - 04/12/2025 2:07 PM EST TC from pt requesting medication refill. Medications needing refill : glycopyrrolate (Robinul) 1 MG tablet [[id number]] To be sent to: [facility] - [place] - [address] documented in this encounter Plan of Treatment Upcoming Encounters Date Type Department Care Team (Late st Contact Info) Description 07/23/2025 11:15 AM EDT Office Visit [facility] [address] [place] [address] Fern Schneider MD [address] [place] [address] Pending Results Name Type Priority Associated Diagnoses Date /Time Basic Metabolic Panel Lab Routine Primary hypertension 04/18/2025 11:54 AM EST TSH with Reflex to Free T4 Lab Routine Primary hypertension Hypercholesterolemia 04/18/2025 11:54 AM EST Lipid Panel with Reflex to Direct LDL Lab Routine Hypercholesterolemia 04/18/2025 11:54 AM EST documented as of this encounter Procedures Procedure Name Priority Date/Time Associated Diagnosis Comments TSH W/REFLEX TO FT4 Routine 04/18/2025 1 1:54 AM EST Primary hypertension Hypercholesterolemia LIPID PANEL WITH REFLEX TO DIRECT LDL Routine 04/18/2025 11:54 AM EST Hypercholesterolemia BASIC METABOLIC PANEL Routine 04/18/2025 11:54 AM EST Primary hypertension documented in this encounter Visit Diagnoses Diagnosis Primary hypertension- Primary Unspecified essential hypertension Hypercholesterolemia Pure hypercholesterolemia documented in this encounter Care Teams Civil Service Worker Relationship Specialty Start Date End Date Fern Schneider MD [address] [place] [address] PCP - General Family Medicine 06/13/20 documented as of this encounter
--- OUTSIDE RECORDS SUMMARY | 2025-04-18 15:32 | XMS_ITS | Encounter Summary ---
Author Organization [employer] Address 75 [facility] 7t [place] [address] Care Team Providers Care Pile Driving Technician Name Role Phone Fern Schneider MD Primary Care Provider + Encounter Details Date Type Department Care Team (Late st Contact Info) Description 05/06/2022 Orders Only [facility] [address] [place] [address] Liz Frausto LPN Social History Tobacco Use [...] Description 07/23/2025 11:15 AM EDT Office Visit [facility] [address] [place] [address] Fern Schneider MD 230 [place] [address] documented as of this encounter Visit Diagnoses Not on filedocumented in this encounter Care Teams Pile Driving Technician Relationship Specialty Start Date End Date Fern Schneider MD 230 [place] [address] PCP - General Family Medicine 06/13/20 documented as of this encounter
--- OUTSIDE RECORDS SUMMARY | 2025-04-18 15:33 | XMS_ITS | Encounter Summary ---
Author Organization [employer] Address 75 [facility] 7t [place] [address] Care Team Providers Care Account Executive Healthcare Name Role Phone Fern Schneider MD Primary Care Provider + Reason for Visit * Reason Onset Date Comments triage 04/29/2022 Encounter Details Date Type Department Care Team ([facility] st Contact Info) Description 04/29/2022 Telephone [facility] [address] [place] [address] Fern Schneider MD 230 [place] [address] triage Social History Tobacco Use Types Packs/Day [...] Description 07/23/2025 11:15 AM EDT Office Visit [facility] [address] [place] [address] [phone] Fern Schneider MD [address] [place] [address] documented as of this encounter Visit Diagnoses Not on filedocumented in this encounter Care Teams Account Executive Healthcare Relationship Specialty Start Date End Date Fern Schneider MD [address] [place] [phone] PCP - General Family Medicine 06/13/20 documented as of this encounter
--- OUTSIDE RECORDS SUMMARY | 2025-04-18 15:33 | XMS_ITS | Encounter Summary ---
Author Organization [employer] Address 75 [facility] 7t [place] [address] Care Team Providers Care Cost Estimating Manager Name Role Phone Fern Schneider MD Primary Care Provider + Reason for Visit * Reason Onset Date Comments Nurse Triage 12/31/2023 Encounter Details Date Type Department Care Team ([facility] st Contact Info) Description 12/31/2023 Telephone [facility] [address] [place] [address] Fern Schneider MD 230 [place] [address] Nurse Triage Social History Tobacco Use Types [...] 2 MG gum To be sent to: [facility] - [place], [place] - [address] documented in this encounter Plan of Treatment Upcoming Encounters Date Type Department Care Team (Late st Contact Info) Description 07/23/2025 11:15 AM EDT Office Visit [facility] [address] [place] [address] Fern Schneider MD [address] [place] [address] documented as of this encounter Visit Diagnoses Not on filedocumented in this encounter Care Teams Cost Estimating Manager Relationship Specialty Start Date End Date Fern Schneider MD [facility] [place] [address] PCP - General Family Medicine 06/13/20 documented as of this encounter
--- OUTSIDE RECORDS SUMMARY | 2025-04-18 15:33 | XMS_ITS | Encounter Summary ---
Author Organization [employer] Address [address] [facility] [address] 7[address] [place] [address] Care Team Providers Care Swimming Pool Installer And Servicer Name Role Phone Fern Schneider MD Primary Care Provider + Encounter Details Date Type Department Care Team (Late st Contact Info) Description 08/29/2024 Orders Only [facility] & PEDS [address] [place], [place] [phone] Chantel London Social History Tobacco Use Types Packs/Day Years [...] Description 07/23/2025 11:15 AM EDT Office Visit [facility] [address] [place] [phone] Fern Schneider MD [address] [place] [address] documented as of this encounter Procedures Procedure Name Priority Date/Time Associated Diagnosis Comments HPV MRNA E6/E7 REFLEX TO HPV 16, 18/45 Routine 03/17/2024 12:00 AM EST documented in this encounter Results * HPV mRNA E6/E7 w/Reflex to HPV Genotypes 16, 18/45 (03/17/2024 12:00 AM EST) us Historical Provider LAB CYTOLOGY ORDERABLES F inal Result [facility] [address] [place] [phone] documented in this encounter Visit Diagnoses Not on filedocumented in this encounter Care Teams Swimming Pool Installer And Servicer Relationship Specialty Start Date End Date Fern Schneider MD [address] [place] [phone] PCP - General Family Medicine 06/13/20 documented as of this encounter
--- OUTSIDE RECORDS SUMMARY | 2025-04-18 15:33 | XMS_ITS | Encounter Summary ---
Author Organization [employer] Address 75 [facility] 7t [place] [address] Care Team Providers Care Burn Center Nurse Name Role Phone Fern Schneider MD Primary Care Provider + Encounter Details Date Type Department Care Team (Latest Contact Info) Description 07/26/2018 Abstract [facility] CONVERSIONS Dental, Provider, DDS Social History Tobacco [...] Description 07/23/2025 11:15 AM EDT Office Visit [facility] [address] [place] [address] Fern Schneider MD [address] [place] [address] documented as of this encounter Visit Diagnoses Not on filedocumented in this encounter Care Teams Burn Center Nurse Relationship Specialty Start Date End Date Fern Schneider MD [address] [place] [address] PCP - General Family Medicine 06/13/20 documented as of this encounter
--- OUTSIDE RECORDS SUMMARY | 2025-04-18 15:33 | XMS_ITS | Encounter Summary ---
Author Organization [employer] Address 75 [facility] 7t [place] [address] Care Team Providers Care Store Coordinator Name Role Phone Fern Schneider MD Primary Care Provider + Reason for Visit * Reason Comments Med Refill Encounter Details Date Type Department Care Team ([facility] st Contact Info) Description 01/21/2024 Refill [facility] [address] [place] [address] Fern Schneider MD [address] [place] [address] COVID-19; Moderate persistent asthma without complication Social [...] Description 07/23/2025 11:15 AM EDT Office Visit [facility] [address] [place] [phone] Fern Schneider MD [address] [place] [address] documented as of this encounter Visit Diagnoses Diagnosis COVID-19 Moderate persistent asthma without complication documented in this encounter Care Teams Store Coordinator Relationship Specialty Start Date End Date Fern Schneider MD [address] [place] [phone] PCP - General Family Medicine 06/13/20 documented as of this encounter
--- OUTSIDE RECORDS SUMMARY | 2025-04-18 15:33 | XMS_ITS | Encounter Summary ---
Author Organization [employer] Address 75 [facility] 7t [place] [address] Care Team Providers Care Records Section Supervisor Name Role Phone Fern Schneider MD Primary Care Provider + Reason for Visit * Reason Comments Med Refill Encounter Details Date Type Department Care Team ([facility] st Contact Info) Description 12/21/2023 Refill [facility] 230 [place], [place] [phone] Fern Schneider MD [address] [place] [address] Smoker Social History Tobacco Use Types Packs/Day [...] Description 07/23/2025 11:15 AM EDT Office Visit [facility] [address] [place] [address] Fern Schneider MD [address] [place] [address] documented as of this encounter Visit Diagnoses Diagnosis Smoker Tobacco use disorder documented in this encounter Care Teams Records Section Supervisor Relationship Specialty Start Date End Date Fern Schneider MD [address] [place] [address] PCP - General Family Medicine 06/13/20 documented as of this encounter
--- OUTSIDE RECORDS SUMMARY | 2025-04-18 15:33 | XMS_ITS | Encounter Summary ---
Author Organization [employer] Address [address] [facility] 7t [place] [address] Care Team Providers Care Compressor Battery Pellets Name Role Phone Fern Schneider MD Primary Care Provider + Encounter Details Date Type Department Care Team (Late st Contact Info) Description 10/13/2022 Orders Only [facility] MED & PEDS [address] [place], [place] [phone] Liz Frausto LPN Social History Tobacco Use [...] Description 07/23/2025 11:15 AM EDT Office Visit [facility] [address] [place] [address] Fern Schneider MD [address] [place] [address] documented as of this encounter Procedures Procedure Name Priority Date/Time Associated Diagnosis Comments XR CHEST 2 VIEWS Routine 10/30/2022 4:39 PM EDT documented in this encounter Results * XR Chest 2 Views (10/30/2022 4:39 PM EDT) Anatomical Region Laterality Modality Chest Radiographic Melony ging 10/30/2022 4:39 PM EDT Narrative 11/16/2022 10:50 AM EDT [address] [address] XRay Report Signed Patient: Mecca Wang MR#: [id number] : 1970 Acct:[id number] Age/Sex: 52 / F ADM Date: 10/30/22 Loc: [facility] Attending Dr: Breana MILLS Ordering Physician: Breana Bates Date of Service: 10/30/22 Procedure(s): XR chest 2V Accession Number(s): [id number] cc: Breana Bates EXAMINATION: XR CHEST CLINICAL [...] in OV> 11/16/22 1048 DD/ 1639 TD/TT: Veneer Lathe Operator: Procedure Note Donotuseinterpreter, Image - 11/16/[address] [address] XRay Report Signed Patient: Mecca Wang NMR#: [id number] : 1970Acct:[id number] Age/Sex: 52 / FADM Date: 10/30/22 Loc: [facility] Attending Dr: Breana MILLS Ordering Physician: Breana Bates Date of Service: 10/30/22 Procedure(s): XR chest 2V Accession Number(s): [id number] cc: Breana Bates CLOTH PRINTING INSPECTOR EXAMINATION: XR CHEST CLINICAL INFORMATION: 6 and [...] pneumonia or pleural effusion. Dictated By: Lilliam iSegel MD Signed By: <Electronically signed by Lilliam Siegel MD in OV> 11/16/22 1048 DD/ 1639 TD/TT: Veneer Lathe Operator: [facility] External Provider IMG XR PROCEDURES Final Result documented in this encounter Visit Diagnoses Not on filedocumented in this encounter Care Teams Compressor Battery Pellets Relationship Specialty Start Date End Date Fern Schneider MD [address] [place] [address] PCP - General Family Medicine 06/13/20 documented as of this encounter
--- OUTSIDE RECORDS SUMMARY | 2025-04-18 15:33 | XMS_ITS | Encounter Summary ---
Author Organization [employer] Address 75 [facility] 7t [place] [address] Care Team Providers Care Managed Care Director Name Role Phone Fern Schneider MD Primary Care Provider + Encounter Details Date Type Department Care Team (Late st Contact Info) Description 06/01/2022 Orders Only [facility] [address] [place] [phone] Geena Wiley LPN Social History Tobacco Use [...] Description 07/23/2025 11:15 AM EDT Office Visit [facility] [address] [place] [address] Fern Schneider MD [address] [place] [address] documented as of this encounter Procedures Procedure Name Priority Date/Time Associated Diagnosis Comments US PELVIS TRANSVAGINAL Routine 06/12/2022 3:24 PM EST documented in this encounter Results * US Pelvis Transvaginal (06/12/2022 3:24 PM EST) Anatomical Region Laterality Modality Pelvis Ultrasound 06/12/2022 3:24 PM EST Narrative 06/15/2022 5:29 PM EST [address] [address] Ultrasound Report Signed Patient: Mecca Wang MR#: [id number] : 1970 Acct:[id number] Age/Sex: 52 / F ADM Date: 06/12/22 Loc: HO.US Attending Dr: Fern Schneider MD Ordering Physician: Fern Schneider MD Date of Service: 06/12/22 Procedure(s): US pelvic and transvaginal Accession Number(s): [id number] cc: Fern Schneider MD EXAMINATION: US PELVIS [...] in OV> 06/15/22 1726 DD/ 1524 TD/TT: Warehouse Manager: Procedure Note Donotuseinterpreter, Image - 06/15/[address] [address] Ultrasound Report Signed Patient: Mecca Wang NMR#: [id number] : 1970Acct:[id number] Age/Sex: 52 / FADM Date: 06/12/22 Loc: .US Attending Dr: Fern Schneider MD Ordering Physician: Fern Schneider MD Date of Service: 06/12/22 Procedure(s): US pelvic and transvaginal Accession Number(s): [id number] cc: Fern Schneider MD EXAMINATION: US PELVIS [...] in OV> 06/15/22 1726 DD/ 1524 TD/TT: Warehouse Manager: us [facility] External Provider IMG US PROCEDURES Edited Result - Final documented in this encounter Visit Diagnoses Not on filedocumented in this encounter Care Teams Managed Care Director Relationship Specialty Start Date End Date Fern Schneider MD [address] [place] [address] PCP - General Family Medicine 06/13/20 documented as of this encounter
--- OUTSIDE RECORDS SUMMARY | 2025-04-18 15:33 | XMS_ITS | Encounter Summary ---
Author Organization [employer] Address 75 [facility] 7t [place] [address] Care Team Providers Care Molding Cutter Name Role Phone Fern Schneider MD Primary Care Provider + Encounter Details Date Type Department Care Team (Late st Contact Info) Description 06/30/2022 Orders Only [facility] MED [facility] PEDS [address] [place] [address] Liz Frausto LPN Social History Tobacco Use [...] Description 07/23/2025 11:15 AM EDT Office Visit [facility] [address] [place] [address] Fern Schneider MD [address] [place] [address] documented as of this encounter Visit Diagnoses Not on filedocumented in this encounter Care Teams Molding Cutter Relationship Specialty Start Date End Date Fern Schneider MD [address] [place] [address] PCP - General Family Medicine 06/13/20 documented as of this encounter
--- OUTSIDE RECORDS SUMMARY | 2025-04-18 15:33 | XMS_ITS | Encounter Summary ---
Author Organization [employer] Address 75 [facility] 7t [place] [address] Care Team Providers Care Custom Van Converter Name Role Phone Fern Schneider MD Primary Care Provider + Reason for Visit * Reason Comments Med Refill Encounter Details Date Type Department Care Team ([facility] st Contact Info) Description 01/05/2024 Refill [facility] MED[facility] [address] [place] [address] Fern Schneider MD [address] [place] [address] Nicotine dependence, unspecified, uncomplicated Social History Tobacco [...] Description 07/23/2025 11:15 AM EDT Office Visit [facility] MED[facility]INE [address] [place] [address] Fern Schneider MD [address] [place] [address] documented as of this encounter Visit Diagnoses Diagnosis Nicotine dependence, unspecified, uncomplicated documented in this encounter Care Teams Custom Van Converter Relationship Specialty Start Date End Date Fern Schneider MD [address] [place] [address] PCP - General Family Medicine 06/13/20 documented as of this encounter
--- OUTSIDE RECORDS SUMMARY | 2025-04-18 15:33 | XMS_ITS | Encounter Summary ---
Author Organization [employer] Address 75 [facility] 7t [place] [address] Care Team Providers Care Worm Farmer Name Role Phone Fern Schneider MD Primary Care Provider + Reason for Visit * Reason Comments Med Refill Encounter Details Date Type Department Care Team ([facility] st Contact Info) Description 09/15/2024 Refill [facility] [address] [place] [address] Jose De Jesus Lorenzo, DMD [address] [place] [address] Social History Tobacco Use Types Packs/Day Years [...] 07/23/2025 11:15 AM EDT Office Visit [facility] [address] [place] [address] Fern Schneider MD [address] [place] [address] documented as of this encounter Visit Diagnoses Not on filedocumented in this encounter Care Teams Worm Farmer Relationship Specialty Start Date End Date Fern Schneider MD [address] [place] [address] PCP - General Family Medicine 06/13/20 documented as of this encounter
--- OUTSIDE RECORDS SUMMARY | 2025-04-18 15:33 | XMS_ITS | Clinical Summary ---
Author Organization [employer] Address [address] [facility] 7[address] [place] [address] Care Team Providers Care Division Chair Name Role Phone Kyung Ch MD Primary Care Provider + Allergies Active Allergy Reactions Criticality Noted Date Comments Nicotine Dermatitis 01/05/2017 Only with Nicotine patch, no allergy to other nicotine containing products Varenicline 06/01/2011 Other reaction(s): nausea, face red & itchy Medications Fluticasone-Luis meterol 250-50 MCG/ACT aerosol powder INHALE 1 PUFF BY MOUTH TWICE DAILY RINSE MOUTH AFTER USING. 024 Active Nucala 100 MG/ML solution auto-injector Inject under the skin every 4 (four) weeks. Active ipratropium-alb uterol (Duo-Neb) 0.5-2.5 mg/3 mL nebulizer solution Take 3 mL by nebulization every 6 (six) hours. 180 mL 11 024 Active ibuprofen 600 MG tablet Take 1 tablet (600 mg) by mouth every 6 (six) hours if needed for mild pain for up to 20 doses. 20 tablet 025 Active ibuprofen 600 MG tablet Take 1 tablet (600 mg) by mouth every 6 (six) hours if needed for mild pain for up to 20 doses. 20 tablet 025 Active omeprazole (PriLOSEC) [address] capsuleIndicati ons:Gastroesoph ageal reflux disease without esophagitis TAKE 1 CAPSULE BY MOUTH EVERY DAY IN THE MORNING 90 capsule 1 025 Active estradiol-noret hindrone (CombiPatch) 0.05-0.14 MG/DAYIndicatio ns:Menopausal flushing APPLY 1 PATCH TOPICALLY TWICE A WEEK 8 patch 2 5 5:31 PM EST Active Ventolin HFA 108 (90 Base) MCG/ACT inhalerIndicati ons:Moderate persistent extrinsic asthma without complication INHALE 2 PUFFS BY MOUTH FOUR TIMES DAILY 18 g 3 Active nicotine polacrilex (Nicorette) 2 MG gum CHEW 1 PIECE OF GUM EVERY 2 HOURS NEEDED FOR SMOKING CESSATION 110 each 1 5 5:31 PM EST Active mometasone (Nasonex) 50 MCG/ACT nasal spray INSTILL 2 SPRAYS IN EACH NOSTRIL ONCE DAILY IN THE MORNING 17 g Active montelukast (Singulair) 10 MG tablet Take 1 tablet (10 mg) by mouth in the evening. 90 tablet 5 5:31 PM EST Active cyclobenzaprine (Flexeril) 10 MG tabletIndicatio ns:Muscle spasm TAKE 1 TABLET BY MOUTH AT BEDTIME NEEDED FOR MUSCLE SPASMS 30 tablet 5 5:31 PM EST Active glycopyrrolate (Robinul) 1 MG tablet Take 1 tablet (1 mg) by mouth 3 times daily. 270 tablet 1 2025 Active clotrimazole-be tamethasone (Lotrisone) cream APPLY 1 GRAM TOPICALLY TO THE AFFECTED AREA(S) TWICE DAILY DIRECTED FOR 28 DAYS 30 g 1 024 2024 Discontinued(T herapy completed) morphine (MSIR) 15 MG tablet Take 15 mg by mouth every 6 (six) hours if needed. 024 2024 Discontinued(T herapy completed) moisturizing mouth (Biotene Oral Dry Mouth) solution Take 1 spray by mouth if needed (dry mouth). 44.3 mL 024 2024 Discontinued(T herapy completed) montelukast (Singulair) 10 MG tablet TAKE 1 TABLET BY MOUTH EVERY DAY IN THE EVENING 90 tablet 1 025 2024 Discontinued(R eorder (will not trigger notification to Pharmacy)) cyclobenzaprine (Flexeril) 10 MG tabletIndicatio ns:Muscle spasm TAKE 1 TABLET BY MOUTH AT BEDTIME NEEDED FOR MUSCLE SPASMS 30 tablet 2 5:31 PM EST 025 2024 Discontinued(R eorder (will not trigger notification to Pharmacy)) mometasone (Nasonex) 50 MCG/ACT nasal spray INSTILL 2 SPRAYS IN EACH NOSTRIL ONCE DAILY IN THE MORNING 17 g 3 025 2024 Discontinued(R eorder (will not trigger notification to Pharmacy)) Active Problems Problem Noted Date Diagnosed Date Screening for colorectal cancer 10/18/2024 Bronchitis 05/05/2024 Assessment & Plan (05/08/2024 12:16 [...] asthma without complication 02/07/2024 Assessment & Plan (04/18/2025 2:20 PM EST): - controlled, declined influenza, covid , PCV IZ, advised to get them at earliest convenience. - continue Duo-neb PRN + Wixela BID + Singulair + Nucala and f/u with pulmonology - She quit smoking this year Assessment & Plan (02/07/2024 12:30 PM EDT): [...] intraarticular inj Hyperhidrosis 08/10/2023 Assessment & Plan (04/18/2025 2:24 PM EST): - Hyperhidrosis managed with glycopyrrolate; current dose [...] days if side effects occur and monitor. Assessment & Plan (08/10/2023 2:20 PM EDT): [...] 4m Primary hypertension 11/20/2022 Assessment & Plan (04/18/2025 2:18 PM EST): Controlled. Continue off medications. Counseled re low salt diet/increase moderate physical activity. Check home BP BIW and prn CP/GALEANO/CABA Non smoking patient. Follow up in 3 months. Assessment & Plan (03/17/2024 12:25 PM EST): [...] BIW and prn CP/GALEANO/CABA Non smoking patient. Postcoital bleeding 11/20/2022 Assessment & Plan (11/20/2022 12:16 PM EDT): Resolved, reconsult PRN currently treated for UTI Gastroesophageal reflux disease without esophagi tis 08/18/2022 Assessment & Plan (08/18/2022 10:57 AM EDT): Recently quit smoking. Use omeprazole x2 months and then PRN. Smoker within last 12 months 08/18/2022 Assessment & Plan (04/18/2025 2:24 PM EST): - Doing well on nicotine gum for cessation. - Provided refill for nicotine gum; continue use as it helps reduce smoking. Encouraged reduction in smoking to improve nasal congestion. - Risks and side effects: Discussed dry mouth from nicotine gum; advised hydration and use of ice as needed. Assessment & Plan (08/10/2023 9:45 AM EDT): [...] 05/20/2022 Postmenopausal bleeding 05/20/2022 Assessment & Plan (04/18/2025 2:26 PM EST): Advised to stop HRT patch, counseled re withdrawal bleeding. Refer to SENIOR CONTROLS ENGINEER, needs endometrial biopsy. Assessment & Plan (12/09/2023 3:40 PM EDT): [...] w me in 1m, consider referral to exhaust emissions automotive technician again. Hypercholesterolemia 07/24/2016 Assessment & Plan (04/18/2025 2:27 PM EST): FU lab results. Assessment & Plan (12/09/2023 3:42 PM EDT): Advised to get labs done prior to next appt. She's not on meds Recommended moderate amount of exercise and increase consumption of fruit, vegetables, fish and high fiber foods. Should decrease consumption of highly saturated fats or trans fats. Vitamin D deficiency 07/24/2016 Overweight 08/01/2015 Assessment & Plan (04/18/2025 2:27 PM EST): Discussed re weight reduction options including exercise, life style modifications, diet and referral to electronic data interchange specialist. Recommended to decrease soda and sugary beverage consumption, increase protein intake with meals (at least 1 portion of protein with each meal) to assist with satiety, increase dietary fiber Recommended at least 150 min/week of moderate intensity exercise. Assessment & Plan (02/10/2024 3:09 PM EDT): Discussed re weight reduction options including exercise, life style modifications, diet and referral to electronic data interchange specialist. Recommended to decrease soda and sugary [...] Problem Noted Date Diagnosed Date Resolved Date Postnasal drip 11/20/2022 04/18/2025 Assessment & Plan (11/20/2022 12:16 PM EDT): DC flonase and start nasonex Use nasal saline Elevated blood pressure reading 05/20/2022 03/17/2024 Assessment [...] 3:05 PM EST): For few years npw, corey HTN Order labs to assess CV Risk factors and fu w me in 1m Counseled re low salt diet/increase moderate physical activity. Check home BP BIW and prn CP/GALEANO/CABA Quit smoking 1-2m ago. Encounters Date Type Department Care Team Description 04/18/2025 11:00 AM EST Office Visit [facility] [address] [place] [address] Kyung Ch MD Hyperhidrosis (Primary Dx); Primary hypertension; Postmenopausal bleeding; Screening mammogram for breast cancer; Overweight; Hypercholesterolemia; Smoker within last 12 months; Moderate persistent asthma without complication; Dietary counseling; Exercise counseling 04/18/2025 Travel 04/17/2025 Telephone [facility] [address] [place] [address] Kyung Ch MD Chart Prep 04/12/2025 Refill [facility] [address] [place] [address] Kyung Ch MD Primary hypertension (Primary Dx); Hypercholesterolemia 2025 Refill [facility] [address] [place] [address] Kyung Ch MD Muscle spasm 04/08/2025 Refill [facility] [address] [place] [address] Kyung Ch MD Muscle spasm 03/16/2025 Refill [facility] [address] [place] [address] Kyung Ch MD 02/27/2025 Refill [facility] [address] [place] [address] Kyung Ch MD Moderate persistent extrinsic asthma without complication 02/12/2025 Refill [facility] [address] [place], [place] [phone] Kyung Ch MD 02/06/2025 Refill [facility] [address] [place] [address] Kyung Ch MD Menopausal flushing from Last 3 Months Immunizations Immunization Administration Dates Next Due Hep B, adult [...] is your housing situation today? I have ajithrubi velasco 04/18/[address] you [...] 16 04/18/2025 11:00 AM EST Oxygen Saturation 98% 05/05/2024 2:43 PM EST Inhaled Oxygen Concentration - - Weight 70.6 kg (155 lb 9.6 oz) 04/18/2025 11:00 AM EST Height 156.2 cm (5' 1.5 ) 04/18/2025 11:00 AM ES T Body Mass Index 28.92 04/18/2025 11:00 AM EST Plan of Treatment Upcoming Encounters Date Type Department Care Team (Late st Contact Info) Description 07/23/2025 11:15 AM EDT Office Visit [facility] [address] [place] [address] Kyung Ch MD [address] [place] [address] Health Maintenance Due Date Last Done Comments CT Colonography 1970 Colonoscopy 1970 FIT 1970 HIV Screening 1970 Sigmoidoscopy 1970 Disability Screening 1970 Hepatitis C Screening 1987 Dental X-Ray: Full Mouth 05/12/2017 05/11/2014 Pneumococcal Vaccine: 50+ Years (2 of 2 - PCV) 07/05/2018 07/05/2017 RSV Patients and Patients Aged 60 years or older (1 - Risk 50-74 years 1-dose series) 2019 Zoster Vaccines (1 of 2) 2019 Mammogram 01/27/2024 01/26/2023 Depression Screening 10/17/2024 10/18/2023, 10/18/19 24 Dental Oral Exam 12/28/2024 06/29/2024, , 12/27/2015, Additional history exists Dental Prophylaxis 12/28/2024 06/29/2024, 0 07/26/2018, 12/27/2015, Additional history exists COVID-19 Vaccine ( season) 2025 06/30/2021, 01/16/2021 Influenza Vaccine (#1) 2025 Dental X-Ray: Bitewings 06/30/2025 06/29/19 25, 07/26/2018, 12/27/2015, Additional history exists DTaP/Tdap/Td Vaccines (2 - Td or Tdap) 07/31/2025 08/01/2015 FOBT 11/09/2025 11/09/2024 Alcohol/Substance Use Screening 04/18/2026 04/18/2025 SDOH Screening 04/18/2026 04/18/2025 Tobacco Screening 04/18/2026 04/18/2025 Colorectal Cancer Screening 11/10/2027 FIT DNA/Cologuard 11/10/2027 11/09/2024 Cervical Cancer Screening 03/17/2029 HPV/Cotest 03/17/2029 03/17/2024, 03/0 08/2020, 07/05/2020, Additional history exists Pap Smear 03/17/2029 03/17/2024, 07/05/2020 Lipid Panel 04/18/2030 04/18/2025, 10/0 11/2023, 04/25/2020 Hepatitis B Vaccines Completed 04/01/2018, 08/28/2016, 07/24/2016 [...] patient's age to complete this topic Meningococcal B Vaccine Aged Out No l onger eligible based on patient's age to complete [...] Procedure Name Priority Date/Time Associated Diagnosis Comments LIPID PANEL WITH REFLEX TO DIRECT LDL Routine 04/18/2025 11:54 AM EST Hypercholesterolemia TSH W/REFLEX TO FT4 Routine 04/18/2025 1 1:54 AM EST Primary hypertension Hypercholesterolemia BASIC METABOLIC PANEL Routine 04/18/2025 11:54 AM EST Primary hypertension LAB COLOGUARD COLON CANCER SCREEN Routine 11/09/2024 12:00 PM EDT Screening for colorectal cancer PROPHYLAXIS - ADULT Routine 06/29/2024 1 :00 PM EST BITEWINGS - 4 RADIOGRAPHIC IMAGES Routine 06/29/2024 1:00 PM EST PERIODIC ORAL EVALUATION - ESTABLISHED PATIENT Routine 06/29/2024 1:00 PM EST HPV MRNA E6/E7 REFLEX TO HPV 16, 18/45 Routine 03/17/2024 12:00 AM EST PAP SMEAR Routine 03/17/2024 12:00 AM EST Encounter for cervical Pap smear with pelvic exam BI MAMMOGRAM SCREENING TOMOSYNTHESIS BILATERAL Routine 01/26/2023 12:00 PM EDT INTRAORAL - COMPLETE SERIES OF RADIOGRAPHIC IMAGES Routine 05/11/2014 12:00 AM EST from Last 3 Months or Most Recently Relevant to Health Maintenance Results * Cologuard?? colon cancer screening (11/09/2024 12:00 PM EDT) Cologuard Result Negative Negative 11/16/19 25 4:14 AM EDT [facility] (CLIA #:[id number]) Comment: The Cologuard (TM) test was performed on this specimen. NEGATIVE TEST RESULT. A negative Cologuard result indicates a low likelihood that a colorectal cancer (CRC) or advanced adenoma (adenomatous polyps with more advanced pre-malignant features) is present. The chance that a person with a negative Cologuard test has a colorectal cancer is less than 1 in 1500 (negative predictive value >99.9%) or has an advanced adenoma is less than 5.3% (negative predictive value 94.7%). These data are based on a prospective cross-sectional study of 10,000 individuals at average risk for colorectal cancer who were screened with both Cologuard and colonoscopy. (Pastora Olivier al, N Engl J Med 2014;370(14):1286- 1297) The normal value (reference range) for this assay is negative. COLOGUARD RE-SCREENING RECOMMENDATION: Periodic colorectal cancer screening is an important part of preventive healthcare for asymptomatic individuals at average risk for colorectal cancer. Following a negative Cologuard result, the [place] [employer] Society and U.S. Multi-Society Task Force screening guidelines recommend a Cologuard re-screening interval of 3 years. References: [place] [employer] Guideline for Colorectal Cancer Screening: https://www.cancer.org/cancer/zsvuv-tilklv-dfuyvp/utntqperl-eavxjeezs-gltjhwz/ac s-rec ommendations.html.; Manjit DK, Salvador BARNES, Marylu LeijaK, Colorectal Cancer Screening: Recommendations for Physicians and Patients from the U.S. Multi-Society Task Force on Colorectal Cancer Screening , Am J Gastroenterology 2017; 112:5107-2831. TEST DESCRIPTION: Composite algorithmic analysis of stool DNA-biomarkers with hemoglobin immunoassay. Quantitative values of individual biomarkers are not reportable and are not associated with individual biomarker result reference ranges. Cologuard is intended for colorectal cancer screening of adults of either sex, 45 years or older, who are at average-risk for colorectal cancer (CRC). Cologuard has been approved for use by the U.S. FDA. The performance of Cologuard was established in a cross sectional study of average-risk adults aged 50-84. Cologuard performance in patients ages 45 to 49 years was estimated by sub-group analysis of near-age groups. Colonoscopies performed for a positive result may find as the most clinically significant lesion: colorectal cancer [4.0%], advanced adenoma (including sessile serrated polyps greater than or equal to 1cm diameter) [20%] or non- advanced adenoma [31%]; or no colorectal neoplasia [45%]. These estimates are derived from a prospective cross-sectional screening study of 10,000 individuals at average risk for colorectal cancer who were screened with both Cologuard and colonoscopy. (Pastora Wu, N Engl J Med 2014;370(14):1711-2023.) Cologuard may produce a false negative or false positive result (no colorectal cancer or precancerous polyp present at colonoscopy follow up). A negative Cologuard test result does not guarantee the absence of CRC or advanced adenoma (pre-cancer). The current Cologuard screening interval is every 3 years. ([place] [employer] Society and U.S. Multi-Society Task Force). Cologuard performance data in a 10,000 patient pivotal study using colonoscopy as the reference method can be accessed at the following location: www.[employer]/results. Additional description of the Cologuard test process, warnings and precautions can be found at www.cologuard.com. Stool specimen (specimen) 11/09/2024 12:00 PM EDT 11/10/2024 10:54 AM EDT Kyung Ch MD LAB MOLECULAR DIAGNOSTIC S ORDERABLES Final Result Performing Organization Address City/[facility]/ZIP Co de Phone Number [facility] (CLIA #:[id number]) [address] [place] [address], * HPV mRNA E6/E7 w/Reflex to HPV Genotypes 16, 18/45 (03/17/2024 12:00 AM EST) [facility] Provider LAB CYTOLOGY ORDERABLES F inal Result Performing Organization Address City/[facility]/ZIP Co de Phone Number [facility] [address] [place] [phone] * Pap Smear (03/17/2024 12:00 AM EST) Swab Cervical swab / Unknown 03/17/2024 03/17/2024 1:50 PM EST Narrative [facility] - 04/05/2024 7:49 AM EST ----- ------- Name: Mecca Wang Age/Sex: 53/F : 1970 Unit#: [id number] Attend Dr: Kyung Ch MD Re03/17/24 Status: DEP REF Location: [facility] Disch: ----- ------- SPEC : [id number] RECD: 03/17/24 STATUS: DESTINY PALOMINO NUM: [id number] BETZAIDA: 03/17/24-[address] [facility] [address]: Kyung Ch MD ENTERED: 03/17/24 SP TYPE: Pap Smr OTHR DR: ORDERED: Pap Smear Interpretation Satisfactory for evaluation. Negative for intraepithelial lesion or malignancy. No endocervical cells seen. Coccobacilli consistent with shift in vaginal cinthia. HPV High Risk: Negative HPV Genotyping 16: Negative HPV Genotyping 18: Negative Clinical Information LMP: Postmenopausal Previous PAP test: 2020, WNL Material Received ThinPrep-Cervical ----- ------- Signed (signature on file) SHERIE Lane (ASCP) 04/05/24 0749 ----- ------- END OF REPORT Kyung Ch MD LAB CYTOLOGY ORDERABLES Final Result [facility] [address] [place] [address] [phone] * BI Mammogram Screening Tomosynthesis Bilateral (01/26/2023 12:00 PM EDT) Anatomical Region Laterality Modality Breast Bilateral Mammography 01/26/2023 12:0 0 PM EDT Narrative 02/21/2023 7:42 AM EDT [address] [place] [address] Mammography Report Signed Patient: Mecca Wang MR#: [id number] : 1970 Acct:[id number] Age/Sex: 52 / F ADM Date: 01/26/23 Loc: HO.MAMMO Attending Dr: Kyung Ch MD Ordering Physician: Kyung Ch MD Results: 1Ne gative Date of Service: 01/26/23 Follow Up: 1 Year From [facility] Mammogram Procedure(s): MM tomosynthesis screening BI Accession Number(s): [id number] cc: Kyung Ch MD EXAMINATION: MM SCREENING [...] in OV> 02/21/23 0738 DD/ 1200 TD/TT: Co Founder And Cto: Procedure Note Donotuseinterpreter, Image - 02/21/2023 [place] [facility] [address] [place] [address] Mammography Report Signed Patient: Mecca Wnag NMR#: [id number] : 1970Acct:[id number] Age/Sex: 52 / FADM Date: 01/26/23 Loc: GIA Attending Dr: Kyung Ch MD Ordering Physician: Kyung Ch MDResults: 1Ne gative Date of Service: 01/26/23Follow Up: 1 Year From Orig inal Mammogram Procedure(s): MM tomosynthesis screening BI Accession Number(s): [id number] cc: Kyung Ch MD EXAMINATION: MM SCREENING [...] in OV> 02/21/23 0738 DD/ 1200 TD/TT: Co Founder And Cto: Kyung Ch MD IMG BI PROCEDURES Final Result from Last 3 Months or Most Recently Relevant to Health Maintenance Insurance [facility] 2 DENTAL - HSN PARTIAL (MEDICAID) [address] [place] [id number] Care Teams Division Chair Relationship Specialty Start Date End Date Kyung Ch MD [address] [place] [address] [place] [address] PCP - General Family Medicine 06/13/20
--- OUTSIDE RECORDS SUMMARY | 2025-04-18 15:33 | XMS_ITS | Encounter Summary ---
Author Organization [employer] Address [address] [place] [address] Care Team Providers Care It Security Project Manager Name Role Phone Fern Schneider MD Primary Care Provider + Encounter Details Date Type Department Care Team (Latest Contact Info) Description 04/18/2025 Travel Social History Tobacco Use Types Packs/Day Years [...] AM EDT documented as of this encounter Functional Status * Over the last 2 weeks, how often have you been bothered by any of the following problems? Question Answer Date of Assessment Author Feeling nervous, anxious, or on edge 2 04/18/2025 12:19 PM Cindy Padilla MA Not being able to stop or co ntrol worrying 0 04/18/2025 12:19 PM Cindy Padilla MA Worrying too much about diff erent things 1 04/18/2025 12:19 PM Cindy Padilla MA Trouble relaxing 2 04/18/2025 12:19 PM Cindy Padilla MA Being so restless that it is hard to sit still 2 04/18/2025 12:19 PM Cindy Padilla MA Becoming easily annoyed or irritable 0 04/18/2025 12:19 PM Cindy Padilla MA Feeling afraid as if somethi ng awful might happen 1 04/18/2025 12:19 PM Cindy Padilla MA VIPIN-7 Total Score 8 04/18/2025 12:19 PM Cindy Padilla MA documented as of this encounter Plan of Treatment Upcoming Encounters Date Type Department Care Team (Late st Contact Info) Description 07/23/2025 11:15 AM EDT Office Visit [facility] [address] [place] [address] Fern Schneider MD [address] [place] [address] documented as of this encounter Visit Diagnoses Not on filedocumented in this encounter Care Teams It Security Project Manager Relationship Specialty Start Date End Date Fern Schneider MD [address] [place] [phone] PCP - General Family Medicine 06/13/20 documented as of this encounter
[2025-04-18 18:12] LABS: Reflex LDLD? No
== END 2025-04-18 11:41 | disposition home or self-care (01) ==
LOC: HO.HHCL 11:40
PROVIDERS: PCP Internal Medicine; Visit Provider Internal Medicine
DX: I10 Essential (primary) hypertension (principal); E78.00 Pure hypercholesterolemia, unspecified
CPT/HCPCS: 36415; 80048; 80061; 84443